=== PATIENT | male | born 1965 | race Hispanic/Latino ===

== ENCOUNTER 2017-02-09 17:13 | Emergency (ER) | payer MEDICAID ==
[2017-02-09 17:26] VITALS: RESP 20; TEMP 97.7
[2017-02-09] MEDS ORDERED: Naloxone 0.4 mg/ml Inj (Adult) ONE (17:36)
[2017-02-09] MEDS ORDERED: Naloxone 0.4 mg/ml Inj (Adult) IVP ONE (17:38)
[2017-02-09 18:11] LABS: BASO # 0.1 K/uL (0.0-0.2); BASO % 1.1 % (0.0-2.0); EOS # 0.1 K/uL (0.0-0.7); EOS % 1.7 % (0.0-4.0); LYMPH # 2.1 K/uL (1.0-4.3); LYMPH % 29.8 % (20.0-40.0); MEAN CELL VOLUME 86.7 fL (80.0-94.0); MEAN CORPUSCULAR HGB CONC 33.5 g/dL (33.0-37.0); MONO # 0.5 K/uL (0.0-0.8); MONO % 7.4 % (0.0-10.0); RED CELL DISTRIBUTION WIDTH 13.3 % (11.5-14.5)
[2017-02-09 18:15] LABS: CHLORIDE 105 mmol/L (98-107); SODIUM 143 mmol/L (132-148)
[2017-02-09 18:16] LABS: POTASSIUM 3.6 mmol/L (3.6-5.2)
[2017-02-09 18:18] LABS: ALB/GLOB RATIO 1.5 (1.0-2.1); ALKALINE PHOSPHATASE 54 U/L (38-126); ALT/SGPT 54 U/L (21-72); AST/SGOT 51 U/L (17-59); BILIRUBIN,TOTAL 0.6 mg/dL (0.2-1.3); BLOOD UREA NITROGEN 15 mg/dL (9-20); CALCIUM 8.5 mg/dl (8.6-10.4); CARBON DIOXIDE 22 mmol/L (22-30); GFR AFRICAN-AMERICAN > 60; GLUCOSE,RANDOM 105 mg/dL (75-110); TOTAL PROTEIN 7.1 g/dL (6.3-8.3)
[2017-02-09 18:19] LABS: ALCOHOL SERUM 159 mg/dl (0-10)
--- NOTE | 2017-02-09 18:23 | RAD ---
PROCEDURE: CHEST RADIOGRAPH, 1 VIEW. Portable study 18:00. HISTORY: Detox/Psy COMPARISON: 05/29/2016. FINDINGS: LUNGS: Clear. PLEURA: No pneumothorax or pleural fluid seen. CARDIOVASCULAR: No radiographic findings to suggest acute or significant cardiovascular disease. OSSEOUS STRUCTURES: No significant abnormalities. VISUALIZED UPPER ABDOMEN: Normal. OTHER FINDINGS: None. IMPRESSION: No active disease. No acute/significant interval changes.
[2017-02-09 18:25] VITALS: BP 128/78; PULSE 58; O2SAT 98
--- NOTE | 2017-02-09 18:55 | C.PDOC ---
History Of Present Illness 51 y/o male presents to ED via EMS for public intoxication and heroin abuse. Patient states he meant to buy cocaine from his drug dealer today but received heroin instead. Reports becoming sleepy after snorting it. Denies any other physical complaints at this time. Patient with many past presentations for alcohol abuse. Time Seen by Provider: 02/09/17 17:31 Chief Complaint (Nursing): Substance Abuse History Per: Patient History/Exam Limitations: no limitations Onset/Duration Of Symptoms: Hrs Current Symptoms Are (Timing): Still Present Modifying Factor(s): Alcohol, Narcotics Recent travel outside of the [place]: No Past Medical History Reviewed: Historical Data, Nursing Documentation, Vital Signs Vital Signs: Last Vital Signs Temp 97.7 F 02/09/17 17:25 Pulse 58 L 02/09/17 18:24 Resp 20 02/09/17 18:24 BP 128/78 02/09/17 18:24 Pulse Ox 98 02/09/17 19:06 - Medical History PMH: Anxiety, Bronchitis, COPD (Chronic bronchitis), Hepatitis, Pneumonia - [facility] Procedures DETOXIFICATION SERVICES FOR SUBSTANCE ABUSE TREATMENT (05/26/16) GROUP PSYCHOTHERAPY (05/26/16) LINEAR REP LID LACER (07/03/15) SUTURE OF LIP LACERATION (07/03/15) Family History: States: Unknown Family Hx - Social History Hx Tobacco Use: Yes Hx Alcohol Use: Yes Hx Substance Use: Yes (30 yrs ago) - Immunization History Hx Tetanus Toxoid Vaccination: No Hx Influenza Vaccination: No Hx Pneumococcal Vaccination: Yes Review Of Systems Except As Marked, All Systems Reviewed And Found Negative. Constitutional: Negative for: Fever, Chills Cardiovascular: Negative for: Chest Pain, Palpitations Respiratory: Negative for: Cough, Shortness of Breath, Wheezing Gastrointestinal: Negative for: Nausea, Vomiting Skin: Negative for: Rash Neurological: Negative for: Headache, Dizziness Physical Exam - Physical Exam Appears: Non-toxic, No Acute Distress, Other (somnolent, etoh on breath) Skin: Warm, Dry Head: Atraumatic, Normacephalic Eye(s): bilateral: Normal Inspection, Other (pinpoint) Oral Mucosa: Moist Chest: Symmetrical Cardiovascular: Rhythm Regular Respiratory: Normal Breath Sounds, No Rales, No Rhonchi, No Wheezing Gastrointestinal/Abdominal: Soft, No Tenderness, No Guarding, No Rebound Extremity: Normal ROM, Capillary Refill (< 2 sec. ) Neurological/Psych: Oriented x3, Normal Speech, Normal Cognition ED Course And Treatment - Laboratory Results Result Diagrams: 02/09/17 18:03 02/09/17 18:03 Lab Interpretation: Abnormal (etoh 159H, tox + opiates, cocaine, thc) O2 Sat by Pulse Oximetry: 98 (RA) Pulse Ox Interpretation: Normal Progress Note: Treated with Narcan. EKG, UDS, UA ordered. O2 via nasal cannula applied. Reevaluation Time: 19:36 Reassessment Condition: Improved (clinically sober, texting and speaking on phone) Medical Decision Making Medical Decision Making: polysubstance abuse Disposition Doctor Will See Patient In The: Office Counseled Patient/Family Regarding: Studies Performed, Diagnosis - Disposition Disposition: HOME/ ROUTINE Disposition Time: 19:37 Condition: GOOD - Clinical Impression Clinical Impression: Alcohol dependence, Polysubstance (including opioids) dependence w/o physiol dependence - Scribe Statement The provider has reviewed the documentation as recorded by the Lul Tellez Provider Scribe Attestation: All medical record entries made by the Lul were at my direction and personally dictated by me. I have reviewed the chart and agree that the record accurately reflects my personal performance of the history, physical exam, medical decision making, and the department course for this patient. I have also personally directed, reviewed, and agree with the discharge instructions and disposition.
[2017-02-09 19:18] LABS: RBC URINE 31 /hpf (0-3); URINE BACTERIA RARE (<OCC); URINE BILIRUBIN NEGATIVE (NEGATIVE); URINE BLOOD 2+ (NEGATIVE); URINE COLOR Yellow (YELLOW); URINE GLUCOSE (UA) NORMAL (Normal); URINE KETONE NEGATIVE (NEGATIVE); URINE LEUKOCYTE ESTERASE NEG Leu/uL (Negative); URINE PROTEIN NEGATIVE (NEGATIVE); URINE UROBILINOGEN NORMAL mg/dL (0.2-1.0); WBC URINE 1 /hpf (0-5)
--- NOTE | 2017-02-14 09:00 | CARD ---
APPROVED REPORT EKG Measurement Heart [id number] <Conclusion> Normal sinus rhythm LEFT AXIS DEVIATION ABNormal ECG
== END 2017-02-09 19:40 | disposition home or self-care (01) ==
LOC: C.ER 17:13
DX: F10.20 Alcohol dependence, uncomplicated (principal); F11.20 Opioid dependence, uncomplicated; Y90.6 Blood alcohol level of 120-199 mg/100 ml
CPT/HCPCS: 71010; 80053; 80320; 80324; 80345; 80346; 80349; 80353; 80358; 80361; 81001; 83992; 84484; 85025; 96374; 99285; J2310

== ENCOUNTER 2017-03-22 14:03 | Emergency (ER) | payer MEDICAID ==
[2017-03-22 15:19] VITALS: PULSE 74; RESP 20; TEMP 98.2; O2SAT 95
--- NOTE | 2017-03-22 16:04 | C.PDOC ---
History Of Present Illness 52 y/o male presents to ED requesting detox. Patient states he "wanted to self detox from ETOH so he started using heroin". Patient is currently at ED asking for detox of both heroin and ETOH. No other complaints at this time. Time Seen by Provider: 03/22/17 16:01 Chief Complaint (Nursing): Substance Abuse History Per: Patient History/Exam Limitations: no limitations Onset/Duration Of Symptoms: Days Current Symptoms Are (Timing): Still Present Modifying Factor(s): Alcohol Past Medical History Reviewed: Historical Data, Nursing Documentation, Vital Signs Vital Signs: Last Vital Signs Temp 98.2 F 03/22/17 15:17 Pulse 74 03/22/17 15:17 Resp 20 03/22/17 15:17 BP 133/68 03/22/17 15:17 Pulse Ox 95 03/22/17 16:04 - Medical History PMH: Anxiety, Bronchitis, COPD (Chronic bronchitis), Hepatitis, Pneumonia - [facility] Procedures DETOXIFICATION SERVICES FOR SUBSTANCE ABUSE TREATMENT (05/26/16) GROUP PSYCHOTHERAPY (05/26/16) LINEAR REP LID LACER (07/03/15) SUTURE OF LIP LACERATION (07/03/15) Family History: States: Unknown Family Hx - Social History Hx Tobacco Use: Yes Hx Alcohol Use: Yes Hx Substance Use: Yes (30 yrs ago) - Immunization History Hx Tetanus Toxoid Vaccination: No Hx Influenza Vaccination: No Hx Pneumococcal Vaccination: Yes Review Of Systems Except As Marked, All Systems Reviewed And Found Negative. Constitutional: Negative for: Fever, Chills Cardiovascular: Negative for: Chest Pain Respiratory: Negative for: Shortness of Breath Gastrointestinal: Negative for: Nausea, Vomiting, Diarrhea Neurological: Negative for: Weakness, Headache Psych: Negative for: Anxiety, Depression Physical Exam - Physical Exam Appears: No Acute Distress Skin: Normal Color, Warm Head: Atraumatic, Normacephalic Oral Mucosa: Moist Neck: Normal ROM Respiratory: No Rales, No Rhonchi, No Wheezing Gastrointestinal/Abdominal: Soft, No Tenderness, No Guarding, No Rebound Extremity: Normal ROM, Capillary Refill (<2 seconds) Neurological/Psych: Oriented x3, Normal Speech ED Course And Treatment O2 Sat by Pulse Oximetry: 95 (RA) Pulse Ox Interpretation: Normal - Physician Consult Information Time Consulting Physician Contacted: 16:02 Outcome Of Conversation: D/W CRISIS MARIE, NO DETOX BEDS Medical Decision Making Medical Decision Making: Plan: Detox medications are currently unavailable, Patient will be D/C with a list of detox centers Disposition Counseled Patient/Family Regarding: Diagnosis, Need For Followup - Disposition Referrals: [facility] [Other] Disposition: HOME/ ROUTINE Disposition Time: 16:03 Condition: GOOD Instructions: Polysubstance Abuse (ED) - Clinical Impression Clinical Impression: Polysubstance abuse - PA / UNINDENTURED APPRENTICE / Resident Statement MD/DO has reviewed & agrees with the documentation as recorded. MD/DO has examined the patient and agrees with the treatment plan. - Scribe Statement The provider has reviewed the documentation as recorded by the Gilmeribsunshine Robles All medical record entries made by the Lul were at my direction and personally dictated by me. I have reviewed the chart and agree that the record accurately reflects my personal performance of the history, physical exam, medical decision making, and the department course for this patient. I have also personally directed, reviewed, and agree with the discharge instructions and disposition.
[2017-03-22 16:35] VITALS: BP 112/68
== END 2017-03-22 16:34 | disposition home or self-care (01) ==
LOC: C.ER 14:03
DX: F11.10 Opioid abuse, uncomplicated (principal); F10.10 Alcohol abuse, uncomplicated; Y90.9 Presence of alcohol in blood, level not specified

== ENCOUNTER 2017-04-19 16:04 | Emergency (ER) | payer MEDICAID ==
[2017-04-19 16:08] VITALS: BP 134/83; PULSE 68; RESP 20; TEMP 98.3; O2SAT 98
--- NOTE | 2017-04-19 17:37 | C.PDOC ---
History Of Present Illness Patient is a 52 y/o male that presents to the ED requesting alcohol detox. Patient notes that last drink was vodka at 2:30 this morning. Pt admits to being homeless, and living in a senior care. Otherwise, denies any suicidal ideation , or any other physical complaints at this time. Time Seen by Provider: 04/19/17 17:04 Chief Complaint (Nursing): Substance Abuse History Per: Patient History/Exam Limitations: no limitations Onset/Duration Of Symptoms: Gradual Current Symptoms Are (Timing): Still Present Suicide/Self Injury Attempted (Context): None Modifying Factor(s): Alcohol Severity: None Pain Scale Rating Of: 0 Associated Symptoms: denies: Suicidal Thoughts, Suicidal Plan Involuntary Hold By: None Recent travel outside of the [place]: No Additional History Per: Patient Past Medical History Reviewed: Historical Data, Nursing Documentation, Vital Signs Vital Signs: Last Vital Signs Temp 98.3 F 04/19/17 16:07 Pulse 68 04/19/17 16:07 Resp 20 04/19/17 16:07 BP 134/83 04/19/17 16:07 Pulse Ox 98 04/19/17 18:06 - Medical History PMH: Anxiety, Bronchitis, COPD (Chronic bronchitis), Hepatitis, Pneumonia Denies: Diabetes, HIV, HTN, Chronic Kidney Disease, Seizures, Sexually Transmitted Disease - [facility] Procedures DETOXIFICATION SERVICES FOR SUBSTANCE ABUSE TREATMENT (05/26/16) GROUP PSYCHOTHERAPY (05/26/16) LINEAR REP LID LACER (07/03/15) SUTURE OF LIP LACERATION (07/03/15) Family History: States: Unknown Family Hx - Social History Hx Tobacco Use: Yes Hx Alcohol Use: Yes Hx Substance Use: Yes (30 yrs ago) - Immunization History Hx Tetanus Toxoid Vaccination: No Hx Influenza Vaccination: No Hx Pneumococcal Vaccination: Yes Review Of Systems Except As Marked, All Systems Reviewed And Found Negative. Constitutional: Negative for: Fever, Chills Cardiovascular: Negative for: Chest Pain, Palpitations Respiratory: Negative for: Shortness of Breath Gastrointestinal: Negative for: Nausea, Vomiting, Abdominal Pain Neurological: Negative for: Headache, Dizziness Psych: Negative for: Suicidal ideation Physical Exam - Physical Exam Appears: Non-toxic, No Acute Distress Skin: Normal Color, Warm, Dry Head: Atraumatic, Normacephalic Eye(s): bilateral: Normal Inspection, EOMI Neck: Normal ROM, Supple Chest: Symmetrical, No Tenderness Cardiovascular: Rhythm Regular, No Murmur Respiratory: Normal Breath Sounds, No Rales, No Rhonchi, No Wheezing Gastrointestinal/Abdominal: Soft, No Tenderness Extremity: Normal ROM, No Deformity Neurological/Psych: Oriented x3, Normal Speech, Normal Cognition ED Course And Treatment O2 Sat by Pulse Oximetry: 98 (on RA) Pulse Ox Interpretation: Normal Progress Note: Patient was evaluated by iron worker foreman, and was informed that there are no detox beds available at this time. Patient was notified that he is pre-screened, and was instructed to return tomorrow morning at 9:00 for detox admission. Disposition - Disposition Disposition: HOME/ ROUTINE Disposition Time: 17:36 Condition: STABLE Additional Instructions: Please return tomorrow at 9 am. You are pre-screened for detox and will have a bed waiting for you. Instructions: Alcohol Dependence (ED) - Clinical Impression Clinical Impression: Alcohol dependence - PA / FIELD COUNSEL / Resident Statement MD/DO has reviewed & agrees with the documentation as recorded. - Scribe Statement The provider has reviewed the documentation as recorded by the Scribsunshine Lerner All medical record entries made by the Gilmeribsunshine were at my direction and personally dictated by me. I have reviewed the chart and agree that the record accurately reflects my personal performance of the history, physical exam, medical decision making, and the department course for this patient. I have also personally directed, reviewed, and agree with the discharge instructions and disposition.
== END 2017-04-19 17:40 | disposition home or self-care (01) ==
LOC: C.ER 16:04
DX: F10.20 Alcohol dependence, uncomplicated (principal); Y90.9 Presence of alcohol in blood, level not specified; Z59.0 Homelessness

== ENCOUNTER 2017-04-20 07:20 | Inpatient (IN) | payer MEDICAID ==
--- NOTE | 2017-04-20 07:41 | C.PDOC ---
History Of Present Illness 52 y/o male presents to ED for alcohol detox. Notes last drink was last night and states that when he attempts to cut back on etoh intake, he begins to get shaky. Denies suicidal or homicidal ideation. Patient also reports he stepped on glass 2 days ago and cut his left toe. Denies any other complaints. Time Seen by Provider: 04/20/17 07:40 Chief Complaint (Nursing): Substance Abuse History Per: Patient History/Exam Limitations: no limitations Onset/Duration Of Symptoms: Persistent Current Symptoms Are (Timing): Still Present Modifying Factor(s): Alcohol Associated Symptoms: denies: Suicidal Thoughts, Suicidal Plan Recent travel outside of the [place]: No Past Medical History Reviewed: Historical Data, Nursing Documentation, Vital Signs Vital Signs: Last Vital Signs Temp 97.9 F 04/20/17 13:41 Pulse 65 04/20/17 13:41 Resp 18 04/20/17 13:41 BP 143/89 04/20/17 13:41 Pulse Ox 97 04/20/17 13:41 - Medical History PMH: Anxiety, Bronchitis, COPD (Chronic bronchitis), Hepatitis, Pneumonia - [facility] Procedures DETOXIFICATION SERVICES FOR SUBSTANCE ABUSE TREATMENT (05/26/16) GROUP PSYCHOTHERAPY (05/26/16) LINEAR REP LID LACER (07/03/15) SUTURE OF LIP LACERATION (07/03/15) Family History: States: Other Other Family History: n[place] - Social History Hx Tobacco Use: Yes Hx Alcohol Use: Yes Hx Substance Use: Yes (casually) - Immunization History Hx Tetanus Toxoid Vaccination: No Hx Influenza Vaccination: No Hx Pneumococcal Vaccination: Yes Review Of Systems Except As Marked, All Systems Reviewed And Found Negative. Constitutional: Negative for: Fever Cardiovascular: Negative for: Chest Pain Respiratory: Negative for: Cough, Shortness of Breath, Wheezing Gastrointestinal: Negative for: Nausea, Vomiting, Abdominal Pain Skin: Negative for: Rash Neurological: Negative for: Headache, Dizziness Psych: Negative for: Withdrawal Physical Exam - Physical Exam Appears: Non-toxic, No Acute Distress Skin: Warm, Dry Head: Atraumatic, Normacephalic Chest: Symmetrical Cardiovascular: Rhythm Regular Respiratory: Normal Breath Sounds, No Rales, No Rhonchi, No Wheezing Gastrointestinal/Abdominal: Soft, No Tenderness, No Guarding, No Rebound Back: Normal Inspection Extremity: Normal ROM, Capillary Refill (< 2 sec.), Other (left foot: no visible laceration, bleeding, erythema, or swelling) Neurological/Psych: Oriented x3, Normal Speech, Normal Cognition ED Course And Treatment - Laboratory Results Result Diagrams: 04/20/17 07:55 04/20/17 07:55 O2 Sat by Pulse Oximetry: 100 (RA) Pulse Ox Interpretation: Normal Progress Note: EKG, labs, left foot x-ray ordered and reviewed. Medical Decision Making Medical Decision Making: EKG interpretation: Sinus bradycardia 62 with left axis deviation. I explored the pts left great toe and there is no evidence of tiny superifical fb seen on xr Disposition - Disposition Disposition: HOSPITALIZED Disposition Time: 07:56 Condition: GOOD - Clinical Impression Clinical Impression: Alcohol dependence - Scribe Statement The provider has reviewed the documentation as recorded by the Lul Cheyenne Provider Attestation: All medical record entries made by the Gilmeribsunshine were at my direction and personally dictated by me. I have reviewed the chart and agree that the record accurately reflects my personal performance of the history, physical exam, medical decision making, and the department course for this patient. I have also personally directed, reviewed, and agree with the discharge instructions and disposition.
[2017-04-20 07:59] LABS: BASO # 0.1 K/uL (0.0-0.2); BASO % 0.9 % (0.0-2.0); EOS # 0.3 K/uL (0.0-0.7); HEMOGLOBIN 14.4 g/dL (12.0-18.0); LYMPH # 2.5 K/uL (1.0-4.3); LYMPH % 25.2 % (20.0-40.0); MEAN CELL VOLUME 86.4 fL (80.0-94.0); MEAN CORPUSCULAR HEMOGLOBIN 29.5 pg (27.0-31.0); MEAN CORPUSCULAR HGB CONC 34.1 g/dL (33.0-37.0); MEAN PLATELET VOLUME 8.7 fL (7.2-11.7); NEUT # 5.9 K/uL (1.8-7.0); NEUT % 60.9 % (50.0-75.0); RBC 4.87 Mil/uL (4.40-5.90); RED CELL DISTRIBUTION WIDTH 12.8 % (11.5-14.5); WHITE BLOOD COUNT 9.8 K/uL (4.8-10.8)
[2017-04-20 08:12] LABS: ALBUMIN 3.6 g/dL (3.5-5.0)
[2017-04-20 08:15] LABS: ALB/GLOB RATIO 1.1 (1.0-2.1); AST/SGOT 56 U/L (17-59); BLOOD UREA NITROGEN 14 mg/dL (9-20); GFR AFRICAN-AMERICAN > 60; GFR NON-AFRICAN AMERICAN > 60
[2017-04-20 08:16] LABS: ALT/SGPT 63 U/L (21-72); CALCIUM 8.7 mg/dl (8.6-10.4)
[2017-04-20 08:38] LABS: URINE BILIRUBIN NEGATIVE (NEGATIVE); URINE BLOOD NEGATIVE (NEGATIVE); URINE CLARITY Clear (Clear); URINE COLOR Yellow (YELLOW); URINE GLUCOSE (UA) NORMAL (Normal); URINE LEUKOCYTE ESTERASE NEG Leu/uL (Negative); URINE NITRATE NEGATIVE (NEGATIVE); URINE PROTEIN NEGATIVE (NEGATIVE); URINE UROBILINOGEN NORMAL mg/dL (0.2-1.0)
[2017-04-20 08:47] LABS: BARBITURATES, UR NEGATIVE (NEGATIVE)
[2017-04-20 08:50] LABS: PHENCYCLIDINE, UR NEGATIVE (NEGATIVE)
[2017-04-20 08:51] LABS: OPIATES, UR NEGATIVE (NEGATIVE)
[2017-04-20 09:09] LABS: BENZODIAZEPINES, UR POSITIVE (NEGATIVE)
--- NOTE | 2017-04-20 09:27 | RAD ---
PROCEDURE: Radiographs of the left great toe. TECHNIQUE:: AP radiograph of the left foot, with oblique and lateral view of the left great toe. COMPARISON: No prior study available for comparison FINDINGS: BONES: No evidence of acute displaced fracture nor dislocation. Osseous structures appear intact. No cortical destructive changes. There is a very tiny radiopaque foreign body density JOINTS: Minor hallux valgus deformity with minor DJD 1st MTP joint. SOFT TISSUES: There is a tiny radiopaque density possibly within the plantar subcutaneous tissues just beneath the skin surface or on the skin surface at the level of DIP joint great toe OTHER FINDINGS: None. IMPRESSION: Questionable foreign body within the plantar soft tissues great toe as above. No acute fractures
--- NOTE | 2017-04-20 11:18 | PCM.PSYCH ---
Initial Psychiatric Evaluation - Initial Psychiatric Evaluation Type of Admission: Voluntary Legal Status: Capacity Chief Complaint (in patient's own words): "I relapsed" History of Present Illness and Precipitating Events: The patient is seen, chart reviewed and case discussed. This is a 52-year-old male, with one child who is an adult, lives with his sister or brother, unemployed. He is known to the tag writer from a 2016 admission detox. The patient drinks 6-10 of the 24 ounce cans of beer. He says he relapsed 2 months ago but he has a history of 40 years. This is his fourth detox and he was in rehabilitation 3 times and he goes to AA sometimes. He uses drugs on and off especially marijuana. Denies cigarette use. His urine is positive for benzos but he denies using the pills He had DTs in the past He has mild depressive and anxious symptoms but no disorder. Past psych history: Anxiety mostly. No admissions Family psych history: On his mother side many people drink. 2 siblings had psychiatric issues. Medical history: Hepatitis C Past Psychiatric History - Past Psychiatric History Previous Treatment History: None Pertinent Medical Hx (Current Medical&Sleep Prob, Allergies): Allergies Allergy/AdvReac Type Severity Reaction Status Date / Time morphine Allergy Intermediate RASH Verified 04/19/17 16:11 No Known Home Med 03/22/17 Review of Systems - Psychiatric Psychiatric: Abnormal Sleep Pattern, Anxiety, Irritability. absent: Hallucinations, Homicidal Ideation, Suicidal Ideation Mental Status Examination - Personal Presentation Personal Presentation: Looks stated age - Affect Affect: Constricted - Motor Activity Motor Activity: Calm - Reliability in Providing Information Reliability in Providing Information: Good - Speech Speech: Organized - Mood Mood: Anxious - Formal Thought Process Formal Thought Process: No Impairment - Cognitive Functions Orientation: Person, Place, Situation, Time Sensorium: Alert Attention/Concentration: Attentive Estimate of Intelligence: Average Judgement: Intact, as evidence by: Insight regarding need for hospitalization Memory: Recent intact, as evidence by: Ability to recall events of the day, Remote intact, as evidenced by: Abilit to recall sig. life events - Risk Risk: Withdrawal, Diminished functioning - Strength & Assets Inventory Strength & Assets Inventory: Family support, Cooperative - Limitations Limitations: Living alone DSM 5 DX - DSM 5 DSM 5 Diagnosis: Alcohol withdrawal Alcohol use d/o - severe Tobacco use d/o - mild - Recommended/Plan of Treatment Treatment Recommendations and Plan of Treatment: Librium detox Gabapentin for augmentation As needed meds and vitamins Attend groups and activities CT for abstinence and CBT for relapse prevention Support and psychoeducation Consider and encourage MAT Refer to after care 33 min Projected ELOS: 5 days Prognosis: good with treatment Discharge Plan and Discharge Criteria: refer to rehab - Smoking Cessation Smoking Cessation Initiated: No Reason for not providing: no cig.
[2017-04-20] MEDS: Multiple Vitamins Tab PO SCH (13:57)
[2017-04-21] MEDS: Multiple Vitamins Tab PO SCH (10:47)
[2017-04-21] MEDS: Pantoprazole 20 mg EC Tab PO SCH (16:26)
--- NOTE | 2017-04-21 17:29 | PCM.PYCHPN ---
Psychiatric Progress Note - Psychiatric Progress Note Patient seen today, length of contact: 16 min Patient Chief Complaint: "My stomach hurts" Problems Identified/Issues Discussed: The pt is seen, chart reviewed, case discussed with staff. Support given, CBT and NE used briefly No new symptoms reported, improving slowly and needs some more time No SEs from medications, risks discussed. After care discussed Medication Change: Yes (detox changes daily) Medical Record Reviewed: Yes Mental Status Examination - Cognitive Function Orientation: Person, Place, Situation, Time Memory: Intact Attention: WNL Concentration: Poor Association: WNL Fund of Knowledge: WNL - Mood Mood: Anxious - Affect Affect: Constricted - Speech Speech: Appropriate - Formal Thought Process Formal Thought Process: No Impairment - Suicidal Ideation Suicidal Ideation: No - Homicidal Ideation Homicidal Ideation: No Goal/Treatment Plan - Goal/Treatment Plan Need for Continued Stay: Discharge may exacerbated symptoms, Severe functional impairment Progress Toward Problem(s) and Goals/Treatment Plan: Librium detox Gabapentin for augmentation As needed meds and vitamins Attend groups and activities NE for abstinence and CBT for relapse prevention Support and psychoeducation Consider and encourage MAT Refer to after care IRMA/LIP ordered due to GI pain Estimated Date of D/C: 04/24/17
[2017-04-22] MEDS: Multiple Vitamins Tab PO SCH (09:11)
[2017-04-22] MEDS: Pantoprazole 20 mg EC Tab PO SCH (09:11)
--- NOTE | 2017-04-22 11:48 | CP.PCM.PCO ---
Physician Communication Note - Physician Communication Note Physician Communication Note: Amylase and Lipase came slightly elevated. To be repated today.
--- NOTE | 2017-04-22 13:41 | PCM.PYCHPN ---
Psychiatric Progress Note - Psychiatric Progress Note Patient seen today, length of contact: 15 minutes Patient Chief Complaint: I'm feeling better but I have pain in my lower abdomen. Also I'm feeling nauseous. Problems Identified/Issues Discussed: Patient seen. Chart reviewed. Case discussed with the staff. Issues related to illness and treatment were discussed with the patient. Reported feeling better with some pain in his lower abdomen. Also reported nausea at times. Patient's Amylase and lipase were high, will repeat and also will call medicine to rule out pancreatitis. Reported compliant with treatment with no adverse affects. Except abdominal pain denied any withdrawal symptoms. At the time of evaluation , patient was awake alert oriented 3, had no delusions, no auditory or visual hallucinations, no suicidal ideations or homicidal ideations. Medical Problems: Hepatitis C Diagnostic Results: Reviewed DSM 5 Symptoms Update: Some improvement with treatment Medication Change: No Medical Record Reviewed: Yes Consults ordered or reviewed: Internal medicine consult ordered Mental Status Examination - Cognitive Function Orientation: Person, Place, Situation, Time Memory: Intact Attention: WNL Concentration: WNL Association: [facility] Fund of Knowledge: [facility] Decription of patient's judgement and insights: Fair - Mood Mood: Neutral - Affect Affect: Other (Appropriate) - Speech Speech: Appropriate - Formal Thought Process Formal Thought Process: No Impairment Psychotic Thoughts and Behaviors: None - Suicidal Ideation Suicidal Ideation: No - Homicidal Ideation Homicidal Ideation: No Goal/Treatment Plan - Goal/Treatment Plan Need for Continued Stay: Remain at risks for inpatient hospitalization, Discharge may exacerbated symptoms, Severe functional impairment Progress Toward Problem(s) and Goals/Treatment Plan: Some improvement with treatment Patient education Supportive therapy Tenisha for nausea Internal medicine consult Continue rest of the treatment as before Estimated Date of D/C: 04/24/17 - Smoking Cessation Smoking Cessation Initiated: No
[2017-04-22 14:31] LABS: AMYLASE 139 U/L (30-110); LIPASE 222 U/L (23-300)
--- NOTE | 2017-04-22 15:24 | CP.PCM.CON ---
<Pavan Phan - Last Filed: 04/22/17 15:39> History of Present Illness - History of Present Illness History of Present Illness: Consult Note- Hospitalist Service Patient was seen and examined at bedside. Medicine was consulted for management of abdominal pain, nausea, vomiting, possibly pancreatitis. Patient reports he has had abdominal pain for several days. He said he vomited once per day for the past 2 days, and vomited twice today, after meals. He says he is unsure if he's had abdominal pain like this before, as he suspects he might have while he was drinking but does not remember. He denies any fevers or chills. He states he is here for alcohol detox, but states he may have used other drugs like cocaine or heroin recently, but while he was drinking, so he doesnt remember. He says he has been drinking about ten 24-oz beers everyday for the past 3 months. PMHx: Alcoholism, hepatitis C PSHx: left shoulder surgery Allergies: Morphine Fam hx: noncontributory Social hx: Smokes occasionally, drinking as stated above. Occasional heroin, cocaine use. Hx of IV drug abuse Review of Systems - Constitutional Constitutional: absent: Chills - EENT Eyes: absent: Blurred Vision Nose/Mouth/Throat: absent: Nasal Congestion, Nasal Discharge - Respiratory Respiratory: absent: Cough, Dyspnea, Hemoptysis, Wheezing - Gastrointestinal Gastrointestinal: Abdominal Pain, Nausea, Vomiting. absent: Constipation, Diarrhea - Genitourinary Genitourinary: absent: Difficulty Urinating, Dysuria - Integumentary Integumentary: absent: Skin Ulcer, Sores, Striae, Wounds - Neurological Neurological: absent: Abnormal Movements, Tingling, Weakness - Psychiatric Psychiatric: absent: Panic Attacks, Suicidal Ideation - Endocrine Endocrine: absent: Fatigue, Palpitations Past Patient History - Infectious Disease Hx of Infectious Diseases: None - Past Medical History & Family History Past Medical History?: Yes - Past Social History Smoking Status: Current Some Days Smoker Chewing Tobacco Use: No Cigar Use: No Alcohol: > 2 Drinks/Day Drugs: Cannabis, Cocaine - CARDIAC Hx Cardiac Disorders: No Hx Hypertension: No - PULMONARY Hx Bronchitis: Yes Hx Chronic Obstructive Pulmonary Disease (COPD): Yes (Chronic bronchitis) Hx Pneumonia: Yes - NEUROLOGICAL Hx Neurological Disorder: No HX Cerebrovascular Accident: No Hx Seizures: No - HEENT Hx HEENT Problems: Yes Other/Comment: " defect on L eye,Blurry Vision " - RENAL Hx Chronic Kidney Disease: No - ENDOCRINE/METABOLIC Hx Endocrine Disorders: No - HEMATOLOGICAL/ONCOLOGICAL Hx Blood Disorders: No Hx Cancer: No Hx Human Immunodeficiency Virus (HIV): No - INTEGUMENTARY Hx Dermatological Problems: No - MUSCULOSKELETAL/RHEUMATOLOGICAL Hx Falls: No - GASTROINTESTINAL Hx Gastrointestinal Disorders: No - GENITOURINARY/GYNECOLOGICAL Hx Genitourinary Disorders: No Hx Sexually Transmitted Disorders: No - PSYCHIATRIC Hx Anxiety: Yes Hx Substance Use: Yes (casually) - SURGICAL HISTORY Hx Surgeries: Yes Hx Orthopedic Surgery: Yes Other/Comment: Surgery on L shoulder 2 years ago from injury", a big TV fell on my Shoulder" - ANESTHESIA Hx Anesthesia: Yes Hx Anesthesia Reactions: No Hx Malignant Hyperthermia: No Has any member of the family had a problem w/ anesthesia?: No Meds Allergies/Adverse Reactions: Allergies Allergy/AdvReac Type Severity Reaction Status Date / Time morphine Allergy Intermediate RASH Verified 04/19/17 16:11 - Medications Medications: Current Medications Chlordiazepoxide (Librium) 25 mg PO BID [facility] PRN Reason: Taper Stop: 04/24/17 11:59 Last Admin: 04/22/17 09:11 Dose: 25 mg Chlordiazepoxide (Librium) 25 mg PO Q4H PRN PRN Reason: Alcohol Withdrawal Clonidine HCl (Catapres) 0.1 mg PO Q4H PRN PRN Reason: Symptoms of alcohol withdrawl Folic Acid (Folic Acid) 1 mg PO DAILY [facility] Last Admin: 04/22/17 09:11 Dose: 1 mg Gabapentin (Neurontin) 300 mg PO BID [facility] Last Admin: 04/22/17 09:11 Dose: 300 mg Hydroxyzine HCl (Atarax) 50 mg PO Q6H PRN PRN Reason: Anxiety Last Admin: 04/20/17 22:02 Dose: 50 mg Ibuprofen (Motrin Tab) 600 mg PO Q6H PRN PRN Reason: Pain, moderate (4-7) Multivitamins (Hexavitamin) 1 tab PO DAILY [facility] Last Admin: 04/22/17 09:11 Dose: 1 tab Naltrexone HCl (Revia) 50 mg PO QPM [facility] Last Admin: 04/21/17 17:30 Dose: 50 mg Pantoprazole Sodium (Protonix Ec Tab) 20 mg PO DAILY [facility] Last Admin: 04/22/17 09:11 Dose: 20 mg Thiamine HCl (Vitamin B1 Tab) 100 mg PO DAILY [facility] Last Admin: 04/22/17 09:11 Dose: 100 mg Trazodone HCl (Desyrel) 50 mg PO HS PRN PRN Reason: Insomnia Last Admin: 04/21/17 22:14 Dose: 50 mg Physical Exam - Constitutional Appears: Non-toxic, No Acute Distress - Head Exam Head Exam: ATRAUMATIC, NORMAL INSPECTION, NORMOCEPHALIC - Eye Exam Pupil Exam: NORMAL ACCOMODATION, PERRL - ENT Exam ENT Exam: Mucous Membranes Moist - Respiratory Exam Respiratory Exam: Clear to Auscultation Bilateral, NORMAL BREATHING PATTERN. absent: Prolonged Expiratory Phase, Rales, Rhonchi, Wheezes - Cardiovascular Exam Cardiovascular Exam: REGULAR RHYTHM, +S1, +S2 - GI/Abdominal Exam GI & Abdominal Exam: Normal Bowel Sounds, Soft, Tenderness (diffusely tender). absent: Distended, Firm - Extremities Exam Extremities exam: Positive for: normal capillary refill, pedal pulses present - Neurological Exam Neurological exam: Alert, CN II-XII Intact, Oriented x3 - Psychiatric Exam Psychiatric exam: Normal Affect, Normal Mood - Skin Skin Exam: Dry, Intact, Normal Color, Warm Results - Vital Signs Recent Vital Signs: Last Vital Signs Temp 97.5 F L 04/22/17 13:00 Pulse 84 04/22/17 13:00 Resp 16 04/22/17 13:00 BP 118/77 04/22/17 13:00 Pulse Ox 96 04/22/17 13:00 - Labs Result Diagrams: 04/20/17 07:55 04/20/17 07:55 Labs: Laboratory Results - last 24 hr 04/21/17 04/22/17 19:35 14:06 Magnesium 2.0 Amylase 133 H 139 H Lipase 313 H 222 Assessment & Plan (1) Pancreatitis Status: Acute Comment: Likely from alcohol abuse. Lipase elevated - 322- on 04/21/17. Lipase normalized - 222- on 04/22/17. Patient started on clear liquid diet. Counselled on alcohol cessation. Started on Pepcid 20mg PO Daily (2) Alcohol abuse Status: Acute Comment: Management as per psych team <Jewel Prado - Last Filed: 04/22/17 16:48> Meds - Medications Medications: Current Medications Chlordiazepoxide (Librium) 25 mg PO BID [facility] PRN Reason: Taper Stop: 04/24/17 11:59 Last Admin: 04/22/17 09:11 Dose: 25 mg Chlordiazepoxide (Librium) 25 mg PO Q4H PRN PRN Reason: Alcohol Withdrawal Clonidine HCl (Catapres) 0.1 mg PO Q4H PRN PRN Reason: Symptoms of alcohol withdrawl Famotidine (Pepcid) 20 mg PO BID [facility] Folic Acid (Folic Acid) 1 mg PO DAILY [facility] Last Admin: 04/22/17 09:11 Dose: 1 mg Gabapentin (Neurontin) 300 mg PO BID [facility] Last Admin: 04/22/17 09:11 Dose: 300 mg Hydroxyzine HCl (Atarax) 50 mg PO Q6H PRN PRN Reason: Anxiety Last Admin: 04/20/17 22:02 Dose: 50 mg Ibuprofen (Motrin Tab) 600 mg PO Q6H PRN PRN Reason: Pain, moderate (4-7) Multivitamins (Hexavitamin) 1 tab PO DAILY [facility] Last Admin: 04/22/17 09:11 Dose: 1 tab Naltrexone HCl (Revia) 50 mg PO QPM [facility] Last Admin: 04/21/17 17:30 Dose: 50 mg Pantoprazole Sodium (Protonix Ec Tab) 20 mg PO DAILY [facility] Last Admin: 04/22/17 09:11 Dose: 20 mg Thiamine HCl (Vitamin B1 Tab) 100 mg PO DAILY [facility] Last Admin: 04/22/17 09:11 Dose: 100 mg Trazodone HCl (Desyrel) 50 mg PO HS PRN PRN Reason: Insomnia Last Admin: 04/21/17 22:14 Dose: 50 mg Results - Vital Signs Recent Vital Signs: Last Vital Signs Temp 98 F 04/22/17 15:51 Pulse 70 04/22/17 15:51 Resp 18 04/22/17 15:51 BP 108/72 04/22/17 15:51 Pulse Ox 98 04/22/17 15:51 - Labs Result Diagrams: 04/20/17 07:55 04/20/17 07:55 Labs: Laboratory Results - last 24 hr 04/21/17 04/22/17 19:35 14:06 Magnesium 2.0 Amylase 133 H 139 H Lipase 313 H 222 Attending/Attestation - Attestation I have personally seen and examined this patient.: Yes I have fully participated in the care of the patient.: Yes I have reviewed all pertinent clinical information: Yes Notes (Text): 04/22/17 16:47 Patient was seen and examined at bedside and I discussed the plan of care with the resident in detail next and we'll start the patient on clear liquid diet and monitor for any abdominal pain. We will advance the diet as tolerated. I agree with the history and physical and assessment/plan by the resident.
[2017-04-23 08:50] LABS: BASO # 0.1 K/uL (0.0-0.2); BASO % 0.7 % (0.0-2.0); EOS # 0.2 K/uL (0.0-0.7); EOS % 1.6 % (0.0-4.0); HEMOGLOBIN 14.4 g/dL (12.0-18.0); LYMPH # 2.4 K/uL (1.0-4.3); LYMPH % 17.4 % (20.0-40.0); MEAN CELL VOLUME 87.3 fL (80.0-94.0); MEAN CORPUSCULAR HEMOGLOBIN 29.1 pg (27.0-31.0); MEAN CORPUSCULAR HGB CONC 33.3 g/dL (33.0-37.0); MEAN PLATELET VOLUME 9.2 fL (7.2-11.7); MONO % 7.2 % (0.0-10.0); NEUT # 9.9 K/uL (1.8-7.0); NEUT % 73.1 % (50.0-75.0); RBC 4.95 Mil/uL (4.40-5.90); RED CELL DISTRIBUTION WIDTH 12.6 % (11.5-14.5); WHITE BLOOD COUNT 13.6 K/uL (4.8-10.8)
[2017-04-23 09:01] LABS: ALBUMIN 3.5 g/dL (3.5-5.0)
[2017-04-23 09:03] LABS: GFR AFRICAN-AMERICAN > 60; GFR NON-AFRICAN AMERICAN > 60
[2017-04-23 09:04] LABS: ALB/GLOB RATIO 1.1 (1.0-2.1); ALT/SGPT 43 U/L (21-72); AST/SGOT 33 U/L (17-59); BLOOD UREA NITROGEN 17 mg/dL (9-20)
[2017-04-23 09:05] LABS: CALCIUM 9.1 mg/dl (8.6-10.4)
[2017-04-23] MEDS: Pantoprazole 20 mg EC Tab PO SCH (09:39)
[2017-04-23] MEDS: Lactated Ringer's 1,000 ML IV SCH ×3 (10:24→21:43)
[2017-04-23] MEDS: Multiple Vitamins Tab PO SCH (10:25)
--- NOTE | 2017-04-23 10:56 | CARD ---
APPROVED REPORT EKG Measurement Heart [id number] SD [id number] <Conclusion> * Pediatric ECG analysis * Sinus bradycardia Left axis deviation
--- NOTE | 2017-04-23 13:35 | PCM.PYCHPN ---
Psychiatric Progress Note - Psychiatric Progress Note Patient seen today, length of contact: 15 minutes Patient Chief Complaint: "I've been throwing up" Problems Identified/Issues Discussed: The pt is seen, chart reviewed, case discussed with staff. The pt is compliant with medications and reports no side-effects. Symptoms are improving but needs more time to stabilize. After care discussed, support and psychoeducation given. He is to be transferred to medicine of likely mild to moderate pancreatitis ( or some infection as his wbc also elevated) Vacuum Drier Tender will follow there. Medicine is on board and help appreciated Medication Change: No Medical Record Reviewed: Yes Mental Status Examination - Cognitive Function Orientation: Person, Place, Situation, Time Memory: Intact Attention: WNL Concentration: WNL Association: WNL Fund of Knowledge: WNL - Mood Mood: Neutral - Affect Affect: Other (Appropriate) - Speech Speech: Appropriate - Formal Thought Process Formal Thought Process: No Impairment - Suicidal Ideation Suicidal Ideation: No - Homicidal Ideation Homicidal Ideation: No Goal/Treatment Plan - Goal/Treatment Plan Need for Continued Stay: Remain at risks for inpatient hospitalization, Discharge may exacerbated symptoms, Severe functional impairment Progress Toward Problem(s) and Goals/Treatment Plan: Librium detox Gabapentin for augmentation As needed meds and vitamins Attend groups and activities [place] for abstinence and CBT for relapse prevention Support and psychoeducation Consider and encourage MAT Refer to after care Estimated Date of D/C: 04/24/17
[2017-04-23] MEDS: HYDROmorphone 0.5 mg/0.5 ml ISec IVP PRN ×2 (14:08→18:24)
--- NOTE | 2017-04-23 20:11 | CP.PCM.PN ---
<Sharon Harris - Last Filed: 04/23/17 20:08> Subjective - Date & Time of Evaluation Date of Evaluation: 04/23/17 Time of Evaluation: 20:08 - Subjective Subjective: Medicine Progress Note- Dr. Solano Service Patient was seen and examined at bedside in no acute distress. Patient states he has epigastric pain that radiates to the back. He also reports having a headache. Patient reports vomiting with every meal. Patient denies having a bowel movement yesterday, denies having chest pain, palpitations, diarrhea, tremors, and hallucinations. Objective - Vital Signs/Intake and Output Vital Signs (last 24 hours): Temp Pulse Resp BP Pulse Ox 97.8 F 60 20 121/74 96 04/23/17 16:30 04/23/17 16:30 04/23/17 16:30 04/23/17 16:30 04/23/17 16:30 - Medications Medications: Current Medications Chlordiazepoxide (Librium) 25 mg PO DAILY [facility] PRN Reason: Taper Stop: 04/24/17 11:59 Last Admin: 04/23/17 09:39 Dose: 25 mg Chlordiazepoxide (Librium) 25 mg PO Q4H PRN PRN Reason: Alcohol Withdrawal Clonidine HCl (Catapres) 0.1 mg PO Q4H PRN PRN Reason: Symptoms of alcohol withdrawl Famotidine (Pepcid) 20 mg PO BID [facility] Last Admin: 04/23/17 18:24 Dose: 20 mg Folic Acid (Folic Acid) 1 mg PO DAILY [facility] Last Admin: 04/23/17 10:25 Dose: Not Given Gabapentin (Neurontin) 300 mg PO BID [facility] Last Admin: 04/23/17 18:24 Dose: 300 mg Hydromorphone HCl (Dilaudid) 0.5 mg IVP Q4H PRN PRN Reason: Pain, moderate (4-7) Last Admin: 04/23/17 18:24 Dose: 0.5 mg Hydroxyzine HCl (Atarax) 50 mg PO Q6H PRN PRN Reason: Anxiety Last Admin: 04/20/17 22:02 Dose: 50 mg Lactated Ringer's (Lactated Ringer's) 1,000 mls @ 150 mls/hr IV .Q6H40M [facility] Last Admin: 04/23/17 17:58 Dose: 150 mls/hr Ibuprofen (Motrin Tab) 600 mg PO Q6H PRN PRN Reason: Pain, moderate (4-7) Ketorolac Tromethamine (Toradol) 30 mg IVP Q6 PRN PRN Reason: pain, mod Last Admin: 04/23/17 11:44 Dose: 30 mg Multivitamins (Hexavitamin) 1 tab PO DAILY [facility] Last Admin: 04/23/17 10:25 Dose: Not Given Ondansetron HCl (Zofran Odt) 8 mg PO Q8H PRN PRN Reason: Nausea/Vomiting Last Admin: 04/22/17 19:31 Dose: 8 mg Pantoprazole Sodium (Protonix Ec Tab) 20 mg PO DAILY [facility] Last Admin: 04/23/17 09:39 Dose: 20 mg Thiamine HCl (Vitamin B1 Tab) 100 mg PO DAILY [facility] Last Admin: 04/23/17 10:26 Dose: Not Given Trazodone HCl (Desyrel) 50 mg PO HS PRN PRN Reason: Insomnia Last Admin: 04/22/17 22:29 Dose: 50 mg - Labs Labs: 04/23/17 08:36 04/23/17 08:36 - Constitutional Appears: No Acute Distress - Head Exam Head Exam: NORMAL INSPECTION, NORMOCEPHALIC - Eye Exam Eye Exam: EOMI, Normal appearance - ENT Exam ENT Exam: Mucous Membranes Moist - Respiratory Exam Respiratory Exam: Clear to Ausculation Bilateral, NORMAL BREATHING PATTERN. absent: Rhonchi, Wheezes - Cardiovascular Exam Cardiovascular Exam: REGULAR RHYTHM, +S1, +S2. absent: Rubs, Murmur - GI/Abdominal Exam GI & Abdominal Exam: Soft, Tenderness (epigastric), Normal Bowel Sounds - Extremities Exam Extremities Exam: absent: Calf Tenderness, Pedal Edema, Tenderness - Neurological Exam Neurological Exam: Alert, Awake, Oriented x3 - Psychiatric Exam Psychiatric exam: Normal Affect, Normal Mood - Skin Skin Exam: Dry, Intact, Normal Color, Warm Assessment and Plan (1) Pancreatitis Assessment & Plan: Likely from alcohol abuse. Lipase elevated - 322- on 04/21/17. Lipase normalized - 222- on 04/22/17. Amylase 133 on 04/21/17 Amylase 139 on 04/22/17 NPO diet Counselled on alcohol cessation. Started on Pepcid 20mg PO Daily Abdomen/Pelvis CT without contrast: F/U Toradol 30mg IV Q6 PRN for pain Status: Acute (2) Alcohol abuse Assessment & Plan: Management as per psych team Status: Acute <Vicente oSlano H - Last Filed: 04/24/17 09:27> Objective - Vital Signs/Intake and Output Vital Signs (last 24 hours): Temp Pulse Resp BP Pulse Ox 98 F 79 20 129/75 95 04/24/17 08:08 04/24/17 08:08 04/24/17 08:08 04/24/17 08:08 04/24/17 08:08 Intake and Output: 04/24/17 04/24/17 06:59 18:59 Intake Total 1200 Balance 1200 - Medications Medications: Current Medications Chlordiazepoxide (Librium) 25 mg PO DAILY [facility] PRN Reason: Taper Stop: 04/24/17 11:59 Last Admin: 04/23/17 09:39 Dose: 25 mg Chlordiazepoxide (Librium) 25 mg PO Q4H PRN PRN Reason: Alcohol Withdrawal Clonidine HCl (Catapres) 0.1 mg PO Q4H PRN PRN Reason: Symptoms of alcohol withdrawl Famotidine (Pepcid) 20 mg PO BID [facility] Last Admin: 04/23/17 18:24 Dose: 20 mg Folic Acid (Folic Acid) 1 mg PO DAILY [facility] Last Admin: 04/23/17 10:25 Dose: Not Given Gabapentin (Neurontin) 300 mg PO BID [facility] Last Admin: 04/23/17 18:24 Dose: 300 mg Hydroxyzine HCl (Atarax) 50 mg PO Q6H PRN PRN Reason: Anxiety Last Admin: 04/20/17 22:02 Dose: 50 mg Lactated Ringer's (Lactated Ringer's) 1,000 mls @ 150 mls/hr IV .Q6H40M [facility] Last Admin: 04/24/17 07:31 Dose: 150 mls/hr Ibuprofen (Motrin Tab) 600 mg PO Q6H PRN PRN Reason: Pain, moderate (4-7) Ketorolac Tromethamine (Toradol) 30 mg IVP Q6 PRN PRN Reason: pain, mod Last Admin: 04/24/17 04:54 Dose: 30 mg Multivitamins (Hexavitamin) 1 tab PO DAILY [facility] Last Admin: 04/23/17 10:25 Dose: Not Given Ondansetron HCl (Zofran Odt) 8 mg PO Q8H PRN PRN Reason: Nausea/Vomiting Last Admin: 04/22/17 19:31 Dose: 8 mg Pantoprazole Sodium (Protonix Ec Tab) 20 mg PO DAILY [facility] Last Admin: 04/23/17 09:39 Dose: 20 mg Thiamine HCl (Vitamin B1 Tab) 100 mg PO DAILY [facility] Last Admin: 04/23/17 10:26 Dose: Not Given Trazodone HCl (Desyrel) 50 mg PO HS PRN PRN Reason: Insomnia Last Admin: 04/22/17 22:29 Dose: 50 mg - Labs Labs: 04/24/17 08:08 04/24/17 08:08 Attending/Attestation - Attestation I have personally seen and examined this patient.: Yes I have fully participated in the care of the patient.: Yes I have reviewed all pertinent clinical information, including history, physical exam and plan: Yes Notes (Text): 04/24/17 09:22 Medical attending: Patient was seen and examined by me, agree with the above note by manager of medical. The patient was seen and examined on [facility] [place] detox floor. Orders were previously placed in overnight to move the patient over to the medical floors due to continuous nausea vomiting as well as abdominal pain there was a lipase ordered this was low, we are going to order a CT scan of the abdomen and pelvis to assess for pancreatitis. Because the patient has not able to tolerate any by mouth liquids work and at [place] the patient on intravenous fluids, as well as IV pain medication. He's can continue to be nothing by mouth at this time set meds Thank you very much, were to follow the patient for withdrawals as well from the alcohol Vicente Solano
[2017-04-24] MEDS: Lactated Ringer's 1,000 ML IV SCH ×6 (03:14→22:49)
[2017-04-24 08:09] VITALS: RESP 20
[2017-04-24 08:17] LABS: BASO # 0.1 K/uL (0.0-0.2); BASO % 0.5 % (0.0-2.0); EOS # 0.2 K/uL (0.0-0.7); EOS % 1.6 % (0.0-4.0); HEMOGLOBIN 14.6 g/dL (12.0-18.0); LYMPH % 17.1 % (20.0-40.0); MEAN CELL VOLUME 86.3 fL (80.0-94.0); MEAN CORPUSCULAR HEMOGLOBIN 29.2 pg (27.0-31.0); MEAN CORPUSCULAR HGB CONC 33.8 g/dL (33.0-37.0); MEAN PLATELET VOLUME 8.8 fL (7.2-11.7); MONO # 1.2 K/uL (0.0-0.8); MONO % 10.5 % (0.0-10.0); NEUT % 70.3 % (50.0-75.0); RBC 5.01 Mil/uL (4.40-5.90); RED CELL DISTRIBUTION WIDTH 12.7 % (11.5-14.5); WHITE BLOOD COUNT 11.4 K/uL (4.8-10.8)
[2017-04-24 08:42] LABS: ALBUMIN 3.4 g/dL (3.5-5.0)
[2017-04-24 08:44] LABS: GFR AFRICAN-AMERICAN > 60; GFR NON-AFRICAN AMERICAN > 60
[2017-04-24 08:45] LABS: ALB/GLOB RATIO 1.1 (1.0-2.1); ALT/SGPT 47 U/L (21-72); AST/SGOT 41 U/L (17-59); BLOOD UREA NITROGEN 13 mg/dL (9-20); CALCIUM 8.9 mg/dl (8.6-10.4)
--- NOTE | 2017-04-24 09:48 | CP.PCM.PN ---
<Sharon Harris - Last Filed: 04/24/17 20:27> Subjective - Date & Time of Evaluation Date of Evaluation: 04/24/17 Time of Evaluation: 09:48 - Subjective Subjective: Medicine Progress Note: Dr. Solnao's Service Patient is seen and examined at bedside in no acute distress. Patient reports still having abdominal pain in the epigastric region that radiates to his back. Patient also reports having a non-productive cough. Patient denies having a bowel movement for 2 days, denies chest pain, shortness of breath, headache, nausea, vomiting, diarrhea, hallucinations and tremors. Objective - Vital Signs/Intake and Output Vital Signs (last 24 hours): Temp Pulse Resp BP Pulse Ox 98 F 79 20 129/75 95 04/24/17 08:08 04/24/17 08:08 04/24/17 08:08 04/24/17 08:08 04/24/17 08:08 Intake and Output: 04/24/17 04/24/17 06:59 18:59 Intake Total 1200 Balance 1200 - Medications Medications: Current Medications Chlordiazepoxide (Librium) 25 mg PO DAILY [facility] PRN Reason: Taper Stop: 04/24/17 11:59 Last Admin: 04/23/17 09:39 Dose: 25 mg Chlordiazepoxide (Librium) 25 mg PO Q4H PRN PRN Reason: Alcohol Withdrawal Clonidine HCl (Catapres) 0.1 mg PO Q4H PRN PRN Reason: Symptoms of alcohol withdrawl Famotidine (Pepcid) 20 mg PO BID [facility] Last Admin: 04/23/17 18:24 Dose: 20 mg Folic Acid (Folic Acid) 1 mg PO DAILY [facility] Last Admin: 04/23/17 10:25 Dose: Not Given Gabapentin (Neurontin) 300 mg PO BID [facility] Last Admin: 04/23/17 18:24 Dose: 300 mg Hydroxyzine HCl (Atarax) 50 mg PO Q6H PRN PRN Reason: Anxiety Last Admin: 04/20/17 22:02 Dose: 50 mg Lactated Ringer's (Lactated Ringer's) 1,000 mls @ 150 mls/hr IV .Q6H40M [facility] Last Admin: 04/24/17 07:31 Dose: 150 mls/hr Ibuprofen (Motrin Tab) 600 mg PO Q6H PRN PRN Reason: Pain, moderate (4-7) Ketorolac Tromethamine (Toradol) 30 mg IVP Q6 PRN PRN Reason: pain, mod Last Admin: 04/24/17 04:54 Dose: 30 mg Multivitamins (Hexavitamin) 1 tab PO DAILY [facility] Last Admin: 04/23/17 10:25 Dose: Not Given Ondansetron HCl (Zofran Odt) 8 mg PO Q8H PRN PRN Reason: Nausea/Vomiting Last Admin: 04/22/17 19:31 Dose: 8 mg Pantoprazole Sodium (Protonix Ec Tab) 20 mg PO DAILY [facility] Last Admin: 04/23/17 09:39 Dose: 20 mg Thiamine HCl (Vitamin B1 Tab) 100 mg PO DAILY [facility] Last Admin: 04/23/17 10:26 Dose: Not Given Trazodone HCl (Desyrel) 50 mg PO HS PRN PRN Reason: Insomnia Last Admin: 04/22/17 22:29 Dose: 50 mg - Labs Labs: 04/24/17 08:08 04/24/17 08:08 - Constitutional Appears: No Acute Distress - Head Exam Head Exam: NORMAL INSPECTION, NORMOCEPHALIC - Eye Exam Eye Exam: EOMI, Normal appearance - ENT Exam ENT Exam: Mucous Membranes Moist - Neck Exam Neck Exam: Full ROM, Normal Inspection - Respiratory Exam Respiratory Exam: Decreased Breath Sounds, Rhonchi, NORMAL BREATHING PATTERN - Cardiovascular Exam Cardiovascular Exam: REGULAR RHYTHM, +S1, +S2. absent: Rubs, Murmur - GI/Abdominal Exam GI & Abdominal Exam: Soft, Tenderness, Normal Bowel Sounds - Extremities Exam Extremities Exam: absent: Calf Tenderness, Pedal Edema, Tenderness - Neurological Exam Neurological Exam: Alert, Awake, Oriented x3 - Psychiatric Exam Psychiatric exam: Normal Affect, Normal Mood - Skin Skin Exam: Dry, Intact, Normal Color, Warm Assessment and Plan (1) Pancreatitis Assessment & Plan: Likely from alcohol abuse. Lipase elevated - 322- on 04/21/17. Lipase normalized - 222- on 04/22/17. Amylase 133 on 04/21/17 Amylase 139 on 04/22/17 NPO diet Counselled on alcohol cessation. Started on Pepcid 20mg PO Daily Toradol 30mg IV Q6 PRN for pain Abdominal/Pelvic CT: no CT pattern that would suggest pancreatitis as this time , although clinical pancreatitis is not excluded. further clinical correlation is advised. signs suspicious for right-sides nephritis of indeterminate etiology. no obstructive uropathy as this time. punctate intrarenal calculi by upper pole right kidney. no hydronephrosis or hydroureter. trace pelvic ascites. Status: Acute (2) Alcohol abuse Assessment & Plan: Management as per psych team. Status: Acute <SolanoVicente rock H - Last Filed: 04/25/17 07:08> Objective - Vital Signs/Intake and Output Vital Signs (last 24 hours): Temp Pulse Resp BP Pulse Ox 97.8 F 65 20 149/86 94 L 04/25/17 00:00 04/25/17 00:00 04/25/17 00:00 04/25/17 00:00 04/25/17 00:00 - Medications Medications: Current Medications Chlordiazepoxide (Librium) 25 mg PO Q4H PRN PRN Reason: Alcohol Withdrawal Clonidine HCl (Catapres) 0.1 mg PO Q4H PRN PRN Reason: Symptoms of alcohol withdrawl Famotidine (Pepcid) 20 mg PO BID [facility] Last Admin: 04/24/17 17:27 Dose: 20 mg Folic Acid (Folic Acid) 1 mg PO DAILY [facility] Last Admin: 04/24/17 10:09 Dose: 1 mg Gabapentin (Neurontin) 300 mg PO BID [facility] Last Admin: 04/24/17 17:27 Dose: 300 mg Hydroxyzine HCl (Atarax) 50 mg PO Q6H PRN PRN Reason: Anxiety Last Admin: 04/20/17 22:02 Dose: 50 mg Lactated Ringer's (Lactated Ringer's) 1,000 mls @ 150 mls/hr IV .Q6H40M [facility] Last Admin: 04/25/17 04:46 Dose: Not Given Ibuprofen (Motrin Tab) 600 mg PO Q6H PRN PRN Reason: Pain, moderate (4-7) Ketorolac Tromethamine (Toradol) 30 mg IVP Q6 PRN PRN Reason: pain, mod Last Admin: 04/25/17 01:15 Dose: 30 mg Multivitamins (Hexavitamin) 1 tab PO DAILY [facility] Last Admin: 04/24/17 10:09 Dose: 1 tab Ondansetron HCl (Zofran Odt) 8 mg PO Q8H PRN PRN Reason: Nausea/Vomiting Last Admin: 04/22/17 19:31 Dose: 8 mg Pantoprazole Sodium (Protonix Ec Tab) 20 mg PO DAILY [facility] Last Admin: 04/24/17 10:09 Dose: 20 mg Thiamine HCl (Vitamin B1 Tab) 100 mg PO DAILY [facility] Last Admin: 04/24/17 10:08 Dose: 100 mg Trazodone HCl (Desyrel) 50 mg PO HS PRN PRN Reason: Insomnia Last Admin: 04/22/17 22:29 Dose: 50 mg - Labs Labs: 04/24/17 08:08 04/24/17 08:08 Attending/Attestation - Attestation I have personally seen and examined this patient.: Yes I have fully participated in the care of the patient.: Yes I have reviewed all pertinent clinical information, including history, physical exam and plan: Yes Notes (Text): Medical attending: Patient was seen and examined by me, agrees the above note by medical device engineer. The patient had not yet had a CAT scan of the abdomen and pelvis after use transfer over from [facility] detox. When we spoke with him he said that the pain was better controlled. Will continue with intravenous fluids as well. Explained to us that he did not feel ready to try any food yet. We'll see how he does the following day In the meantime were still can try to get this CAT scan He's almost completed the alcohol withdrawal protocol with PO Librium. On physical exam he was not having any shakes or tremors. He also denied having any nausea or vomiting. thank you Vicente Solano
[2017-04-24] MEDS: Pantoprazole 20 mg EC Tab PO SCH (10:09)
[2017-04-24] MEDS: Multiple Vitamins Tab PO SCH (10:09)
--- NOTE | 2017-04-24 14:57 | CT ---
PROCEDURE: CT Abdomen and Pelvis without intravenous contrast HISTORY: abdominal pain, r/o pancreatitis COMPARISON: None. TECHNIQUE: Technique. Contrast Dose: 0 cc Radiation dose: Total exam DLP = 852 mGy-cm. This CT exam was performed using one or more of the following dose reduction techniques: Automated exposure control, adjustment of the mA and/or kV according to patient size, and/or use of iterative reconstruction technique. FINDINGS: LOWER THORAX: Linear atelectasis is seen at the right lung base as well as minimally at the left side. LIVER: Unremarkable. No gross lesion or ductal dilatation. GALLBLADDER AND BILE DUCTS: Gallbladder appears distended but without radiodense cholelithiasis. No pericholecystic fluid collection or reaction is appreciated. . PANCREAS: Unremarkable. No gross lesion or ductal dilatation. No peripancreatic reaction fluid collections appreciable this time. This does not exclude the clinical diagnosis of pancreatitis and further clinical correlation is advised. SPLEEN: Unremarkable. ADRENALS: Unremarkable. No mass. KIDNEYS AND URETERS: Limited right perinephric reaction decreased without hydronephrosis. A punctate intrarenal calculus or metacarpal right kidney. No obstructive uropathy identified however consider possible right-sided nephritis. Trace fluid is seen in the pelvis. The left kidney appears unremarkable. VASCULATURE: Unremarkable. No aortic aneurysm. BOWEL: Unremarkable. No obstruction. No gross mural thickening. APPENDIX: Unremarkable. Normal appendix. PERITONEUM: Unremarkable. Trace pelvic ascites is encountered. No free air. LYMPH NODES: Unremarkable. No enlarged lymph nodes. BLADDER: Unremarkable. REPRODUCTIVE: Unremarkable. BONES: Mild multilevel thoracic spondylosis incidentally noted. . OTHER FINDINGS: None. IMPRESSION: No CT pattern that would suggest pancreatitis at this time although clinical pancreatitis is not excluded. Further clinical correlation is advised. The lack of intravenous and oral contrast agents limits the examination. Signs suspicious for right-sided nephritis of indeterminate etiology. No obstructive uropathy at this time. The punctate intrarenal calculi by the upper pole right kidney. No hydronephrosis or hydroureter. Trace pelvic ascites encounter.
--- NOTE | 2017-04-25 00:56 | PCM.PYCHPN ---
Psychiatric Progress Note - Psychiatric Progress Note Patient seen today, length of contact: 15 minutes Patient Chief Complaint: "I'm not well yet" Problems Identified/Issues Discussed: The pt is seen, chart reviewed, case discussed with staff. Consultation was requested for follow up as he is now transferred to medicine with pancreatitis He is improving but is still NPO and has pain Wdw is under control Support given Medication Change: No Medical Record Reviewed: Yes Mental Status Examination - Cognitive Function Orientation: Person, Place, Situation, Time Memory: Intact Attention: WNL Concentration: WNL Association: WNL Fund of Knowledge: WNL - Mood Mood: Neutral - Affect Affect: Other (Appropriate) - Speech Speech: Appropriate - Formal Thought Process Formal Thought Process: No Impairment - Suicidal Ideation Suicidal Ideation: No - Homicidal Ideation Homicidal Ideation: No Goal/Treatment Plan - Goal/Treatment Plan Need for Continued Stay: Discharge may exacerbated symptoms Progress Toward Problem(s) and Goals/Treatment Plan: Librium detox Gabapentin for augmentation As needed meds and vitamins Attend groups and activities [place] for abstinence and CBT for relapse prevention Support and psychoeducation Consider and encourage MAT Refer to after care
[2017-04-25] MEDS: Lactated Ringer's 1,000 ML IV SCH ×4 (03:51→18:34)
--- NOTE | 2017-04-25 07:30 | CP.PCM.PN ---
<Sharon Harris - Last Filed: 04/25/17 18:43> Subjective - Date & Time of Evaluation Date of Evaluation: 04/25/17 Time of Evaluation: 07:26 - Subjective Subjective: Medicine Progress Note- Dr. Solano's Service Patient was seen and examined at bedside in no acute distress. Patient was resting comfortably in bed. He reports feeling better today but still has abdominal pain that radiates to his back. The abdominal pain has improved mildly. He states he has developed a cough since being admitted and has had occasional sweats. Patient reports he has not had a bowel movement in 5 days. Patient is able to walk without difficulty, however, he reports he sometimes feels dizzy, so he "sits and takes his time". Patient reports hes sleeping well. Patient denies chest pain, palpitations, nausea, vomiting, diarrhea, hallucinations, and tremors. Objective - Vital Signs/Intake and Output Vital Signs (last 24 hours): Temp Pulse Resp BP Pulse Ox 97.8 F 65 20 149/86 94 L 04/25/17 00:00 04/25/17 00:00 04/25/17 00:00 04/25/17 00:00 04/25/17 00:00 - Medications Medications: Current Medications Chlordiazepoxide (Librium) 25 mg PO Q4H PRN PRN Reason: Alcohol Withdrawal Clonidine HCl (Catapres) 0.1 mg PO Q4H PRN PRN Reason: Symptoms of alcohol withdrawl Famotidine (Pepcid) 20 mg PO BID [facility] Last Admin: 04/24/17 17:27 Dose: 20 mg Folic Acid (Folic Acid) 1 mg PO DAILY [facility] Last Admin: 04/24/17 10:09 Dose: 1 mg Gabapentin (Neurontin) 300 mg PO BID [facility] Last Admin: 04/24/17 17:27 Dose: 300 mg Hydroxyzine HCl (Atarax) 50 mg PO Q6H PRN PRN Reason: Anxiety Last Admin: 04/20/17 22:02 Dose: 50 mg Lactated Ringer's (Lactated Ringer's) 1,000 mls @ 150 mls/hr IV .Q6H40M [facility] Last Admin: 04/25/17 04:46 Dose: Not Given Ibuprofen (Motrin Tab) 600 mg PO Q6H PRN PRN Reason: Pain, moderate (4-7) Ketorolac Tromethamine (Toradol) 30 mg IVP Q6 PRN PRN Reason: pain, mod Last Admin: 04/25/17 07:17 Dose: 30 mg Multivitamins (Hexavitamin) 1 tab PO DAILY [facility] Last Admin: 04/24/17 10:09 Dose: 1 tab Ondansetron HCl (Zofran Odt) 8 mg PO Q8H PRN PRN Reason: Nausea/Vomiting Last Admin: 04/22/17 19:31 Dose: 8 mg Pantoprazole Sodium (Protonix Ec Tab) 20 mg PO DAILY [facility] Last Admin: 04/24/17 10:09 Dose: 20 mg Thiamine HCl (Vitamin B1 Tab) 100 mg PO DAILY [facility] Last Admin: 04/24/17 10:08 Dose: 100 mg Trazodone HCl (Desyrel) 50 mg PO HS PRN PRN Reason: Insomnia Last Admin: 04/22/17 22:29 Dose: 50 mg - Labs Labs: 04/24/17 08:08 04/24/17 08:08 - Constitutional Appears: No Acute Distress - Head Exam Head Exam: NORMAL INSPECTION, NORMOCEPHALIC - Eye Exam Eye Exam: EOMI, Normal appearance - ENT Exam ENT Exam: Mucous Membranes Moist - Neck Exam Neck Exam: Normal Inspection - Respiratory Exam Respiratory Exam: Rhonchi, NORMAL BREATHING PATTERN. absent: Clear to Ausculation Bilateral - Cardiovascular Exam Cardiovascular Exam: REGULAR RHYTHM, +S1, +S2. absent: Rubs, Murmur - GI/Abdominal Exam GI & Abdominal Exam: Soft, Tenderness, Normal Bowel Sounds - Extremities Exam Extremities Exam: Normal Inspection. absent: Calf Tenderness, Pedal Edema, Tenderness - Neurological Exam Neurological Exam: Alert, Awake, Oriented x3 - Psychiatric Exam Psychiatric exam: Normal Affect, Normal Mood - Skin Skin Exam: Dry, Intact, Normal Color, Warm Assessment and Plan (1) Pancreatitis Assessment & Plan: Lipase elevated - 322- on 04/21/17. Lipase normalized - 222- on 04/22/17. Amylase 133 on 04/21/17 Amylase 139 on 04/22/17 NPO diet--> discontinued on 04/25/17 advancing to clear liquid diet on 04/25/17; monitor if patient can tolerate Counselled on alcohol cessation. Started on Pepcid 20mg PO Daily Toradol 30mg IV Q6 PRN for pain Abdominal/Pelvic CT (04/23/17): no CT pattern that would suggest pancreatitis as this time, although clinical pancreatitis is not excluded. further clinical correlation is advised. signs suspicious for right-sides nephritis of indeterminate etiology. no obstructive uropathy as this time. punctate intrarenal calculi by upper pole right kidney. no hydronephrosis or hydroureter. trace pelvic ascites. Status: Acute (2) Alcohol abuse Assessment & Plan: Management as per psych team. Status: Acute (3) Cough Assessment & Plan: Chest xray on 04/25/17: no acute cardiopulmonary disease Status: Acute <Vicente Solano H - Last Filed: 04/25/17 18:51> Objective - Vital Signs/Intake and Output Vital Signs (last 24 hours): Temp Pulse Resp BP Pulse Ox 97.9 F 64 20 114/73 95 04/25/17 15:00 04/25/17 15:00 04/25/17 15:00 04/25/17 15:00 04/25/17 15:00 Intake and Output: 04/25/17 04/25/17 06:59 18:59 Intake Total 750 Balance 750 - Medications Medications: Current Medications Chlordiazepoxide (Librium) 25 mg PO Q4H PRN PRN Reason: Alcohol Withdrawal Clonidine HCl (Catapres) 0.1 mg PO Q4H PRN PRN Reason: Symptoms of alcohol withdrawl Famotidine (Pepcid) 20 mg PO BID [facility] Last Admin: 04/25/17 18:34 Dose: 20 mg Folic Acid (Folic Acid) 1 mg PO DAILY [facility] Last Admin: 04/25/17 10:01 Dose: 1 mg Gabapentin (Neurontin) 300 mg PO BID [facility] Last Admin: 04/25/17 18:33 Dose: 300 mg Hydroxyzine HCl (Atarax) 50 mg PO Q6H PRN PRN Reason: Anxiety Last Admin: 04/20/17 22:02 Dose: 50 mg Lactated Ringer's (Lactated Ringer's) 1,000 mls @ 150 mls/hr IV .Q6H40M [facility] Last Admin: 04/25/17 18:34 Dose: 150 mls/hr Ibuprofen (Motrin Tab) 600 mg PO Q6H PRN PRN Reason: Pain, moderate (4-7) Ketorolac Tromethamine (Toradol) 30 mg IVP Q6 PRN PRN Reason: pain, mod Last Admin: 04/25/17 13:58 Dose: 30 mg Multivitamins (Hexavitamin) 1 tab PO DAILY [facility] Last Admin: 04/25/17 10:01 Dose: 1 tab Ondansetron HCl (Zofran Odt) 8 mg PO Q8H PRN PRN Reason: Nausea/Vomiting Last Admin: 04/22/17 19:31 Dose: 8 mg Pantoprazole Sodium (Protonix Ec Tab) 20 mg PO DAILY [facility] Last Admin: 04/25/17 10:01 Dose: 20 mg Thiamine HCl (Vitamin B1 Tab) 100 mg PO DAILY [facility] Last Admin: 04/25/17 10:01 Dose: 100 mg Trazodone HCl (Desyrel) 50 mg PO HS PRN PRN Reason: Insomnia Last Admin: 04/22/17 22:29 Dose: 50 mg - Labs Labs: 04/25/17 07:14 04/25/17 07:14 Attending/Attestation - Attestation I have personally seen and examined this patient.: Yes I have fully participated in the care of the patient.: Yes I have reviewed all pertinent clinical information, including history, physical exam and plan: Yes Notes (Text): 04/25/17 18:49 Medical Attending: Patient was seen and examined by me. Agree with the above note by the resident. The patient reported less pain today, also will try a liquid diet as well. We explained to him to try the diet slowy. In the mean time he is off of alcohol withdrawl protocol medication now. Still has PRN On exam he was not in any acute distress, no shaking or tremors thank you Vicente Solano
[2017-04-25 07:47] LABS: BASO # 0.1 K/uL (0.0-0.2); BASO % 0.7 % (0.0-2.0); EOS # 0.2 K/uL (0.0-0.7); EOS % 1.7 % (0.0-4.0); HEMOGLOBIN 14.7 g/dL (12.0-18.0); LYMPH # 2.1 K/uL (1.0-4.3); LYMPH % 20.2 % (20.0-40.0); MEAN CELL VOLUME 85.2 fL (80.0-94.0); MEAN CORPUSCULAR HEMOGLOBIN 29.3 pg (27.0-31.0); MEAN CORPUSCULAR HGB CONC 34.4 g/dL (33.0-37.0); MEAN PLATELET VOLUME 8.9 fL (7.2-11.7); MONO # 1.2 K/uL (0.0-0.8); MONO % 11.1 % (0.0-10.0); NEUT # 6.9 K/uL (1.8-7.0); NEUT % 66.3 % (50.0-75.0); NRBC % 0.1 % (0.0-2.0); RBC 5.01 Mil/uL (4.40-5.90); RED CELL DISTRIBUTION WIDTH 12.5 % (11.5-14.5); WHITE BLOOD COUNT 10.4 K/uL (4.8-10.8)
[2017-04-25 07:50] LABS: ALBUMIN 3.2 g/dL (3.5-5.0)
[2017-04-25 07:53] LABS: AST/SGOT 52 U/L (17-59); GFR AFRICAN-AMERICAN > 60; GFR NON-AFRICAN AMERICAN > 60
[2017-04-25 07:54] LABS: ALB/GLOB RATIO 1.1 (1.0-2.1); ALT/SGPT 53 U/L (21-72); BLOOD UREA NITROGEN 11 mg/dL (9-20); CALCIUM 8.8 mg/dl (8.6-10.4)
[2017-04-25] MEDS: Multiple Vitamins Tab PO SCH (10:01)
[2017-04-25] MEDS: Pantoprazole 20 mg EC Tab PO SCH (10:01)
[2017-04-25 13:18] LABS: URINE BILIRUBIN NEGATIVE (NEGATIVE); URINE BLOOD NEGATIVE (NEGATIVE); URINE CLARITY Clear (Clear); URINE COLOR Straw (YELLOW); URINE GLUCOSE (UA) NORMAL (Normal); URINE LEUKOCYTE ESTERASE NEG Leu/uL (Negative); URINE NITRATE NEGATIVE (NEGATIVE); URINE PROTEIN NEGATIVE (NEGATIVE); URINE UROBILINOGEN NORMAL mg/dL (0.2-1.0)
--- NOTE | 2017-04-25 13:51 | PCM.PYCHPN ---
Psychiatric Progress Note - Psychiatric Progress Note Patient seen today, length of contact: 15 minutes Patient Chief Complaint: "I am feeling okay but I am very hungry." Problems Identified/Issues Discussed: The pt is seen, chart reviewed, case discussed with staff. He is improving and can now consume liquids only. Patient still has pain. Wdw is under control After care discussed, support and psychoeducation given. Our counselor will still try to refer him to [facility] but he needs to be able to walk, eat and function wel first, as it is a work rehab. He knows. Medication Change: No Medical Record Reviewed: Yes Mental Status Examination - Cognitive Function Orientation: Person, Place, Situation, Time Memory: Intact Attention: WNL Concentration: WNL Association: [facility] Fund of Knowledge: WN - Mood Mood: Neutral - Affect Affect: Other (Appropriate) - Speech Speech: Appropriate - Formal Thought Process Formal Thought Process: No Impairment - Suicidal Ideation Suicidal Ideation: No - Homicidal Ideation Homicidal Ideation: No Goal/Treatment Plan - Goal/Treatment Plan Need for Continued Stay: Other (pancreatitis) Progress Toward Problem(s) and Goals/Treatment Plan: Librium detox Gabapentin for augmentation As needed meds and vitamins [place] for abstinence and CBT for relapse prevention Support and psychoeducation Consider and encourage MAT Refer to after care [facility]
--- NOTE | 2017-04-25 14:04 | RAD ---
HISTORY: new onset cough COMPARISON: Comparison chest dated 02/01/2017. Comparison also made with CT scan of the abdomen and pelvis 04/24/2017 which partially imaged both lung bases. TECHNIQUE: Chest PA and lateral FINDINGS: LUNGS: No active pulmonary disease. PLEURA: No significant pleural effusion identified. No pneumothorax apparent. CARDIOVASCULAR: Normal. OSSEOUS STRUCTURES: Minimal degenerative spondylosis of the thoracic spine VISUALIZED UPPER ABDOMEN: Normal. OTHER FINDINGS: None. IMPRESSION: No acute cardiopulmonary disease.
[2017-04-26] MEDS: Lactated Ringer's 1,000 ML IV SCH ×5 (02:59→22:18)
[2017-04-26 08:24] LABS: BASO # 0.1 K/uL (0.0-0.2); BASO % 0.8 % (0.0-2.0); EOS # 0.2 K/uL (0.0-0.7); HEMOGLOBIN 14.5 g/dL (12.0-18.0); LYMPH % 25.4 % (20.0-40.0); MEAN CELL VOLUME 86.6 fL (80.0-94.0); MEAN CORPUSCULAR HEMOGLOBIN 28.8 pg (27.0-31.0); MEAN CORPUSCULAR HGB CONC 33.2 g/dL (33.0-37.0); MONO # 0.9 K/uL (0.0-0.8); MONO % 11.3 % (0.0-10.0); NEUT # 4.7 K/uL (1.8-7.0); NEUT % 59.5 % (50.0-75.0); NRBC % 0.3 % (0.0-2.0); RBC 5.04 Mil/uL (4.40-5.90); RED CELL DISTRIBUTION WIDTH 12.8 % (11.5-14.5); WHITE BLOOD COUNT 7.9 K/uL (4.8-10.8)
[2017-04-26 08:31] LABS: ALBUMIN 3.3 g/dL (3.5-5.0)
[2017-04-26 08:34] LABS: ALT/SGPT 56 U/L (21-72); AST/SGOT 53 U/L (17-59); BLOOD UREA NITROGEN 6 mg/dL (9-20); GFR AFRICAN-AMERICAN > 60; GFR NON-AFRICAN AMERICAN > 60
[2017-04-26 08:35] LABS: CALCIUM 8.9 mg/dl (8.6-10.4)
[2017-04-26] MEDS: Pantoprazole 20 mg EC Tab PO SCH (09:02)
[2017-04-26] MEDS: Multiple Vitamins Tab PO SCH (09:02)
--- NOTE | 2017-04-26 17:05 | CP.PCM.PN ---
<Sharon Harris - Last Filed: 04/26/17 16:59> Subjective - Date & Time of Evaluation Date of Evaluation: 04/26/17 Time of Evaluation: 16:59 - Subjective Subjective: Medicine Progress Note- Dr. Solano's Service Patient was seen and examined at bedside. Patient was resting comfortably in bed and in no acute distress. Patient reports he is tolerating his liquid diet, but had two episodes of regurgitation. Patient reports still having abdominal/ epigastric pain but has improved. He states he sometimes have a headache and nonproductive cough. Patient denies chest pain, palpitations, leg pain and swelling, dizziness, nausea, and vomiting. Objective - Vital Signs/Intake and Output Vital Signs (last 24 hours): Temp Pulse Resp BP Pulse Ox 97.1 F L 45 L 20 117/67 98 04/26/17 08:00 04/26/17 08:00 04/26/17 08:00 04/26/17 08:00 04/26/17 08:00 Intake and Output: 04/26/17 04/26/17 06:59 18:59 Intake Total 300 1560 Output Total 600 Balance -300 1560 - Medications Medications: Current Medications Chlordiazepoxide (Librium) 25 mg PO Q4H PRN PRN Reason: Alcohol Withdrawal Clonidine HCl (Catapres) 0.1 mg PO Q4H PRN PRN Reason: Symptoms of alcohol withdrawl Famotidine (Pepcid) 20 mg PO BID [facility] Last Admin: 04/26/17 09:02 Dose: 20 mg Folic Acid (Folic Acid) 1 mg PO DAILY [facility] Last Admin: 04/26/17 09:02 Dose: 1 mg Gabapentin (Neurontin) 300 mg PO BID [facility] Last Admin: 04/26/17 09:02 Dose: 300 mg Hydroxyzine HCl (Atarax) 50 mg PO Q6H PRN PRN Reason: Anxiety Last Admin: 04/20/17 22:02 Dose: 50 mg Lactated Ringer's (Lactated Ringer's) 1,000 mls @ 150 mls/hr IV .Q6H40M [facility] Last Admin: 04/26/17 14:56 Dose: 150 mls/hr Ibuprofen (Motrin Tab) 600 mg PO Q6H PRN PRN Reason: Pain, moderate (4-7) Ketorolac Tromethamine (Toradol) 30 mg IVP Q6 PRN PRN Reason: pain, mod Last Admin: 04/26/17 14:58 Dose: 30 mg Multivitamins (Hexavitamin) 1 tab PO DAILY [facility] Last Admin: 04/26/17 09:02 Dose: 1 tab Ondansetron HCl (Zofran Odt) 8 mg PO Q8H PRN PRN Reason: Nausea/Vomiting Last Admin: 04/26/17 09:03 Dose: 8 mg Pantoprazole Sodium (Protonix Ec Tab) 20 mg PO DAILY [facility] Last Admin: 04/26/17 09:02 Dose: 20 mg Thiamine HCl (Vitamin B1 Tab) 100 mg PO DAILY [facility] Last Admin: 04/26/17 09:03 Dose: 100 mg Trazodone HCl (Desyrel) 50 mg PO HS PRN PRN Reason: Insomnia Last Admin: 04/22/17 22:29 Dose: 50 mg - Labs Labs: 04/26/17 08:16 04/26/17 08:16 - Constitutional Appears: No Acute Distress - Head Exam Head Exam: NORMAL INSPECTION, NORMOCEPHALIC - Eye Exam Eye Exam: EOMI, Normal appearance - ENT Exam ENT Exam: Mucous Membranes Moist - Neck Exam Neck Exam: Full ROM, Normal Inspection - Respiratory Exam Respiratory Exam: Clear to Ausculation Bilateral, NORMAL BREATHING PATTERN. absent: Rhonchi, Wheezes - Cardiovascular Exam Cardiovascular Exam: REGULAR RHYTHM, +S1, +S2 - GI/Abdominal Exam GI & Abdominal Exam: Soft, Tenderness (epigastric), Normal Bowel Sounds - Extremities Exam Extremities Exam: Normal Inspection. absent: Calf Tenderness, Pedal Edema, Tenderness - Neurological Exam Neurological Exam: Alert, Awake, Oriented x3 - Psychiatric Exam Psychiatric exam: Normal Affect, Normal Mood - Skin Skin Exam: Dry, Intact, Normal Color, Warm Assessment and Plan (1) Pancreatitis Assessment & Plan: Lipase elevated - 322- on 04/21/17. Lipase normalized - 222- on 04/22/17. Amylase 133 on 04/21/17 Amylase 139 on 04/22/17 NPO diet--> discontinued on 04/25/17 advancing to clear liquid diet on 04/25/17; monitor if patient can tolerate Advanced to puree diet on 04/26/17--> monitor if patient can tolerate Counselled on alcohol cessation. Started on Pepcid 20mg PO Daily Toradol 30mg IV Q6 PRN for pain Abdominal/Pelvic CT (04/23/17): no CT pattern that would suggest pancreatitis as this time, although clinical pancreatitis is not excluded. further clinical correlation is advised. signs suspicious for right-sides nephritis of indeterminate etiology. no obstructive uropathy as this time. punctate intrarenal calculi by upper pole right kidney. no hydronephrosis or hydroureter. trace pelvic ascites. Status: Acute (2) Alcohol abuse Assessment & Plan: Management as per psych team. Status: Acute (3) Cough Assessment & Plan: Chest xray on 04/25/17: no acute cardiopulmonary disease Status: Acute <Vicente Solano H - Last Filed: 04/26/17 18:08> Objective - Vital Signs/Intake and Output Vital Signs (last 24 hours): Temp Pulse Resp BP Pulse Ox 98.0 F 52 L 20 121/77 96 04/26/17 15:00 04/26/17 15:00 04/26/17 15:00 04/26/17 15:00 04/26/17 15:00 Intake and Output: 04/26/17 04/26/17 06:59 18:59 Intake Total 300 1560 Output Total 600 Balance -300 1560 - Medications Medications: Current Medications Chlordiazepoxide (Librium) 25 mg PO Q4H PRN PRN Reason: Alcohol Withdrawal Clonidine HCl (Catapres) 0.1 mg PO Q4H PRN PRN Reason: Symptoms of alcohol withdrawl Famotidine (Pepcid) 20 mg PO BID [facility] Last Admin: 04/26/17 17:50 Dose: 20 mg Folic Acid (Folic Acid) 1 mg PO DAILY [facility] Last Admin: 04/26/17 09:02 Dose: 1 mg Gabapentin (Neurontin) 300 mg PO BID [facility] Last Admin: 04/26/17 17:50 Dose: 300 mg Hydroxyzine HCl (Atarax) 50 mg PO Q6H PRN PRN Reason: Anxiety Last Admin: 04/20/17 22:02 Dose: 50 mg Lactated Ringer's (Lactated Ringer's) 1,000 mls @ 150 mls/hr IV .Q6H40M [facility] Last Admin: 04/26/17 14:56 Dose: 150 mls/hr Ibuprofen (Motrin Tab) 600 mg PO Q6H PRN PRN Reason: Pain, moderate (4-7) Ketorolac Tromethamine (Toradol) 30 mg IVP Q6 PRN PRN Reason: pain, mod Last Admin: 04/26/17 14:58 Dose: 30 mg Multivitamins (Hexavitamin) 1 tab PO DAILY [facility] Last Admin: 04/26/17 09:02 Dose: 1 tab Ondansetron HCl (Zofran Odt) 8 mg PO Q8H PRN PRN Reason: Nausea/Vomiting Last Admin: 04/26/17 09:03 Dose: 8 mg Pantoprazole Sodium (Protonix Ec Tab) 20 mg PO DAILY [facility] Last Admin: 04/26/17 09:02 Dose: 20 mg Thiamine HCl (Vitamin B1 Tab) 100 mg PO DAILY [facility] Last Admin: 04/26/17 09:03 Dose: 100 mg Trazodone HCl (Desyrel) 50 mg PO HS PRN PRN Reason: Insomnia Last Admin: 04/22/17 22:29 Dose: 50 mg - Labs Labs: 04/26/17 08:16 04/26/17 08:16 Attending/Attestation - Attestation I have personally seen and examined this patient.: Yes I have fully participated in the care of the patient.: Yes I have reviewed all pertinent clinical information, including history, physical exam and plan: Yes Notes (Text): 04/26/17 17:59 Medical Attending: Patient was seen and examined by me. Agree with the above note by the resident. The patient was reporting tolerated the liquid diet. He did not seem to have any alcohol withdrawl symptoms when we saw him and discussed with him Continue with the IVF, the patient will probably be DC tommorow. thank you Vicente Solano
[2017-04-27 06:45] LABS: BASO # 0.1 K/uL (0.0-0.2); BASO % 0.8 % (0.0-2.0); EOS # 0.2 K/uL (0.0-0.7); EOS % 2.7 % (0.0-4.0); HEMOGLOBIN 13.5 g/dL (12.0-18.0); LYMPH # 2.5 K/uL (1.0-4.3); LYMPH % 28.1 % (20.0-40.0); MEAN CELL VOLUME 85.9 fL (80.0-94.0); MEAN CORPUSCULAR HEMOGLOBIN 28.9 pg (27.0-31.0); MEAN CORPUSCULAR HGB CONC 33.7 g/dL (33.0-37.0); MEAN PLATELET VOLUME 9.2 fL (7.2-11.7); MONO # 0.9 K/uL (0.0-0.8); MONO % 10.6 % (0.0-10.0); NEUT # 5.1 K/uL (1.8-7.0); NEUT % 57.8 % (50.0-75.0); NRBC % 0.1 % (0.0-2.0); RBC 4.68 Mil/uL (4.40-5.90); RED CELL DISTRIBUTION WIDTH 12.8 % (11.5-14.5); WHITE BLOOD COUNT 8.9 K/uL (4.8-10.8)
[2017-04-27 06:53] LABS: ALT/SGPT 51 U/L (21-72); AST/SGOT 40 U/L (17-59); BLOOD UREA NITROGEN 7 mg/dL (9-20); GFR AFRICAN-AMERICAN > 60; GFR NON-AFRICAN AMERICAN > 60; MAGNESIUM 1.8 mg/dL (1.6-2.3)
[2017-04-27] MEDS: Multiple Vitamins Tab PO SCH (09:49)
[2017-04-27] MEDS: Pantoprazole 20 mg EC Tab PO SCH (10:16)
--- NOTE | 2017-04-27 15:18 | PCM.PYCHPN ---
Psychiatric Progress Note - Psychiatric Progress Note Patient seen today, length of contact: 16 minutes Patient Chief Complaint: "I am feeling much better but the solid food I ate came up yesterday." Problems Identified/Issues Discussed: The pt is seen, chart reviewed, case discussed with staff. He improved and is leaving Patient reports that he is being discharged today. Wdw is finished After care discussed, support and psychoeducation given. He will try [employer] Medication Change: No Medical Record Reviewed: Yes Mental Status Examination - Cognitive Function Orientation: Person, Place, Situation, Time Memory: Intact Attention: WNL Concentration: WNL Association: WNL Fund of Knowledge: WN - Mood Mood: Neutral - Affect Affect: Other (Appropriate) - Speech Speech: Appropriate - Formal Thought Process Formal Thought Process: No Impairment - Suicidal Ideation Suicidal Ideation: No - Homicidal Ideation Homicidal Ideation: No Goal/Treatment Plan - Goal/Treatment Plan Progress Toward Problem(s) and Goals/Treatment Plan: Librium detox ended Gabapentin for augmentation Cleared for d/c
--- NOTE | 2017-04-27 16:03 | CP.PCM.DIS ---
<Sharon Harris - Last Filed: 04/27/17 16:28> Provider - Provider Date of Admission: 04/20/17 09:40 Attending physician: Jewel Prado MD Primary care physician: Dr. Mendoza Time Spent in preparation of Discharge (in minutes): 45 Diagnosis - Discharge Diagnosis (1) Pancreatitis Status: Resolved Comment: See hospital summary for more details. (2) Alcohol abuse Status: Chronic Comment: See hospital summary for more details. (3) Cough Status: Acute Hospital Course - Lab Results Lab Results: Most Recent Lab Values WBC 8.9 K/uL (4.8-10.8) 04/27/17 06:27 RBC 4.68 Mil/uL (4.40-5.90) 04/27/17 06:27 Hgb 13.5 g/dL (12.0-18.0) 04/27/17 06:27 Hct 40.2 % (35.0-51.0) 04/27/17 06:27 MCV 85.9 fL (80.0-94.0) 04/27/17 06:27 MCH 28.9 pg (27.0-31.0) 04/27/17 06:27 MCHC 33.7 g/dL (33.0-37.0) 04/27/17 06:27 RDW 12.8 % (11.5-14.5) 04/27/17 06:27 Plt Count 157 K/uL (130-400) 04/27/17 06:27 MPV 9.2 fL (7.2-11.7) 04/27/17 06:27 Neut % (Auto) 57.8 % (50.0-75.0) 04/27/17 06:27 Lymph % (Auto) 28.1 % (20.0-40.0) 04/27/17 06:27 [place] % (Auto) 10.6 % (0.0-10.0) H 04/27/17 06:27 Eos % (Auto) 2.7 % (0.0-4.0) 04/27/17 06:27 Baso % (Auto) 0.8 % (0.0-2.0) 04/27/17 06:27 Neut # 5.1 K/uL (1.8-7.0) 04/27/17 06:27 Lymph # 2.5 K/uL (1.0-4.3) 04/27/17 06:27 [place] # 0.9 K/uL (0.0-0.8) H 04/27/17 06:27 Eos # 0.2 K/uL (0.0-0.7) 04/27/17 06:27 Baso # 0.1 K/uL (0.0-0.2) 04/27/17 06:27 Sodium 136 mmol/L (132-148) 04/27/17 06:27 Potassium 3.8 mmol/L (3.6-5.2) 04/27/17 06:27 Chloride 100 mmol/L (98-107) 04/27/17 06:27 Carbon Dioxide 27 mmol/L (22-30) 04/27/17 06:27 Anion Gap 13 (10-20) 04/27/17 06:27 BUN 7 mg/dL (9-20) L 04/27/17 06:27 Creatinine 0.7 MG/DL (0.8-1.5) L 04/27/17 06:27 Est GFR ( Amer) > 60 04/27/17 06:27 Est GFR (Non-Af Amer) > 60 04/27/17 06:27 Random Glucose 77 mg/dL (75-110) 04/27/17 06:27 Calcium 8.0 mg/dl (8.6-10.4) L 04/27/17 06:27 Phosphorus 4.2 mg/dL (2.5-4.5) 04/27/17 06:27 Magnesium 1.8 mg/dL (1.6-2.3) 04/27/17 06:27 Total Bilirubin 0.6 mg/dL (0.2-1.3) 04/27/17 06:27 AST 40 U/L (17-59) 04/27/17 06:27 ALT 51 U/L (21-72) 04/27/17 06:27 Alkaline Phosphatase 54 U/L (38-126) 04/27/17 06:27 Total Protein 5.9 g/dL (6.3-8.3) L 04/27/17 06:27 Albumin 3.0 g/dL (3.5-5.0) L 04/27/17 06:27 Globulin 2.9 gm/dL (2.2-3.9) 04/27/17 06:27 Albumin/Globulin Ratio 1.0 (1.0-2.1) 04/27/17 06:27 Amylase 139 U/L (30-110) H 04/22/17 14:06 Lipase 222 U/L (23-300) 04/22/17 14:06 Urine Color Straw (YELLOW) 04/25/17 13:03 Urine Clarity Clear (Clear) 04/25/17 13:03 Urine pH 7.0 (5.0-8.0) 04/25/17 13:03 Ur Specific [place] 1.001 (1.003-1.030) L 04/25/17 13:03 Urine Protein Negative mg/dL (NEGATIVE) 04/25/17 13:03 Urine Glucose (UA) Normal mg/dL (Normal) 04/25/17 13:03 Urine Ketones Negative mg/dL (NEGATIVE) 04/25/17 13:03 Urine Blood Negative (NEGATIVE) 04/25/17 13:03 Urine Nitrate Negative (NEGATIVE) 04/25/17 13:03 Urine Bilirubin Negative (NEGATIVE) 04/25/17 13:03 Urine Urobilinogen Normal mg/dL (0.2-1.0) 04/25/17 13:03 Ur Leukocyte Esterase Neg Elida/uL (Negative) 04/25/17 13:03 Urine WBC (Auto) < 1 /hpf (0-5) 04/20/17 08:24 Urine RBC (Auto) < 1 /hpf (0-3) 04/20/17 08:24 Urine Opiates Screen Negative (NEGATIVE) 04/20/17 08:24 Urine Methadone Screen Negative (NEGATIVE) 04/20/17 08:24 Ur Barbiturates Screen Negative (NEGATIVE) 04/20/17 08:24 Ur Phencyclidine Scrn Negative (NEGATIVE) 04/20/17 08:24 Ur Amphetamines Screen Negative (NEGATIVE) 04/20/17 08:24 U Benzodiazepines Scrn Positive (NEGATIVE) 04/20/17 08:24 U Oth Cocaine Metabols Negative (NEGATIVE) 04/20/17 08:24 U Cannabinoids Screen Negative (NEGATIVE) 04/20/17 08:24 Alcohol, Quantitative < 10 mg/dl (0-10) 04/20/17 07:55 - Hospital Course Hospital Course: CC: Consult Abdominal pain Patient was seen and examined at bedside. Medicine was consulted for management of abdominal pain, nausea, vomiting, possibly pancreatitis. Patient reports he has had abdominal pain for several days. He said he vomited once per day for the past 2 days, and vomited twice today, after meals. He says he is unsure if he's had abdominal pain like this before, as he suspects he might have while he was drinking but does not remember. He denies any fevers or chills. He states he is here for alcohol detox, but states he may have used other drugs like cocaine or heroin recently, but while he was drinking, so he doesn't remember. He says he has been drinking about ten 24-oz beers everyday for the past 3 months. Hospital course: Patient initially presented to the ED for alcohol detox and complaint of cut on left toe. Patient was admitted to Psychiatry for alcohol detoxification. While there, the Hospitalist team was consulted due to a suspicion of pancreatitis secondary to alcohol abuse and elevated lipase. Patient was started on a clear liquid diet, counselled on alcohol cessation and started on Pepcid. Repeat lipase was normalized. Patient was then put on NPO diet due to pain. Patient received a CT scan on abdomen and pelvis without P/O or IV contrast that showed no suggestion of pancreatitis as this time, although clinical pancreatitis is not excluded; further clinical correlation was advised ; signs suspicious for right-sided nephritis of indeterminate etiology; no obstructive uropathy shown; punctuate intrarenal calculi by the upper pole right kidney; no hydronephrosis or hydroureter seen; trace pelvic ascites encountered. Patient's NPO diet was discontinued and advanced to clear liquid diet. The patient reported developing a cough, for which a chest x-ray was ordered and showed no acute cardiopulmonary disease. Patient was advanced to a puree diet and monitored for toleration of diet change. Patient was able to tolerate the diet advancement. Patient's abdominal pain has improved. Patient is stable for discharge as per Dr. Solano. This is a summary of the hospital course, please see chart for more details. Patient is stable for discharge to home as per Dr. Solano. Patient should continue medications listed below: Protonix 20mg, take 1 tablet by mouth daily. Percocet, take 1 tablet every 6 hours if needed for pain. Patient is to follow up with primary care doctor, Dr. Mendoza, or with [facility] within one week of discharge. These instructions have been discussed with and understood by the patient. If symptoms reoccur, patient should return to the ED. Discharge Exam - Head Exam Head Exam: NORMAL INSPECTION, NORMOCEPHALIC - Eye Exam Eye Exam: EOMI, Normal appearance - ENT Exam ENT Exam: Mucous Membranes Moist - Neck Exam Neck exam: Normal Inspection - Respiratory Exam Respiratory Exam: Clear to PA & Lateral, NORMAL BREATHING PATTERN, UNREMARKABLE. absent: Rales, Rhonchi, Wheezes - Cardiovascular Exam Cardiovascular Exam: REGULAR RHYTHM, +S1, +S2. absent: Gallop, Rubs - GI/Abdominal Exam GI & Abdominal Exam: Normal Bowel Sounds, Tenderness (improving- epigastric region), Unremarkable - Extremities Exam Extremities exam: normal inspection - Neurological Exam Neurological exam: Alert, Oriented x3 - Psychiatric Exam Psychiatric exam: Normal Affect, Normal Mood - Skin Skin Exam: Dry, Intact, Normal Color, Warm Discharge Plan - Discharge Medications Prescriptions: oxyCODONE/Acetaminophen [Percocet 5/325 mg Tab] 1 ea PO Q6H PRN #8 tab PRN Reason: Pain, Moderate (4-7) Pantoprazole [Protonix EC Tab] 20 mg PO DAILY #30 ect - Follow Up Plan Condition: GOOD Disposition: HOME/ ROUTINE Instructions: Pancreatitis (DC), Alcohol Use Disorder (DC) Additional Instructions: Patient is stable for discharge to home as per Dr. Solano. Patient should continue medications listed below: Protonix 20mg, take 1 tablet by mouth daily. Percocet, take 1 tablet every 6 hours if needed for pain. Patient is to follow up with primary care doctor, Dr. Mendoza, or with [facility] within one week of discharge. These instructions have been discussed with and understood by the patient. If symptoms reoccur, patient should return to the ED. Referrals: Vicente Solano DO [Staff Provider] - David Mendoza MD [Medical Doctor] - 7 Days <Vicente Solano - Last Filed: 04/27/17 17:09> Provider - Provider Date of Admission: 04/20/17 09:40 Attending physician: Jewel Prado MD Hospital Course - Lab Results Lab Results: Most Recent Lab Values WBC 8.9 K/uL (4.8-10.8) 04/27/17 06:27 RBC 4.68 Mil/uL (4.40-5.90) 04/27/17 06:27 Hgb 13.5 g/dL (12.0-18.0) 04/27/17 06:27 Hct 40.2 % (35.0-51.0) 04/27/17 06:27 MCV 85.9 fL (80.0-94.0) 04/27/17 06:27 MCH 28.9 pg (27.0-31.0) 04/27/17 06:27 MCHC 33.7 g/dL (33.0-37.0) 04/27/17 06:27 RDW 12.8 % (11.5-14.5) 04/27/17 06:27 Plt Count 157 K/uL (130-400) 04/27/17 06:27 MPV 9.2 fL (7.2-11.7) 04/27/17 06:27 Neut % (Auto) 57.8 % (50.0-75.0) 04/27/17 06:27 Lymph % (Auto) 28.1 % (20.0-40.0) 04/27/17 06:27 [place] % (Auto) 10.6 % (0.0-10.0) H 04/27/17 06:27 Eos % (Auto) 2.7 % (0.0-4.0) 04/27/17 06:27 Baso % (Auto) 0.8 % (0.0-2.0) 04/27/17 06:27 Neut # 5.1 K/uL (1.8-7.0) 04/27/17 06:27 Lymph # 2.5 K/uL (1.0-4.3) 04/27/17 06:27 [place] # 0.9 K/uL (0.0-0.8) H 04/27/17 06:27 Eos # 0.2 K/uL (0.0-0.7) 04/27/17 06:27 Baso # 0.1 K/uL (0.0-0.2) 04/27/17 06:27 Sodium 136 mmol/L (132-148) 04/27/17 06:27 Potassium 3.8 mmol/L (3.6-5.2) 04/27/17 06:27 Chloride 100 mmol/L (98-107) 04/27/17 06:27 Carbon Dioxide 27 mmol/L (22-30) 04/27/17 06:27 Anion Gap 13 (10-20) 04/27/17 06:27 BUN 7 mg/dL (9-20) L 04/27/17 06:27 Creatinine 0.7 MG/DL (0.8-1.5) L 04/27/17 06:27 Est GFR ( Amer) > 60 04/27/17 06:27 Est GFR (Non-Af Amer) > 60 04/27/17 06:27 Random Glucose 77 mg/dL (75-110) 04/27/17 06:27 Calcium 8.0 mg/dl (8.6-10.4) L 04/27/17 06:27 Phosphorus 4.2 mg/dL (2.5-4.5) 04/27/17 06:27 Magnesium 1.8 mg/dL (1.6-2.3) 04/27/17 06:27 Total Bilirubin 0.6 mg/dL (0.2-1.3) 04/27/17 06:27 AST 40 U/L (17-59) 04/27/17 06:27 ALT 51 U/L (21-72) 04/27/17 06:27 Alkaline Phosphatase 54 U/L (38-126) 04/27/17 06:27 Total Protein 5.9 g/dL (6.3-8.3) L 04/27/17 06:27 Albumin 3.0 g/dL (3.5-5.0) L 04/27/17 06:27 Globulin 2.9 gm/dL (2.2-3.9) 04/27/17 06:27 Albumin/Globulin Ratio 1.0 (1.0-2.1) 04/27/17 06:27 Amylase 139 U/L (30-110) H 04/22/17 14:06 Lipase 222 U/L (23-300) 04/22/17 14:06 Urine Color Straw (YELLOW) 04/25/17 13:03 Urine Clarity Clear (Clear) 04/25/17 13:03 Urine pH 7.0 (5.0-8.0) 04/25/17 13:03 Ur Specific [place] 1.001 (1.003-1.030) L 04/25/17 13:03 Urine Protein Negative mg/dL (NEGATIVE) 04/25/17 13:03 Urine Glucose (UA) Normal mg/dL (Normal) 04/25/17 13:03 Urine Ketones Negative mg/dL (NEGATIVE) 04/25/17 13:03 Urine Blood Negative (NEGATIVE) 04/25/17 13:03 Urine Nitrate Negative (NEGATIVE) 04/25/17 13:03 Urine Bilirubin Negative (NEGATIVE) 04/25/17 13:03 Urine Urobilinogen Normal mg/dL (0.2-1.0) 04/25/17 13:03 Ur Leukocyte Esterase Neg Elida/uL (Negative) 04/25/17 13:03 Urine WBC (Auto) < 1 /hpf (0-5) 04/20/17 08:24 Urine RBC (Auto) < 1 /hpf (0-3) 04/20/17 08:24 Urine Opiates Screen Negative (NEGATIVE) 04/20/17 08:24 Urine Methadone Screen Negative (NEGATIVE) 04/20/17 08:24 Ur Barbiturates Screen Negative (NEGATIVE) 04/20/17 08:24 Ur Phencyclidine Scrn Negative (NEGATIVE) 04/20/17 08:24 Ur Amphetamines Screen Negative (NEGATIVE) 04/20/17 08:24 U Benzodiazepines Scrn Positive (NEGATIVE) 04/20/17 08:24 U Oth Cocaine Metabols Negative (NEGATIVE) 04/20/17 08:24 U Cannabinoids Screen Negative (NEGATIVE) 04/20/17 08:24 Alcohol, Quantitative < 10 mg/dl (0-10) 04/20/17 07:55 Attending/Attestation - Attestation I have personally seen and examined this patient.: Yes I have fully participated in the care of the patient.: Yes I have reviewed all pertinent clinical information, including history, physical exam and plan: Yes Notes (Text): 04/27/17 17:07 Medical attending: Patient was seen and examined by me, agree with the above note by medical technologist prn. The patient is having to have to eat very slowly as well as extremely soft foods. We advised him that when he goes that he needs eats very soft things such as applesauce, Jell-O, bananas, putting we gave him specific warnings that if he tries to eat something very solid such as a hamburger or chicken for example that he would very likely immediately throws up. He does have a history of very heavy drinking suspect there may be an element of gastritis or is been drinking so heavily that since he takes food he's having difficulty. As mentioned before had a CAT scan was negative for any inflammation around the pancreas he also had a low lipase level to nevertheless while here he's been on intravenous fluids as well as morphine for pain We did give him a short prescription for a few days duration of pain medication. Again I specifically encouraged the patient to avoid alcohol. Fourtunately for him his LFTs and bilirubin levels are stable at this time however I warned him that in the future this might not be the case. Thank you very much, Vicente Solano
[2017-04-28 11:49] VITALS: BP 125/79; PULSE 60; TEMP 98.1; O2SAT 95
== END 2017-04-27 17:10 | disposition home or self-care (01) | DRG 204 ==
LOC: C.ER 07:20 → C.9E 09:40 → C.7D 11:59 → C.5T 04-23 08:53 → C.3T 04-25 10:47
PROVIDERS: ADMIT Internal Medicine; ATTEND Internal Medicine
DX: K85.90 Acute pancreatitis without necrosis or infection, unspecified (principal); F10.239 Alcohol dependence with withdrawal, unspecified; J44.9 Chronic obstructive pulmonary disease, unspecified; B19.20 Unspecified viral hepatitis C without hepatic coma; F17.200 Nicotine dependence, unspecified, uncomplicated; Z87.01 Personal history of pneumonia (recurrent); F19.10 Other psychoactive substance abuse, uncomplicated

== ENCOUNTER 2017-06-23 16:22 | Observation (INO) | payer MEDICAID ==
[2017-06-23 16:40] VITALS: RESP 18
--- NOTE | 2017-06-23 17:09 | C.PDOC ---
History Of Present Illness 52 y/o male hx of substance abuse arrives to the ED reporting of an overdose. The patient did use heroin earlier today.The patient was brought by EMS and was administered Narcan .The patient denies any further symptoms. Time Seen by Provider: 06/23/17 16:30 Chief Complaint (Nursing): Substance Abuse History Per: Patient History/Exam Limitations: no limitations Onset/Duration Of Symptoms: Hrs Current Symptoms Are (Timing): Still Present Past Medical History Reviewed: Historical Data, Nursing Documentation, Vital Signs Vital Signs: Last Vital Signs Temp 97.6 F 06/23/17 20:15 Pulse 59 L 06/23/17 20:15 Resp 18 06/23/17 20:15 BP 112/70 06/23/17 20:15 Pulse Ox 95 06/23/17 20:15 - Medical History PMH: Anxiety, Bronchitis, COPD (Chronic bronchitis), Hepatitis, Pneumonia Denies: Diabetes, HIV, HTN, Chronic Kidney Disease, Seizures, Sexually Transmitted Disease Surgical History: No Surg Hx - [facility] DETOXIFICATION SERVICES FOR SUBSTANCE ABUSE TREATMENT (05/26/16) GROUP PSYCHOTHERAPY (05/26/16) LINEAR REP LID LACER (07/03/15) SUTURE OF LIP LACERATION (07/03/15) Family History: States: Unknown Family Hx - Social History Hx Tobacco Use: Yes Hx Alcohol Use: Yes Hx Substance Use: Yes (casually) - Immunization History Hx Tetanus Toxoid Vaccination: No Hx Influenza Vaccination: No Hx Pneumococcal Vaccination: Yes Review Of Systems Except As Marked, All Systems Reviewed And Found Negative. Constitutional: Negative for: Fever, Chills Cardiovascular: Negative for: Chest Pain Respiratory: Positive for: Cough. Negative for: Shortness of Breath Gastrointestinal: Negative for: Vomiting Physical Exam - Physical Exam Appears: Non-toxic, No Acute Distress Skin: Warm, Dry Head: Atraumatic, Normacephalic Eye(s): bilateral: Normal Inspection Oral Mucosa: Moist Neck: Supple Chest: Symmetrical Cardiovascular: Rhythm Regular Respiratory: Normal Breath Sounds Gastrointestinal/Abdominal: Soft, No Tenderness, No Guarding, No Rebound Extremity: Normal ROM, Capillary Refill (<2sec.) Neurological/Psych: Oriented x3, Normal Speech, Normal Cognition Gait: Steady ED Course And Treatment - Laboratory Results Result Diagrams: 06/23/17 17:22 06/23/17 17:22 Progress Note: The patient received bloodwork, IV fluids, and UA. Medical Decision Making Medical Decision Makin: pt reasseseD: states feeling better. awake alert, innad. no repeat narcan needed. pt askign for d/c ED OBSERVATION Date of observation admission: 06/23/17 - Observation admission statement Patient is being placed in observation because:: The patient is pending in sobriety. Disposition - Disposition Disposition: HOME/ ROUTINE Disposition Time: 20:26 Condition: STABLE - Clinical Impression Clinical Impression: Overdose - Scribe Statement The provider has reviewed the documentation as recorded by the Gilmeribsunshine Erickson All medical record entries made by the Lul were at my direction and personally dictated by me. I have reviewed the chart and agree that the record accurately reflects my personal performance of the history, physical exam, medical decision making, and the department course for this patient. I have also personally directed, reviewed, and agree with the discharge instructions and disposition.
[2017-06-23 17:33] LABS: BASO # 0.1 K/uL (0.0-0.2); BASO % 0.7 % (0.0-2.0); EOS # 0.1 K/uL (0.0-0.7); EOS % 1.4 % (0.0-4.0); HEMATOCRIT 43.5 % (35.0-51.0); LYMPH # 1.5 K/uL (1.0-4.3); LYMPH % 19.7 % (20.0-40.0); MEAN CELL VOLUME 87.5 fL (80.0-94.0); MEAN CORPUSCULAR HEMOGLOBIN 29.4 pg (27.0-31.0); MEAN CORPUSCULAR HGB CONC 33.6 g/dL (33.0-37.0); MEAN PLATELET VOLUME 9.5 fL (7.2-11.7); MONO # 0.5 K/uL (0.0-0.8); MONO % 6.8 % (0.0-10.0); NRBC % 0.1 % (0.0-2.0); RED CELL DISTRIBUTION WIDTH 13.5 % (11.5-14.5); WHITE BLOOD COUNT 7.6 K/uL (4.8-10.8)
[2017-06-23 17:48] LABS: ALB/GLOB RATIO 1.3 (1.0-2.1); ALCOHOL SERUM 156 mg/dl (0-10); ALKALINE PHOSPHATASE 69 U/L (38-126); ALT/SGPT 86 U/L (21-72); AST/SGOT 57 U/L (17-59); BILIRUBIN,TOTAL 0.4 mg/dL (0.2-1.3); BLOOD UREA NITROGEN 13 mg/dL (9-20); CALCIUM 8.5 mg/dl (8.6-10.4); CARBON DIOXIDE 20 mmol/L (22-30); CHLORIDE 101 mmol/L (98-107); GFR AFRICAN-AMERICAN > 60; GLUCOSE,RANDOM 103 mg/dL (75-110); POTASSIUM 3.7 mmol/L (3.6-5.2); SODIUM 139 mmol/L (132-148); TOTAL PROTEIN 7.2 g/dL (6.3-8.3)
[2017-06-23 17:50] LABS: RBC URINE 1 /hpf (0-3); TRANSITIONAL EPITHIAL < 1 /hpf (0-3); URINE BACTERIA RARE (<OCC); URINE BILIRUBIN NEGATIVE (NEGATIVE); URINE BLOOD NEGATIVE (NEGATIVE); URINE COLOR Yellow (YELLOW); URINE GLUCOSE (UA) NORMAL (Normal); URINE KETONE NEGATIVE (NEGATIVE); URINE LEUKOCYTE ESTERASE NEG Leu/uL (Negative); URINE PROTEIN 1+ mg/dL (NEGATIVE); URINE UROBILINOGEN NORMAL mg/dL (0.2-1.0); WBC URINE 3 /hpf (0-5)
[2017-06-23 20:17] VITALS: BP 112/70; PULSE 59; TEMP 97.6; O2SAT 95
== END 2017-06-23 20:25 | disposition home or self-care (01) ==
LOC: C.ER 16:22 → C.9OBSV 17:50
PROVIDERS: ADMIT Student in an Organized Health Care Education/Training Program; ATTEND Student in an Organized Health Care Education/Training Program
DX: T40.1X1A Poisoning by heroin, accidental (unintentional), initial encounter (principal); J44.9 Chronic obstructive pulmonary disease, unspecified
CPT/HCPCS: 80053; 80320; 80324; 80345; 80346; 80349; 80353; 80358; 80361; 81001; 83992; 85025; 99285; G0378

== ENCOUNTER 2017-10-09 13:44 | Emergency (ER) | payer MEDICAID ==
[2017-10-09 13:53] VITALS: BMI 25.8
[2017-10-09 13:55] VITALS: RESP 18
--- NOTE | 2017-10-09 14:27 | C.PDOC ---
History Of Present Illness 52 yr old male presents to the ER for evaluation of left thumb pain and deformity developed 3 days after sustained mechanical fall , " trying to break fall with hand". Now c/o mild discomfort on left thumb movement. Denies skin changes, weakness, sensory or vascular deficits to injured hand, denies hx of previous injury to left hand. Ambulate to Ed for evaluation, not in any apparent distress. Time Seen by Provider: 10/09/17 13:58 Chief Complaint (Nursing): Finger,Hand,&Wrist History Per: Patient History/Exam Limitations: no limitations Onset/Duration Of Symptoms: Days (3) Past Medical History Reviewed: Historical Data, Nursing Documentation, Vital Signs Vital Signs: Last Vital Signs Temp 97.7 F 10/09/17 15:00 Pulse 70 10/09/17 15:00 Resp 18 10/09/17 15:00 BP 134/79 10/09/17 15:00 Pulse Ox 98 10/09/17 15:00 - Medical History PMH: Anxiety, Bronchitis, COPD (Chronic bronchitis), Hepatitis, Pneumonia - [facility] Procedures DETOXIFICATION SERVICES FOR SUBSTANCE ABUSE TREATMENT (05/26/16) GROUP PSYCHOTHERAPY (05/26/16) LINEAR REP LID LACER (07/03/15) SUTURE OF LIP LACERATION (07/03/15) Family History: States: No Known Family Hx - Social History Hx Tobacco Use: Yes Hx Alcohol Use: Yes Hx Substance Use: Yes (casually) - Immunization History Hx Tetanus Toxoid Vaccination: No Hx Influenza Vaccination: No Hx Pneumococcal Vaccination: Yes Review Of Systems Except As Marked, All Systems Reviewed And Found Negative. Musculoskeletal: Positive for: Hand Pain ( Left hand, thumb pain). Negative for : Arm Pain Neurological: Negative for: Weakness, Numbness Physical Exam - Physical Exam Appears: Non-toxic, No Acute Distress Skin: Warm, Dry, No Rash, No Ecchymosis Head: Atraumatic, Normacephalic Oral Mucosa: Moist Extremity: Capillary Refill (<2 secs), Other (Left Hand, Thumb - Tenderness over the left 1st MCJ with some deformity) Neurological/Psych: Oriented x3, Normal Speech, Normal Motor, Normal Sensation ED Course And Treatment O2 Sat by Pulse Oximetry: 100 (RA) Pulse Ox Interpretation: Normal - Other Rad X-Ray - Left Hand, Thumb X-Ray: Viewed By Me, Read By Radiologist Interpretation: PROCEDURE: Left Thumb radiographs. HISTORY: INJURY. COMPARISON: None. TECHNIQUE: AP radiograph of the left hand, as well as spot oblique and lateral images of thumb were obtained. FINDINGS: LEFT THUMB: A radial sided 1st metacarpal head bordering 4 mm ossification- compatible with an acute or subacute os osseous avulsion injury from the same . First metacarpal head osseous hypertrophy. Ulnar-sided and volar 2 sesamoid bones a well corticated suggested. Tinier sesamoid bone volar aspect 1st interphalangeal joint also noted. JOINTS: First metacarpal phalangeal joint space mild narrowing. SOFT TISSUES: Soft tissue swelling over 1st metacarpal head. OTHER FINDINGS: None. IMPRESSION: 4 mm osseous avulsion radial side 1st metacarpal head -acute subacute basis suggested. Progress Note: On re-eavluation, pt is afebrile, hemodynamicaly stable. NOn- toxic. Left hand: exam c/w deformity over Left 1st MCPJ with mild discomfort to Left thumb movement. No skin changes, no neurovascular deficits. xray review (+) fx 1st MCB. SPlint applied. Pt advised and ref. to F/U with Hand or Ortho in 1-2 days for re-eavl. return to ED if any worsening or new changes. Orthopedic Time Performed: 14:24 Time Out: Side verified, Site verified, Patient ID confirmed Procedure: Splint Type: Thumb spica Location: Left, Hand Consent obtained: Verbal Performed by: Mid-level Provider Diagnosis: Fracture Type: Closed Location: Left Bone: Metacarpal, 1st Medical Decision Making Medical Decision Making: PLAN: * X-Ray - Left Hand, Thumb Disposition Counseled Patient/Family Regarding: Studies Performed, Diagnosis, Need For Followup, Rx Given - Disposition Referrals: Juan Lock MD [Staff Provider] - [facility] [Outside] [facility] [Outside] Disposition: HOME/ ROUTINE Disposition Time: 14:24 Condition: STABLE Additional Instructions: SPLINT UNTIL SEEN AND CLEARED BY HAND SPECIALISTS/ORTHOPEDIST FOLLOW UP WITH ORTHOPEDIST PRIVATE OR AT ORTHO CLINIC LOCATED AT [facility] IN 2-3 DAYS FOR RE-EVALUATION AND FURTHER TREATMENT. RETURN TO ED IF ANY WORSENING OR NEW CHANGES. Prescriptions: traMADol [Ultram] 50 mg PO TID #10 tab Instructions: Finger Fracture (ED) Forms: [facility] (Indonesian), Work Excuse - Clinical Impression Clinical Impression: Finger fracture - PA / QUAL RESEARCH MANAGER / Resident Statement MD/DO has reviewed & agrees with the documentation as recorded. - Scribe Statement The provider has reviewed the documentation as recorded by the Scribe Ro Whittington All medical record entries made by the Scribe were at my direction and personally dictated by me. I have reviewed the chart and agree that the record accurately reflects my personal performance of the history, physical exam, medical decision making, and the department course for this patient. I have also personally directed, reviewed, and agree with the discharge instructions and disposition.
--- NOTE | 2017-10-09 14:45 | RAD ---
PROCEDURE: Left Thumb radiographs. HISTORY: INJURY COMPARISON: None. TECHNIQUE: AP radiograph of the left hand, as well as spot oblique and lateral images of thumb were obtained. FINDINGS: LEFT THUMB: A radial sided 1st metacarpal head bordering 4 mm ossification- compatible with an acute or subacute os osseous avulsion injury from the same . First metacarpal head osseous hypertrophy Ulnar-sided and volar 2 sesamoid bones a well corticated suggested. Tinier sesamoid bone volar aspect 1st interphalangeal joint also noted JOINTS: First metacarpal phalangeal joint space mild narrowing SOFT TISSUES: Soft tissue swelling over 1st metacarpal head OTHER FINDINGS: None. IMPRESSION: 4 mm osseous avulsion radial side 1st metacarpal head -acute subacute basis suggested.
[2017-10-09] MEDS ORDERED: Oxycodone/Acetaminophen 5/325 mg Tab PO STA (14:47)
[2017-10-09] MEDS ORDERED: Oxycodone/Acetaminophen 5/325 mg Tab ONE (14:55)
[2017-10-09 15:03] VITALS: BP 134/79; PULSE 70; TEMP 97.7
[2017-10-09 17:23] VITALS: O2SAT 100
== END 2017-10-09 15:05 | disposition home or self-care (01) ==
LOC: C.ER 13:44
DX: S62.502A Fracture of unspecified phalanx of left thumb, initial encounter for closed fracture (principal); W19.XXXA Unspecified fall, initial encounter; J44.9 Chronic obstructive pulmonary disease, unspecified; Z87.891 Personal history of nicotine dependence

== ENCOUNTER 2017-12-22 01:38 | Emergency (ER) | payer MEDICAID ==
[2017-12-22 01:39] VITALS: BMI 25.8
[2017-12-22] MEDS ORDERED: Oxycodone/Acetaminophen 5/325 mg Tab PO STA (02:33)
[2017-12-22] MEDS ORDERED: Oxycodone/Acetaminophen 5/325 mg Tab ONE (02:43)
--- NOTE | 2017-12-22 03:14 | C.PDOC ---
History Of Present Illness 52 y/o male presents to ED stating he had recent surgery on the and was admitted in subacute rehab and discharged today. Patient states "insurance stopped paying." Patient complains of pain to right leg. He also states he was unable to get a wheelchair. Denies fever, drainage, numbness, weakness, trauma, or any other physical complaints. Time Seen by Provider: 12/22/17 01:54 Chief Complaint (Nursing): Lower Extremity Problem/Injury History Per: Patient History/Exam Limitations: no limitations Onset/Duration Of Symptoms: Hrs Current Symptoms Are (Timing): Still Present Recent travel outside of the [place] States: No - Hip Description Of Injury: denies: Fell - Knee Description Of Injury: denies: Fell - Ankle/Foot Description Of Injury: denies: Fell Past Medical History Reviewed: Historical Data, Nursing Documentation, Vital Signs Vital Signs: Last Vital Signs Temp 97.8 F 12/22/17 04:26 Pulse 88 12/22/17 04:26 Resp 22 12/22/17 04:26 BP 133/70 12/22/17 04:26 Pulse Ox 96 12/22/17 04:26 - Medical History PMH: Anxiety, Bronchitis, COPD (Chronic bronchitis), Hepatitis, Pneumonia - [facility] Procedures DETOXIFICATION SERVICES FOR SUBSTANCE ABUSE TREATMENT (05/26/16) GROUP PSYCHOTHERAPY (05/26/16) LINEAR REP LID LACER (07/03/15) SUTURE OF LIP LACERATION (07/03/15) Family History: States: Unknown Family Hx - Social History Hx Tobacco Use: Yes Hx Alcohol Use: Yes Hx Substance Use: Yes (casually) - Immunization History Hx Tetanus Toxoid Vaccination: No Hx Influenza Vaccination: No Hx Pneumococcal Vaccination: Yes Review Of Systems Except As Marked, All Systems Reviewed And Found Negative. Constitutional: Negative for: Fever, Chills Gastrointestinal: Negative for: Nausea, Vomiting, Diarrhea Musculoskeletal: Positive for: Leg Pain (right) Neurological: Negative for: Weakness, Numbness Physical Exam - Physical Exam Appears: Non-toxic, No Acute Distress Skin: Normal Color, Warm, Dry, No Rash Head: Atraumatic, Normacephalic Eye(s): bilateral: Normal Inspection Oral Mucosa: Moist Neck: Normal ROM, Supple Chest: Symmetrical, No Tenderness Cardiovascular: Rhythm Regular, No Friction Rub, No Murmur Respiratory: No Decreased Breath Sounds, No Rales, No Rhonchi, No Wheezing Gastrointestinal/Abdominal: Soft, No Tenderness Back: Normal Inspection, No CVA Tenderness Extremity: Swelling (right leg ), Other (Minimal redness around incision area) Neurological/Psych: Oriented x3, Normal Speech, Normal Cognition, Normal Motor, Normal Sensation Gait: Steady ED Course And Treatment O2 Sat by Pulse Oximetry: 98 (RA) Pulse Ox Interpretation: Normal Medical Decision Making Medical Decision Making: Patient is requesting pain medications as he states he wasnt given any upon discharge from subacute. Administered Percocet On re-exam, the patient is walking in the Ed without difficulty. Patient does not require a wheelchair at this time. Patient reports improvement of symptoms. Lungs are CTA, heart is RRR, abdomen is soft, non-tender and tolerating PO well. Follow up with the medical doctor/clinic within 1-2 days. Return if worsened. Disposition - Disposition Referrals: Checo Goodrich MD [Staff Provider] - Disposition: HOME/ ROUTINE Disposition Time: 03:42 Condition: GOOD Additional Instructions: Follow up with the medical doctor within 1-2 days. Return if worsened. Prescriptions: Doxycycline Hyclate 100 mg PO BID #20 cap traMADol [Ultram] 50 mg PO Q6 PRN #20 tab PRN Reason: Pain Instructions: Dependent Edema (DC) Forms: [facility] (Sinhala) - POA Present On Arrival: None - Clinical Impression Clinical Impression: Post-op pain, Leg pain - PA / UTILITY WORKER DRIVER / Resident Statement MD/DO has reviewed & agrees with the documentation as recorded. - Scribe Statement The provider has reviewed the documentation as recorded by the Gilmeribsunshine Alegria All medical record entries made by the Gilmeribsunshine were at my direction and personally dictated by me. I have reviewed the chart and agree that the record accurately reflects my personal performance of the history, physical exam, medical decision making, and the department course for this patient. I have also personally directed, reviewed, and agree with the discharge instructions and disposition.
[2017-12-22 04:26] VITALS: BP 133/70; PULSE 88; RESP 22; TEMP 97.8
[2017-12-23 22:49] VITALS: O2SAT 98
== END 2017-12-22 04:45 | disposition home or self-care (01) ==
LOC: C.ER 01:38
DX: G89.18 Other acute postprocedural pain (principal); M79.604 Pain in right leg; Z72.0 Tobacco use

== ENCOUNTER 2017-12-29 16:54 | Inpatient (IN) | payer MEDICAID ==
[2017-12-29 16:55] VITALS: BMI 25.8
[2017-12-29] MEDS ORDERED: Cefepime 1 GM in Sodium Chloride 0.9% 50 ML IVPB STA (17:11)
[2017-12-29] MEDS ORDERED: Cefepime IV 1 gm in Dextrose 1 GM/50 ML BAG IVPB SCH (17:30)
--- NOTE | 2017-12-29 17:44 | RAD ---
PROCEDURE: Right Ankle Radiographs. HISTORY: right ankle pain, swelling COMPARISON: None FINDINGS: BONES: Status post ORIF comminuted distal tibial diaphyseal fracture. There is a comminuted spiral fracture of the distal fibular diaphysis as well. Orthopedic hardware appears intact. JOINTS: Normal. No osteoarthritis. Ankle mortise maintained. Talar dome intact SOFT TISSUES: Normal. OTHER FINDINGS: None. IMPRESSION: ORIF comminuted tibial fracture. Comminuted fibular fracture. No callus.
--- NOTE | 2017-12-29 17:45 | RAD ---
PROCEDURE: Radiographs of the right tibia and fibula. HISTORY: pain, swelling COMPARISON: None available. TECHNIQUE: Frontal and lateral views obtained. FINDINGS: BONES: Status post ORIF comminuted distal tibial diaphyseal fracture. Mild displacement of fracture fragments. There is a comminuted helical fracture of the distal fibula. There is no callus. There is no other fracture. JOINT SPACES: Unremarkable. OTHER FINDINGS: None. IMPRESSION: Comminuted distal tibial and fibular fractures with fixation of tibial fracture.
--- NOTE | 2017-12-29 17:54 | C.PDOC ---
History Of Present Illness Patient BIBA for pain, swelling and redness of right lower leg. Patient is s/p ORIF for tib/fib fracture Nov 28 at [facility]. He does not know name of orthopedic surgeon, and has not followed up as outpatient with orthopedics. He states the area has been swollen and red for several weeks, however pain/symptoms are worsening. Patient denies SOB, chest pain, palpitations. Patient is s/p PO antibiotics, states he was compliant with doxycycline given to him on 12/22/17 at [facility]. Patient is also c/o feeling increasingly depressed and has been having suicidal ideations, without specific plan. PMHx of COPD, bronchitis, pneumonia, anxiety/depression. Time Seen by Provider: 12/29/17 16:59 Chief Complaint (Nursing): Abnormal Skin Integrity History Per: Patient, EMS History/Exam Limitations: no limitations Onset/Duration Of Symptoms: Persistent (weeks) Current Symptoms Are (Timing): Worse Severity: Moderate Past Medical History Reviewed: Historical Data, Nursing Documentation, Vital Signs Vital Signs: Last Vital Signs Temp 98.4 F 01/04/18 15:11 Pulse 60 01/04/18 15:11 Resp 20 01/04/18 15:11 BP 104/63 01/04/18 15:11 Pulse Ox 94 L 01/04/18 15:11 - Medical History PMH: Anxiety, Bronchitis, COPD (Chronic bronchitis), Hepatitis, Pneumonia Other Surgeries: ORIF right tib/fib 11/28/17 - [facility] Procedures DETOXIFICATION SERVICES FOR SUBSTANCE ABUSE TREATMENT (05/26/16) GROUP PSYCHOTHERAPY (05/26/16) LINEAR REP LID LACER (07/03/15) SUTURE OF LIP LACERATION (07/03/15) Family History: States: No Known Family Hx - Social History Hx Tobacco Use: Yes Hx Alcohol Use: Yes Hx Substance Use: Yes (casually) - Immunization History Hx Tetanus Toxoid Vaccination: No Hx Influenza Vaccination: No Hx Pneumococcal Vaccination: Yes Review Of Systems Except As Marked, All Systems Reviewed And Found Negative. Cardiovascular: Negative for: Chest Pain, Palpitations Respiratory: Negative for: Shortness of Breath Musculoskeletal: Positive for: Leg Pain (right lower leg pain, swelling, redness ) Physical Exam - Physical Exam Appears: Well, Non-toxic, In Acute Distress (in mild to moderate pain ) Skin: Other (see extremity exam) Oral Mucosa: Moist Cardiovascular: Rhythm Regular (bradycardic ) Respiratory: Normal Breath Sounds, No Rales, No Rhonchi, No Wheezing Extremity: Tenderness (right lower leg diffusely tender, moderately swollen and erythematous - greatest at distral tib/fib, medial aspect of mid lower lef approx 3cm ulceration with granulation tissie, no discharge), Capillary Refill ( < 2 sec all digits), No Deformity, Swelling Pulses: Left Dorsalis Pedis: Normal, Right Dorsalis Pedis: Normal Neurological/Psych: Oriented x3, Normal Sensation ED Course And Treatment - Laboratory Results Result Diagrams: 01/04/18 06:59 01/04/18 06:59 O2 Sat by Pulse Oximetry: 100 (RA) Pulse Ox Interpretation: Normal - Other Rad right tib fib Xray X-Ray: Viewed By Me, Read By Radiologist Interpretation: Accession No. : [id number]. Patient Name / ID : ALIREZA VERGARA / [id number]. Exam Date : 12/29/2017 17:13:30 ( Approved ). Study Comment : Sex / Age : M / 52Y. Creator : Vicente Kent MD. Dictator : Vicente Kent MD. Acoustic Engineer : Wireless Sales Expert : Vicente Kent MD. Approver2 : Report Date : 12/29/2017 17:42:54. My Comment : . PROCEDURE: Right Ankle Radiographs. HISTORY: right ankle pain, swelling. COMPARISON: None. FINDINGS: BONES: Status post ORIF comminuted distal tibial diaphyseal fracture. There is a comminuted spiral fracture of the distal fibular diaphysis as well. Orthopedic hardware appears intact. JOINTS: Normal. No osteoarthritis. Ankle mortise maintained. Talar dome intact. SOFT TISSUES: Normal. OTHER FINDINGS: None. IMPRESSION: ORIF comminuted tibial fracture. Comminuted fibular fracture. No callus. right ankle Xray X-Ray: Viewed By Me, Read By Radiologist Interpretation: Accession No. : [id number]. Patient Name / ID : ALIREZA VERGARA / [id number]. Exam Date : 12/29/2017 17:13:09 ( Approved ). Study Comment : Sex / Age : M / 52Y. Creator : Vicente Kent MD. Dictator : Vicente Kent MD. Acoustic Engineer : Wireless Sales Expert : Vicente Kent MD. Approver2 : Report Date : 12/29/2017 17:43:47. My Comment : . PROCEDURE: Radiographs of the right tibia and fibula. HISTORY: pain, swelling. COMPARISON: None available. TECHNIQUE: Frontal and lateral views obtained. FINDINGS: BONES: Status post ORIF comminuted distal tibial diaphyseal fracture. Mild displacement of fracture fragments. There is a comminuted helical fracture of the distal fibula. There is no callus. There is no other fracture. JOINT SPACES: Unremarkable. OTHER FINDINGS: None. IMPRESSION: Comminuted distal tibial and fibular fractures with fixation of tibial fracture. Progress Note: Blood work, Xrays of right tib/fib and ankle ordered and reviewed. Patient given IV NS bolus, IV Vancomycin, IV Cefepime. Patient placed on 1:1 observation for SI/depression. - Physician Consult Information Physician Contacted: Andrew Shah Outcome Of Conversation: Discussed patient with medicine sales professional, he agrees with admission for right lower extremity cellulitis/wound s/p ORIF. He is aware doppler tech not currently in house, doppler is ordered for tomorrow AM. He would like ortho sales professional consulted - routine consult for Dr. Tijerina entered. Consult for psychiatry sales professional also entered. Disposition - Disposition Disposition: HOSPITALIZED Disposition Time: 18:50 Condition: STABLE - Clinical Impression Clinical Impression: Cellulitis of right lower leg, Failure of outpatient treatment, Depression Decision To Admit - Pt Status Changed To: Hospital Disposition Of: Inpatient - Admit Certification Admit to Inpatient:: After my assessment, the patient will require hospitalization for at least two midnights. This is because of the severity of symptoms shown, intensity of services needed, and/or the medical risk in this patient being treated as an outpatient. - InPatient: Physician Admission Certification: I certify that this patient requires 2 or more midnights of care for the following reason:: see notes - . Bed Request Type: Regular Admitting Physician: Andrew Shah Patient Diagnosis: Cellulitis of right lower leg, Depression, Failure of outpatient treatment
[2017-12-29 17:57] LABS: BASO # 0.1 K/uL (0.0-0.2); EOS # 0.3 K/uL (0.0-0.7); EOS % 2.4 % (0.0-4.0); HEMOGLOBIN 13.8 g/dL (12.0-18.0); LYMPH # 3.1 K/uL (1.0-4.3); LYMPH % 29.6 % (20.0-40.0); MEAN CELL VOLUME 84.7 fL (80.0-94.0); MEAN CORPUSCULAR HEMOGLOBIN 27.7 pg (27.0-31.0); MEAN CORPUSCULAR HGB CONC 32.8 g/dL (33.0-37.0); MEAN PLATELET VOLUME 9.9 fL (7.2-11.7); MONO # 0.6 K/uL (0.0-0.8); NEUT # 6.5 K/uL (1.8-7.0); NRBC % 0.1 % (0.0-2.0); RBC 4.97 Mil/uL (4.40-5.90); RED CELL DISTRIBUTION WIDTH 14.3 % (11.5-14.5); WHITE BLOOD COUNT 10.6 K/uL (4.8-10.8)
[2017-12-29] MEDS ORDERED: Vancomycin 1 gm/NS 200 ml 1 GM/200 ML BAG IVPB SCH (18:00)
[2017-12-29 18:07] LABS: ALB/GLOB RATIO 1.1 (1.0-2.1); ALBUMIN 4.5 g/dL (3.5-5.0); ALT/SGPT 60 U/L (21-72); AST/SGOT 62 U/L (17-59); BLOOD UREA NITROGEN 19 mg/dL (9-20); CALCIUM 9.7 mg/dl (8.6-10.4); GFR AFRICAN-AMERICAN > 60; GFR NON-AFRICAN AMERICAN > 60
[2017-12-29 18:16] LABS: VENOUS BLOOD GAS BASE EXCESS 4.3 mmol/L (0.0-2.0); VENOUS BLOOD GAS PCO2 47 mmHg (40-60); VENOUS BLOOD GAS PO2 36 mm/Hg (30-55); VENOUS BLOOD PH 7.41 (7.32-7.43)
[2017-12-29 19:40] LABS: SQUAMOUS EPITHIAL < 1 /hpf (0-5); URINE BILIRUBIN NEGATIVE (NEGATIVE); URINE BLOOD NEGATIVE (NEGATIVE); URINE CLARITY Hazy (Clear); URINE COLOR Amber (YELLOW); URINE GLUCOSE (UA) NORMAL (Normal); URINE LEUKOCYTE ESTERASE NEG Leu/uL (Negative); URINE PROTEIN NEGATIVE (NEGATIVE)
[2017-12-29 19:59] LABS: BARBITURATES, UR NEGATIVE (NEGATIVE); OPIATES, UR NEGATIVE (NEGATIVE); PHENCYCLIDINE, UR NEGATIVE (NEGATIVE)
[2017-12-29 20:02] LABS: BENZODIAZEPINES, UR POSITIVE (NEGATIVE)
[2017-12-30] MEDS ORDERED: Oxycodone/Acetaminophen 5/325 mg Tab PO ONE (06:52)
[2017-12-30] MEDS: Piperacill/Tazo 3.375gm in Dex 3.375 GM/50 ML BAG IVPB SCH ×3 (08:51→20:17)
[2017-12-30] MEDS: Enoxaparin 40 mg Syringe SC SCH (09:44)
[2017-12-30] MEDS: Vancomycin 1 gm/NS 200 ml 1 GM/200 ML BAG IVPB SCH ×2 (09:44→22:02)
[2017-12-30] MEDS: Oxycodone/Acetaminophen 5/325 mg Tab PO PRN ×3 (09:44→19:22)
--- NOTE | 2017-12-30 10:54 | PCM.PSYCH ---
Initial Psychiatric Evaluation - Initial Psychiatric Evaluation Type of Admission: Voluntary Legal Status: Capacity Chief Complaint (in patient's own words): "I am very depressed History of Present Illness and Precipitating Events: The patient is seen, chart reviewed and case discussed. Neck psych consultation is requested for his suicidal thoughts and depression. This is a 52-year-old white male, single with no child, homeless, unemployed. He says he lost his room last week because of not paying rent. He cries and states that "I can't work with my leg." The patient reports depressive symptoms but denies manic symptoms, however he hears voices telling him "nothing is going to gets better" He thought about suicide by jumping off a building and "everything," but currently contracts for safety and agrees to follow safety plan. He denies drugs and alcohol but he used to use cocaine and alcohol in the past. Past psych history: He was hospitalized twice in [facility] but last one was in . He is not on any medications. He attempted suicide 4 times he claims and last one was 2 months ago by trying to hang himself. Medical history: He has MRSA and cellulitis now. Family psych history: Mother's side had depression Current Medications: Active Medications Generic Name Dose Route Start Last Admin Trade Name Dylonq PRN Reason Stop Dose Admin Enoxaparin Sodium 40 mg 12/30/17 10:00 12/30/17 09:44 Lovenox SC 40 mg DAILY ELLIOTT Administration Cefepime HCl 1 gm in 50 mls @ 100 mls/hr 12/29/17 17:30 Maxipime Iv 1 Gm Premix IVPB ONCE ELLIOTT Protocol Piperacillin Sod/Tazobactam Sod 3.375 gm in 50 mls @ 100 mls/hr 12/30/17 09: 00 12/30/17 08:51 Zosyn 3.375 Gm Iv Premix IVPB 100 mls/hr Q6H ELLIOTT Administration Protocol Vancomycin/Sodium Chloride 1 gm in 200 mls @ 133.333 mls/hr 12/30/17 10:00 09:44 Vancomycin 1 Gm/Ns 200 Ml IVPB 133.333 mls/hr Q12H ELLIOTT Administration Protocol Oxycodone/Acetaminophen 2 tab 12/30/17 07:57 12/30/17 09:44 Percocet 5/325 Mg Tab PO 01/02/18 07:58 2 tab Q4H PRN Administration Pain, moderate (4-7) Past Psychiatric History - Past Psychiatric History Previous Treatment History: Inpatient Pertinent Medical Hx (Current Medical&Sleep Prob, Allergies): Allergies Allergy/AdvReac Type Severity Reaction Status Date / Time No Known Allergies Allergy Verified 12/22/17 18:40 traMADol [Ultram] 50 mg PO Q6 PRN #20 tab 12/22/17 Review of Systems - Neurological Neurological: UNREMARKABLE - Psychiatric Psychiatric: Anhedonia, Anxiety, Behavioral Changes, Change in Appetite, Depression, Difficulty Concentrating, Hallucinations, Irritability, Suicidal Ideation (vague, no plans/intention). absent: Homicidal Ideation Mental Status Examination - Personal Presentation Personal Presentation: Looks older than stated age (unkempt) - Affect Affect: Constricted - Motor Activity Motor Activity: Calm - Reliability in Providing Information Reliability in Providing Information: Good - Speech Speech: Organized - Mood Mood: Depressed, Anxious - Formal Thought Process Formal Thought Process: Hallucinations - Cognitive Functions Orientation: Person, Place, Situation, Time Sensorium: Alert Attention/Concentration: Easily distracted Abstract Thinking: [place] Estimate of Intelligence: Average Judgement: Intact, as evidence by: Insight regarding need for hospitalization Memory: Recent intact, as evidence by: Ability to recall events of the day, Remote impaired as evidenced by: Inability to recall sig life events - Risk Risk: Diminished functioning - Strength & Assets Inventory Strength & Assets Inventory: Cooperative - Limitations Limitations: Living alone, Other DSM 5 DX - DSM 5 DSM 5 Diagnosis: Major depressive disorder, recurrent, severe with psychotic features Anxiety disorder unspecified Cocaine use disorder in remission Alcohol use disorder in remission - Recommended/Plan of Treatment Treatment Recommendations and Plan of Treatment: Start Lexapro for depression Gabapentin for anxiety All risks, benefits and alternatives of the meds discussed, and the pt agreed and understood. CBT for depression Psychoeducation and support daily Encourage compliance with meds and after care Refer to outpatient program Teach healthy lifestyle methods, i.e. diet, exercise, meditation Smoking cessation and patch if needed Patient can be transferred to psychiatry when medically cleared. 32 min - Smoking Cessation Smoking Cessation Initiated: Yes
--- NOTE | 2017-12-30 11:43 | CP.PCM.CON ---
History of Present Illness - History of Present Illness History of Present Illness: ID: 52 yo male CC: s/p Interlocking /intramedulallry nail L femur-pt presents with discomfort anderythema at distal 1/3 tibia HPI- 52 yo male sustained a fall down stairs on in November;pt transported by ambulance to [facility]. PT undrwent ORIF displced distal 1/3 tibia fx. Pt now present weith pain, ertyhema and rstricted ROM R ankle.. Xrays reveal adequate fixation of the tibia, but deformity and incomplete fixation of the fibula fx. Pt presetns with mild clinical cellulitis. past med/surg hx contrib Past Patient History - Infectious Disease Hx of Infectious Diseases: None - Past Medical History & Family History Past Medical History?: Yes - Past Social History Smoking Status: Light Smoker < 10 Cigarettes Daily - CARDIAC Hx Cardiac Disorders: (Patient denied) Hx Hypertension: (Patient denied) - PULMONARY Hx Bronchitis: Yes Hx Chronic Obstructive Pulmonary Disease (COPD): Yes (Chronic bronchitis) Hx Pneumonia: Yes - NEUROLOGICAL HX Cerebrovascular Accident: (Patient denied) Hx Seizures: (Patient denied) - HEENT Hx HEENT Problems: Yes Other/Comment: " defect on L eye,Blurry Vision " - RENAL Hx Chronic Kidney Disease: No - ENDOCRINE/METABOLIC Hx Endocrine Disorders: No - HEMATOLOGICAL/ONCOLOGICAL Hx Cancer: (Patient denied) Hx Human Immunodeficiency Virus (HIV): (Patient denied) - INTEGUMENTARY Hx Dermatological Problems: No - MUSCULOSKELETAL/RHEUMATOLOGICAL Hx Falls: Yes - GASTROINTESTINAL Hx Gastrointestinal Disorders: No - GENITOURINARY/GYNECOLOGICAL Hx Sexually Transmitted Disorders: (Patient denied) - PSYCHIATRIC Hx Substance Use: No - SURGICAL HISTORY Hx Surgeries: Yes Hx Orthopedic Surgery: Yes (R leg 11/28/17) Other/Comment: Surgery on L shoulder 15. years ago from injury", a big TV fell on my Shoulder" - ANESTHESIA Hx Anesthesia: Yes Hx Anesthesia Reactions: No Hx Malignant Hyperthermia: No Meds Allergies/Adverse Reactions: Allergies Allergy/AdvReac Type Severity Reaction Status Date / Time No Known Allergies Allergy Verified 12/22/17 18:40 - Medications Medications: Current Medications Enoxaparin Sodium (Lovenox) 40 mg SC DAILY [facility] Last Admin: 12/30/17 09:44 Dose: 40 mg Escitalopram Oxalate (Lexapro) 5 mg PO DAILY ELLIOTT Gabapentin (Neurontin) 300 mg PO BID ELLIOTT Cefepime HCl (Maxipime Iv 1 Gm Premix) 1 gm in 50 mls @ 100 mls/hr IVPB ONCE ELLIOTT PRN Reason: Protocol Piperacillin Sod/Tazobactam Sod (Zosyn 3.375 Gm Iv Premix) 3.375 gm in 50 mls @ 100 mls/hr IVPB Q6H ELLIOTT PRN Reason: Protocol Last Admin: 12/30/17 08:51 Dose: 100 mls/hr Vancomycin/Sodium Chloride (Vancomycin 1 Gm/Ns 200 Ml) 1 gm in 200 mls @ 133.333 mls/hr IVPB Q12H ELLIOTT PRN Reason: Protocol Last Admin: 12/30/17 09:44 Dose: 133.333 mls/hr Oxycodone/Acetaminophen (Percocet 5/325 Mg Tab) 2 tab PO Q4H PRN PRN Reason: Pain, moderate (4-7) Stop: 01/02/18 07:58 Last Admin: 12/30/17 09:44 Dose: 2 tab Trazodone HCl (Desyrel) 100 mg PO [facility] Results - Vital Signs Recent Vital Signs: Last Vital Signs Temp 97.9 F 12/30/17 08:00 Pulse 80 12/30/17 08:00 Resp 20 12/30/17 08:00 BP 126/79 12/30/17 08:00 Pulse Ox 98 12/30/17 08:00 - Labs Result Diagrams: 12/29/17 17:51 12/29/17 17:51 Labs: Laboratory Results - last 24 hr 12/29/17 12/29/17 12/29/17 17:51 17:51 18:12 WBC 10.6 RBC 4.97 Hgb 13.8 Hct 42.1 MCV 84.7 D MCH 27.7 MCHC 32.8 L RDW 14.3 Plt Count 238 D MPV 9.9 Neut % (Auto) 61.0 Lymph % (Auto) 29.6 [place] % (Auto) 6.0 Eos % (Auto) 2.4 Baso % (Auto) 1.0 Neut # (Auto) 6.5 Lymph # (Auto) 3.1 [place] # (Auto) 0.6 Eos # (Auto) 0.3 Baso # (Auto) 0.1 ESR 10 pO2 36 VBG pH 7.41 VBG pCO2 47 VBG HCO3 27.5 VBG Total CO2 31.2 H VBG O2 Sat (Calc) 72.6 H VBG Base Excess 4.3 H VBG Potassium 3.5 L Glucose 97 Lactate 0.8 Sodium 139 137.0 Potassium 3.8 Chloride 98 106.0 Carbon Dioxide 28 Anion Gap 16 BUN 19 Creatinine 0.8 Est GFR ( Amer) > 60 Est GFR (Non-Af Amer) > 60 Random Glucose 88 Calcium 9.7 Total Bilirubin 0.8 AST 62 H D ALT 60 Alkaline Phosphatase 104 Total Protein 8.6 H Albumin 4.5 Globulin 4.1 H Albumin/Globulin Ratio 1.1 Venous Blood Potassium 3.5 L Urine Color Urine Clarity Urine pH Ur Specific [place] Urine Protein Urine Glucose (UA) Urine Ketones Urine Blood Urine Nitrate Urine Bilirubin Urine Urobilinogen Ur Leukocyte Esterase Urine WBC (Auto) Urine RBC (Auto) Ur Squamous Epith Cells Urine Opiates Screen Urine Methadone Screen Ur Barbiturates Screen Ur Phencyclidine Scrn Ur Amphetamines Screen U Benzodiazepines Scrn U Oth Cocaine Metabols U Cannabinoids Screen Alcohol, Quantitative < 10 12/29/17 12/29/17 19:29 19:29 WBC RBC Hgb Hct MCV MCH MCHC RDW Plt Count MPV Neut % (Auto) Lymph % (Auto) [place] % (Auto) Eos % (Auto) Baso % (Auto) Neut # (Auto) Lymph # (Auto) [place] # (Auto) Eos # (Auto) Baso # (Auto) ESR pO2 VBG pH VBG pCO2 VBG HCO3 VBG Total CO2 VBG O2 Sat (Calc) VBG Base Excess VBG Potassium Glucose Lactate Sodium Potassium Chloride Carbon Dioxide Anion Gap BUN Creatinine Est GFR ( Amer) Est GFR (Non-Af Amer) Random Glucose Calcium Total Bilirubin AST ALT Alkaline Phosphatase Total Protein Albumin Globulin Albumin/Globulin Ratio Venous Blood Potassium Urine Color [place] Urine Clarity Hazy Urine pH 5.0 Ur Specific [place] 1.027 Urine Protein Negative Urine Glucose (UA) Normal Urine Ketones Negative Urine Blood Negative Urine Nitrate Negative Urine Bilirubin Negative Urine Urobilinogen 4.0 Ur Leukocyte Esterase Neg Urine WBC (Auto) < 1 Urine RBC (Auto) 2 Ur Squamous Epith Cells < 1 Urine Opiates Screen Negative Urine Methadone Screen Negative Ur Barbiturates Screen Negative Ur Phencyclidine Scrn Negative Ur Amphetamines Screen Negative U Benzodiazepines Scrn Positive U Oth Cocaine Metabols Negative U Cannabinoids Screen Positive H Alcohol, Quantitative - Impressions Impression: Xrays- revealinadequate fixation of distal fibula fx with invasion of the fibula with the distal interlocking screw from tibia displaced distal 1/3 tibial shaft fx fixed with interlocking intramedullary braden/ Assessment & Plan - Assessment and Plan (Free Text) Assessment: A- mild cellulitis, secondary to ORIF displaced distal 1/3 tibia fx/improper fixation of distal fibula fx P- CT scan IV abios per ID consult pt is clinically depressed, spontaneously breaks int tears during course of encounter possibility of surgical fixation of the fibula after cellulitis has resolved
--- NOTE | 2017-12-30 13:24 | CT ---
PROCEDURE: CT right lower extremity HISTORY: malunion fx r/o infection COMPARISON: Not available TECHNIQUE: 2.5 mm contiguous axial sections were acquired through the distal tibia and fibula as well as ankle and mid and hindfoot. Sagittal and coronal images were reformatted from the axial scan. FINDINGS: The patient is status post ORIF of a comminuted distal tibial diaphysis fracture. The hardware appears intact. There is minimal displacement of fracture fragments about this tibial fracture. There is a small amount of callus seen about the fracture. There is a comminuted distal fibular fracture, again involving the diaphysis, exclusively above the level of the plafond. There is a small amount of callus seen about the fibular fracture. There is mild displacement of some small fragments at the fibular fracture. There is no osseous erosion or periosteal reaction to suggest osteomyelitis. However, please note that this is an insensitive examination for detection of osteomyelitis. There is no significant soft tissue swelling. There is no abscess identified. There is no subcutaneous emphysema. IMPRESSION: Status post ORIF distal tibial fracture. Healing distal tibial and distal fibular diaphyseal fractures, with callus seen about both fractures. No evidence of abscess. No gross evidence of osteomyelitis. See above.
--- NOTE | 2017-12-30 16:02 | CP.PCM.CON ---
History of Present Illness - History of Present Illness History of Present Illness: 2 yo male sustained a fall down stairs on ;pt transported by ambulance to [facility]. PT undrwent ORIF displced distal 1/3 tibia fx. Pt now present with pain, ertyhema and rstricted ROM R ankle.. Xrays reveal adequate fixation of the tibia, but deformity and incomplete fixation of the fibula fx. Pt presents with mild clinical cellulitis. - Medical History PMH: Anxiety, Bronchitis, COPD (Chronic bronchitis), Hepatitis, Pneumonia Other Surgeries: ORIF right tib/fib 11/28/17 - [facility] Procedures DETOXIFICATION SERVICES FOR SUBSTANCE ABUSE TREATMENT (05/26/16) GROUP PSYCHOTHERAPY (05/26/16) LINEAR REP LID LACER (07/03/15) SUTURE OF LIP LACERATION (07/03/15) Review of Systems - Review of Systems All systems: reviewed and no additional remarkable complaints except - Constitutional Constitutional: As Per HPI - EENT Eyes: absent: As Per HPI, Blind Spots, Blurred Vision, Change in Vision, Decreased Night Vision, Diplopia, Discharge, Dry Eye, Exophthalmos, Floaters, Irritation, Itchy Eyes, Loss of Peripheral Vision, Pain, Photophobia, Requires Corrective Lenses, Sees Flashes, Spots in Vision, Tunnel Vision, Other Visual Disturbances, Loss of Vision, Other Ears: absent: As Per HPI, Decreased Hearing, Ear Discharge, Ear Pain, Tinnitus, Abnormal Hearing, Disequilibrium, Dizziness, Other Nose/Mouth/Throat: absent: As Per HPI, Epistaxis, Nasal Congestion, Nasal Discharge, Nasal Obstruction, Nasal Trauma, Nose Pain, Post Nasal Drip, Sinus Pain, Sinus Pressure, Bleeding Gums, Change in Voice, Dental Pain, Dry Mouth, Dysphagia, Halitosis, Hoarsness, Lip Swelling, Mouth Lesions, Mouth Pain, Odynophagia, Sore Throat, Throat Swelling, Tongue Swelling, Facial Pain, Neck Pain, Neck Mass, Other - Cardiovascular Cardiovascular: absent: As Per HPI, Acrocyanosis, Chest Pain, Chest Pain at Rest , Chest Pain with Activity, Claudication, Diaphoresis, Dyspnea, Dyspnea on Exertion, Edema, Irregular Heart Rhythm, Pain Radiating to Arm/Neck/Jaw, Leg Edema, Leg Ulcers, Lightheadedness, Orthopnea, Palpitations, Paroxysmal Nocturnal Dyspnea, Pedal Edema, Radiating Pain, Rapid Heart Rate, Slow Heart Rate, Syncope, Other - Respiratory Respiratory: absent: As Per HPI, Cough, Dyspnea, Hemoptysis, Dyspnea on Exertion , Wheezing, Snoring, Stridor, Pain on Inspiration, Chest Congestion, Excessive Mucous Production, Change in Mucous Color, Pain with Coughing, Other - Gastrointestinal Gastrointestinal: absent: As Per HPI, Abdominal Pain, Belching, Bloating, Change in Bowel Habits, Change in Stool Character, Coffee Ground Emesis, Constipation, Cramping, Diarrhea, Dyspepsia, Dysphagia, Early Satiety, Excessive Flatus, Fecal Incontinence, Heartburn, Hematemesis, Hematochezia, Loose Stools, Melena, Nausea, Odynophagia, Temesmus, Vomiting, Other - Genitourinary Genitourinary: absent: As Per HPI, Change in Urinary Stream, Difficulty Urinating, Dysuria, Flank Pain, Hematuria, Pyuria, Nocturia, Urinary Incontinence, Urinary Frequency, Urinary Hesitance, Urinary Urgency, Voiding Freq/Small Amts, Freq UTI, Hx Renal/Bladder Calculi, Hx /Renal Surgery, Bladder Distension, Other - Musculoskeletal Musculoskeletal: As Per HPI - Integumentary Integumentary: As Per HPI - Neurological Neurological: absent: As Per HPI, Abnormal Gait, Abnormal Hearing, Abnormal Movements, Abnormal Speech, Behavioral Changes, Burning Sensations, Confusion, Convulsions, Disequilibrium, Dizziness, Numbness, Focal Weakness, Frequent Falls , Headaches, Lack of Coordination, Loss of Vision, Memory Loss, Paresthesias, Radicular Pain, Restless Legs, Sensory Deficit, Syncope, Tingling, Tremor, Vertigo, Weakness, Other Visual Disturbances, Other - Psychiatric Psychiatric: absent: As Per HPI, Abnormal Sleep Pattern, Anhedonia, Anxiety, Auditory Hallucinations, Behavioral Changes, Change in Appetite, Change in Libido, Confusion, Depression, Difficulty Concentrating, Hallucinations, Homicidal Ideation, Hopelessness, Irritability, Memory Loss, Mood Swings, Panic Attacks, Paranoia, Suicidal Ideation, Visual Hallucinations, Tactile Hallucinations, Other - Endocrine Endocrine: absent: As Per HPI, Change in Body Appearance, Change in Libido, Cold Intolorance, Deepening of Voice, Excessive Sweating, Fatigue, Flushing, Heat Intolorance, Increase in Ring/Shoe/Hat Size, Palpitations, Polydipsia, Polyphagia, Polyuria, Other - Hematologic/Lymphatic Hematologic: absent: As Per HPI, Easy Bleeding, Easy Bruising, Lymphadenopathy, Other Past Patient History - Infectious Disease Hx of Infectious Diseases: None - Past Medical History & Family History Past Medical History?: Yes - Past Social History Smoking Status: Light Smoker < 10 Cigarettes Daily - CARDIAC Hx Cardiac Disorders: (Patient denied) Hx Hypertension: (Patient denied) - PULMONARY Hx Bronchitis: Yes Hx Chronic Obstructive Pulmonary Disease (COPD): Yes (Chronic bronchitis) Hx Pneumonia: Yes - NEUROLOGICAL HX Cerebrovascular Accident: (Patient denied) Hx Seizures: (Patient denied) - HEENT Hx HEENT Problems: Yes Other/Comment: " defect on L eye,Blurry Vision " - RENAL Hx Chronic Kidney Disease: No - ENDOCRINE/METABOLIC Hx Endocrine Disorders: No - HEMATOLOGICAL/ONCOLOGICAL Hx Cancer: (Patient denied) Hx Human Immunodeficiency Virus (HIV): (Patient denied) - INTEGUMENTARY Hx Dermatological Problems: No - MUSCULOSKELETAL/RHEUMATOLOGICAL Hx Falls: Yes - GASTROINTESTINAL Hx Gastrointestinal Disorders: No - GENITOURINARY/GYNECOLOGICAL Hx Sexually Transmitted Disorders: (Patient denied) - PSYCHIATRIC Hx Substance Use: No - SURGICAL HISTORY Hx Surgeries: Yes Hx Orthopedic Surgery: Yes (R leg 11/28/17) Other/Comment: Surgery on L shoulder 15. years ago from injury", a big TV fell on my Shoulder" - ANESTHESIA Hx Anesthesia: Yes Hx Anesthesia Reactions: No Hx Malignant Hyperthermia: No Meds Allergies/Adverse Reactions: Allergies Allergy/AdvReac Type Severity Reaction Status Date / Time No Known Allergies Allergy Verified 12/22/17 18:40 - Medications Medications: Current Medications Enoxaparin Sodium (Lovenox) 40 mg SC DAILY [facility] Last Admin: 12/30/17 09:44 Dose: 40 mg Escitalopram Oxalate (Lexapro) 10 mg PO DAILY [facility] Gabapentin (Neurontin) 300 mg PO BID [facility] Last Admin: 12/30/17 11:42 Dose: 300 mg Cefepime HCl (Maxipime Iv 1 Gm Premix) 1 gm in 50 mls @ 100 mls/hr IVPB ONCE ELLIOTT PRN Reason: Protocol Piperacillin Sod/Tazobactam Sod (Zosyn 3.375 Gm Iv Premix) 3.375 gm in 50 mls @ 100 mls/hr IVPB Q6H ELLIOTT PRN Reason: Protocol Last Admin: 12/30/17 14:16 Dose: 100 mls/hr Vancomycin/Sodium Chloride (Vancomycin 1 Gm/Ns 200 Ml) 1 gm in 200 mls @ 133.333 mls/hr IVPB Q12H ELLIOTT PRN Reason: Protocol Last Admin: 12/30/17 09:44 Dose: 133.333 mls/hr Oxycodone/Acetaminophen (Percocet 5/325 Mg Tab) 2 tab PO Q4H PRN PRN Reason: Pain, moderate (4-7) Stop: 01/02/18 07:58 Last Admin: 12/30/17 14:16 Dose: 2 tab Trazodone HCl (Desyrel) 100 mg PO HS [facility] Physical Exam - Constitutional Appears: Non-toxic, Chronically Ill - Head Exam Head Exam: NORMOCEPHALIC - Eye Exam Eye Exam: PERRL. absent: Scleral icterus - ENT Exam ENT Exam: Mucous Membranes Dry - Neck Exam Neck exam: Negative for: Lymphadenopathy - Respiratory Exam Respiratory Exam: Decreased Breath Sounds, Rhonchi - Cardiovascular Exam Cardiovascular Exam: REGULAR RHYTHM, +S1, +S2 - GI/Abdominal Exam GI & Abdominal Exam: Diminished Bowel Sounds, Soft. absent: Tenderness - Rectal Exam Rectal Exam: Deferred - Exam Exam: NORMAL INSPECTION - Extremities Exam Extremities exam: Positive for: pedal edema, tenderness, pedal pulses present. Negative for: calf tenderness Additional comments: cellulities RLE deformity RLE - Back Exam Back exam: absent: CVA tenderness (L), CVA tenderness (R) - Neurological Exam Neurological exam: Alert, CN II-XII Intact, Oriented x3, Reflexes Normal - Psychiatric Exam Psychiatric exam: Depressed - Skin Skin Exam: Dry Results - Vital Signs Recent Vital Signs: Last Vital Signs Temp 97.9 F 12/30/17 08:00 Pulse 80 12/30/17 08:00 Resp 20 12/30/17 08:00 BP 126/79 12/30/17 08:00 Pulse Ox 98 12/30/17 08:00 - Labs Result Diagrams: 12/29/17 17:51 12/29/17 17:51 Labs: Laboratory Results - last 24 hr 12/29/17 12/29/17 12/29/17 17:51 17:51 18:12 WBC 10.6 RBC 4.97 Hgb 13.8 Hct 42.1 MCV 84.7 D MCH 27.7 MCHC 32.8 L RDW 14.3 Plt Count 238 D MPV 9.9 Neut % (Auto) 61.0 Lymph % (Auto) 29.6 [place] % (Auto) 6.0 Eos % (Auto) 2.4 Baso % (Auto) 1.0 Neut # (Auto) 6.5 Lymph # (Auto) 3.1 [place] # (Auto) 0.6 Eos # (Auto) 0.3 Baso # (Auto) 0.1 ESR 10 pO2 36 VBG pH 7.41 VBG pCO2 47 VBG HCO3 27.5 VBG Total CO2 31.2 H VBG O2 Sat (Calc) 72.6 H VBG Base Excess 4.3 H VBG Potassium 3.5 L Glucose 97 Lactate 0.8 Sodium 139 137.0 Potassium 3.8 Chloride 98 106.0 Carbon Dioxide 28 Anion Gap 16 BUN 19 Creatinine 0.8 Est GFR ( Amer) > 60 Est GFR (Non-Af Amer) > 60 Random Glucose 88 Calcium 9.7 Total Bilirubin 0.8 AST 62 H D ALT 60 Alkaline Phosphatase 104 Total Protein 8.6 H Albumin 4.5 Globulin 4.1 H Albumin/Globulin Ratio 1.1 Venous Blood Potassium 3.5 L Urine Color Urine Clarity Urine pH Ur Specific [place] Urine Protein Urine Glucose (UA) Urine Ketones Urine Blood Urine Nitrate Urine Bilirubin Urine Urobilinogen Ur Leukocyte Esterase Urine WBC (Auto) Urine RBC (Auto) Ur Squamous Epith Cells Urine Opiates Screen Urine Methadone Screen Ur Barbiturates Screen Ur Phencyclidine Scrn Ur Amphetamines Screen U Benzodiazepines Scrn U Oth Cocaine Metabols U Cannabinoids Screen Alcohol, Quantitative < 10 18 12/29/17 19:29 19:29 WBC RBC Hgb Hct MCV MCH MCHC RDW Plt Count MPV Neut % (Auto) Lymph % (Auto) [place] % (Auto) Eos % (Auto) Baso % (Auto) Neut # (Auto) Lymph # (Auto) [place] # (Auto) Eos # (Auto) Baso # (Auto) ESR pO2 VBG pH VBG pCO2 VBG HCO3 VBG Total CO2 VBG O2 Sat (Calc) VBG Base Excess VBG Potassium Glucose Lactate Sodium Potassium Chloride Carbon Dioxide Anion Gap BUN Creatinine Est GFR ( Amer) Est GFR (Non-Af Amer) Random Glucose Calcium Total Bilirubin AST ALT Alkaline Phosphatase Total Protein Albumin Globulin Albumin/Globulin Ratio Venous Blood Potassium Urine Color [place] Urine Clarity Hazy Urine pH 5.0 Ur Specific [place] 1.027 Urine Protein Negative Urine Glucose (UA) Normal Urine Ketones Negative Urine Blood Negative Urine Nitrate Negative Urine Bilirubin Negative Urine Urobilinogen 4.0 Ur Leukocyte Esterase Neg Urine WBC (Auto) < 1 Urine RBC (Auto) 2 Ur Squamous Epith Cells < 1 Urine Opiates Screen Negative Urine Methadone Screen Negative Ur Barbiturates Screen Negative Ur Phencyclidine Scrn Negative Ur Amphetamines Screen Negative U Benzodiazepines Scrn Positive U Oth Cocaine Metabols Negative U Cannabinoids Screen Positive H Alcohol, Quantitative Assessment & Plan (1) Cellulitis Status: Acute (2) Alcohol abuse with intoxication Status: Acute (3) Hepatitis C reactive Status: Acute (4) Polysubstance (including opioids) dependence w/o physiol dependence Status: Acute (5) Tibia/fibula fracture Status: Acute - Assessment and Plan (Free Text) Assessment: cont IV antibiotics may need OR / repair of Fx
[2017-12-31] MEDS: Piperacill/Tazo 3.375gm in Dex 3.375 GM/50 ML BAG IVPB SCH ×4 (02:30→20:32)
[2017-12-31] MEDS: Oxycodone/Acetaminophen 5/325 mg Tab PO PRN ×5 (02:39→21:07)
[2017-12-31] MEDS: Vancomycin 1 gm/NS 200 ml 1 GM/200 ML BAG IVPB SCH ×2 (10:05→21:07)
[2017-12-31] MEDS: Enoxaparin 40 mg Syringe SC SCH (10:06)
--- NOTE | 2017-12-31 11:40 | PCM.PYCHPN ---
Psychiatric Progress Note - Psychiatric Progress Note Patient seen today, length of contact: 16 min Patient Chief Complaint: "I couldn't sleep" Problems Identified/Issues Discussed: The pt is seen, chart reviewed, case discussed with staff. The pt is compliant with medications and reports no side-effects. However, he couldn't sleep well; Ambien added Symptoms are improving but needs more time to stabilize. After care discussed, support and psychoeducation given. He wants to go to a [facility] to "regain" his strength and "work again" He is not suicidal today and contracts for safety - still feels depressed, though. Medication Change: Yes (add amien, increase lexapro) Medical Record Reviewed: Yes Mental Status Examination - Cognitive Function Orientation: Person, Place, Situation, Time Memory: Impaired Attention: Poor Concentration: Poor Association: WNL Fund of Knowledge: Poor - Mood Mood: Depressed (tearful at times), Anxious - Affect Affect: Constricted - Speech Speech: Appropriate - Formal Thought Process Formal Thought Process: No Impairment - Suicidal Ideation Suicidal Ideation: No - Homicidal Ideation Homicidal Ideation: No Goal/Treatment Plan - Goal/Treatment Plan Need for Continued Stay: Discharge may exacerbated symptoms, Severe functional impairment Progress Toward Problem(s) and Goals/Treatment Plan: Lexapro for depression Gabapentin for anxiety All risks, benefits and alternatives of the meds discussed, and the pt agreed and understood. CBT for depression Psychoeducation and support daily Encourage compliance with meds and after care Refer to outpatient program Teach healthy lifestyle methods, i.e. diet, exercise, meditation Smoking cessation and patch if needed Patient can be transferred to psychiatry when medically cleared.
--- NOTE | 2017-12-31 12:16 | CP.PCM.PN ---
Subjective - Date & Time of Evaluation Date of Evaluation: 12/31/17 Time of Evaluation: 08:00 - Subjective Subjective: CT neg IV antibiotics in progress Ortho on board cont rx consider ceretec scan Objective - Vital Signs/Intake and Output Vital Signs (last 24 hours): Temp Pulse Resp BP Pulse Ox 97.6 F 50 L 18 114/67 96 12/31/17 07:05 12/31/17 07:05 12/31/17 07:05 12/31/17 07:05 12/31/17 07:05 Intake and Output: 12/31/17 12/31/17 06:59 18:59 Intake Total 600 Output Total 400 Balance 200 - Medications Medications: Current Medications Enoxaparin Sodium (Lovenox) 40 mg SC DAILY [facility] Last Admin: 12/31/17 10:06 Dose: 40 mg Escitalopram Oxalate (Lexapro) 15 mg PO DAILY [facility] Gabapentin (Neurontin) 300 mg PO BID [facility] Last Admin: 12/31/17 10:06 Dose: 300 mg Cefepime HCl (Maxipime Iv 1 Gm Premix) 1 gm in 50 mls @ 100 mls/hr IVPB ONCE [facility] PRN Reason: Protocol Piperacillin Sod/Tazobactam Sod (Zosyn 3.375 Gm Iv Premix) 3.375 gm in 50 mls @ 100 mls/hr IVPB Q6H [facility] PRN Reason: Protocol Last Admin: 12/31/17 08:11 Dose: 100 mls/hr Vancomycin/Sodium Chloride (Vancomycin 1 Gm/Ns 200 Ml) 1 gm in 200 mls @ 133.333 mls/hr IVPB Q12H [facility] PRN Reason: Protocol Last Admin: 12/31/17 10:05 Dose: 133.333 mls/hr Oxycodone/Acetaminophen (Percocet 5/325 Mg Tab) 2 tab PO Q4H PRN PRN Reason: Pain, moderate (4-7) Stop: 01/02/18 07:58 Last Admin: 12/31/17 08:05 Dose: 2 tab Trazodone HCl (Desyrel) 100 mg PO HS [facility] Last Admin: 12/30/17 21:57 Dose: 100 mg - Labs Labs: 12/29/17 17:51 12/29/17 17:51 - Constitutional Appears: Non-toxic, Chronically Ill - Head Exam Head Exam: NORMOCEPHALIC - Eye Exam Eye Exam: PERRL. absent: Scleral icterus - ENT Exam ENT Exam: Mucous Membranes Dry - Neck Exam Neck Exam: absent: Lymphadenopathy - Respiratory Exam Respiratory Exam: Decreased Breath Sounds, Clear to Ausculation Bilateral - Cardiovascular Exam Cardiovascular Exam: REGULAR RHYTHM, +S1, +S2 - GI/Abdominal Exam GI & Abdominal Exam: Distended, Soft. absent: Tenderness - Rectal Exam Rectal Exam: Deferred - Exam Exam: NORMAL INSPECTION - Extremities Exam Extremities Exam: Calf Tenderness, Pedal Edema, Tenderness - Back Exam Back Exam: absent: CVA tenderness (L) Assessment and Plan (1) Cellulitis Status: Acute (2) Alcohol abuse with intoxication Status: Acute (3) Hepatitis C reactive Status: Acute (4) Polysubstance (including opioids) dependence w/o physiol dependence Status: Acute (5) Tibia/fibula fracture Status: Acute
--- NOTE | 2017-12-31 13:10 | HP ---
HISTORY OF PRESENT ILLNESS: The patient is a 52-year-old male with chief complaint of cellulitis of leg. The patient had a fracture of ankle. The patient had surgery two days ago. PHYSICAL EXAMINATION: GENERAL: The patient is awake, alert, and oriented x3. VITAL SIGNS: Temperature 98, pulse 90. HEENT: Within normal limits. NECK: Supple. HEART: Regular. CHEST: Symmetrical. ABDOMEN: Soft. EXTREMITIES: Cellulitis in the lower extremity. IMPRESSION: The patient in bedrest, intravenous antibiotic. . Andrew Shah MD
--- NOTE | 2017-12-31 13:36 | CP.PCM.PN ---
Subjective - Date & Time of Evaluation Date of Evaluation: 12/31/17 Time of Evaluation: 10:20 - Subjective Subjective: PGY-[address] Shah Patient seen and examined at bedside. No acute events overnight. Patient reports his left leg pain and swelling has been improving but still painful. Patient denies having fever, chills, headache, shortness of breath, chest pain, nausea, or vomiting. Objective - Vital Signs/Intake and Output Vital Signs (last 24 hours): Temp Pulse Resp BP Pulse Ox 97.6 F 50 L 18 114/67 96 12/31/17 07:05 12/31/17 07:05 12/31/17 07:05 12/31/17 07:05 12/31/17 07:05 Intake and Output: 12/31/17 12/31/17 06:59 18:59 Intake Total 600 Output Total 400 Balance 200 - Medications Medications: Current Medications Enoxaparin Sodium (Lovenox) 40 mg SC DAILY [facility] Last Admin: 12/31/17 10:06 Dose: 40 mg Escitalopram Oxalate (Lexapro) 15 mg PO DAILY [facility] Gabapentin (Neurontin) 300 mg PO BID [facility] Last Admin: 12/31/17 10:06 Dose: 300 mg Cefepime HCl (Maxipime Iv 1 Gm Premix) 1 gm in 50 mls @ 100 mls/hr IVPB ONCE [facility] PRN Reason: Protocol Piperacillin Sod/Tazobactam Sod (Zosyn 3.375 Gm Iv Premix) 3.375 gm in 50 mls @ 100 mls/hr IVPB Q6H [facility] PRN Reason: Protocol Last Admin: 12/31/17 08:11 Dose: 100 mls/hr Vancomycin/Sodium Chloride (Vancomycin 1 Gm/Ns 200 Ml) 1 gm in 200 mls @ 133.333 mls/hr IVPB Q12H [facility] PRN Reason: Protocol Last Admin: 12/31/17 10:05 Dose: 133.333 mls/hr Oxycodone/Acetaminophen (Percocet 5/325 Mg Tab) 2 tab PO Q4H [facility] PRN Reason: Pain, moderate (4-7) Stop: 01/02/18 07:58 Last Admin: 12/31/17 12:56 Dose: 2 tab Trazodone HCl (Desyrel) 100 mg PO HS [facility] Last Admin: 12/30/17 21:57 Dose: 100 mg - Labs Labs: 12/29/17 17:51 12/29/17 17:51 - Constitutional Appears: Non-toxic, No Acute Distress - Head Exam Head Exam: ATRAUMATIC, NORMAL INSPECTION - Eye Exam Eye Exam: EOMI - ENT Exam ENT Exam: Mucous Membranes Moist - Neck Exam Neck Exam: Full ROM, Normal Inspection. absent: Lymphadenopathy - Respiratory Exam Respiratory Exam: Clear to Ausculation Bilateral, NORMAL BREATHING PATTERN. absent: Respiratory Distress - Cardiovascular Exam Cardiovascular Exam: REGULAR RHYTHM, +S1, +S2. absent: Murmur - GI/Abdominal Exam GI & Abdominal Exam: Soft, Normal Bowel Sounds. absent: Tenderness - Extremities Exam Extremities Exam: Joint Swelling, Normal Capillary Refill, Tenderness Additional comments: Right lower leg tenderness, mildly erythematous and swelling, multiple uclerations, dry, no discharge - Neurological Exam Neurological Exam: Alert, Awake, Oriented x3 - Psychiatric Exam Psychiatric exam: Normal Affect, Normal Mood - Skin Skin Exam: Dry, Warm Assessment and Plan - Assessment and Plan (Free Text) Assessment: Right lower extremity cellulitis -Swelling improving -Afebrile, no leukocytosis -ID consult, Dr. Galvan help appreciated -Zosyn 3.375mg IV Q6 -Vancomycin 1gm IV Q12h -Follow up doppler for DVT Right Tibia fibula fracture -S/P ORIF on 11/28/17 -CT showed Healing distal tibial and distal fibular diaphyseal fractures, with callus seen about both fractures. No evidence of abscess. No gross evidence of osteomyelitis. See report -Follow orthopedic recommendations -Percocet 2 tab PO Q4h prn Depression -Lexapro 10mg daily -DC 1 on 1 -Inpatient psych once medically cleared -Follow psychiatry recommendations Hx Hepatitis C -Positive for hep C in 2014, unsure if it was treated -Follow up hep C ab Prophylactic measures -Protonix -Lovenox -PT/OT Discussed with attending Dr. Shah
--- NOTE | 2017-12-31 14:39 | VASCLAB ---
PROCEDURE: Right Lower Extremity Venous Duplex Exam. HISTORY: RLE PAIN, SWELLING, R/O DVT PRIORS: None. TECHNIQUE: Right common femoral, femoral, popliteal and posterior tibial, peroneal and great saphenous veins were evaluated. Flow was assessed with color Doppler, compressibility, assessment of phasic flow and augmentation response. Report prepared by KEILA Armstrong FINDINGS: RIGHT: 1. Common Femoral Vein: 1.1. Compressibility - Fully compressible: Thrombus - None: Flow - Phasic: Augmentation -Normal: Reflux - None. 2. Femoral Vein: 2.1. Compressibility - Fully compressible: Thrombus - None: Flow - Phasic: Augmentation -Normal: Reflux - None. 3. Popliteal Vein: 3.1. Compressibility - Fully compressible: Thrombus - None: Flow - Phasic: Augmentation -Normal: Reflux - None. 4. Posterior Tibial Vein: 4.1. Compressibility - Fully compressible: Thrombus - None: Flow - Phasic: Augmentation -Normal: Reflux - None. 5. Peroneal Vein: 5.1. Compressibility - Fully compressible: Thrombus - None: Flow - Phasic: Augmentation -Normal: Reflux - None. 6. Great Saphenous Vein: 6.1. Compressibility - Fully compressible: Thrombus -None: Flow - Phasic: Augmentation - Normal: Reflux - None. OTHER FINDINGS: IMPRESSION: No evidence of deep or superficial vein thrombosis of the right lower extremity with excellent venous flow. Normal valve function noted of the right side. Normal venous flow noted in the left common femoral vein.
[2018-01-01] MEDS: Oxycodone/Acetaminophen 5/325 mg Tab PO PRN ×5 (02:18→21:23)
[2018-01-01] MEDS: Piperacill/Tazo 3.375gm in Dex 3.375 GM/50 ML BAG IVPB SCH ×4 (02:20→21:23)
--- NOTE | 2018-01-01 07:37 | CP.PCM.PN ---
Subjective - Date & Time of Evaluation Date of Evaluation: 12/31/17 Time of Evaluation: 11:00 - Subjective Subjective: Patient states his leg pain is improving. He admits that he didn't have a wheelchair and was walking on his right leg. He says he does not know the name of his surgeon, but says he fell on [employer] [employer]. He says there was a bleeding wound on his leg after the injury. He says the swelling pain and redness is much improved from admission. Denies CP/SOB/dizziness. Patient states he lost his job after this injury. Patient consents to release of medical records from [facility]. Ilya Null [address] [place] [address] [id number] [place] [id number] is surgeon. He states in operative note that it was Grade 1 open tib/fib fx. Date of admission and surgery per record is 11/30/2017. Review of Systems - Review of Systems All systems: reviewed and no additional remarkable complaints except - Constitutional Additional comments: no fever/chills - Cardiovascular Cardiovascular: As Per HPI - Respiratory Respiratory: As Per HPI - Gastrointestinal Gastrointestinal: UNREMARKABLE - Musculoskeletal Musculoskeletal: As Par HPI - Integumentary Integumentary: As Per HPI - Neurological Neurological: UNREMARKABLE - Hematologic/Lymphatic Hematologic: UNREMARKABLE Objective - Vital Signs/Intake and Output Vital Signs (last 24 hours): Temp Pulse Resp BP Pulse Ox 98.3 F 47 L 20 125/74 95 01/01/18 00:16 01/01/18 00:16 01/01/18 00:16 01/01/18 00:16 01/01/18 00:16 Intake and Output: 01/01/18 01/01/18 06:59 18:59 Intake Total 290 Output Total 1100 Balance -810 - Medications Medications: Current Medications Diphenhydramine HCl (Benadryl) 50 mg PO Q8 PRN PRN Reason: Itching / Pruritus Last Admin: 12/31/17 14:30 Dose: 50 mg Enoxaparin Sodium (Lovenox) 40 mg SC DAILY [facility] Last Admin: 12/31/17 10:06 Dose: 40 mg Escitalopram Oxalate (Lexapro) 15 mg PO DAILY [facility] Gabapentin (Neurontin) 300 mg PO BID [facility] Last Admin: 12/31/17 17:32 Dose: 300 mg Cefepime HCl (Maxipime Iv 1 Gm Premix) 1 gm in 50 mls @ 100 mls/hr IVPB ONCE [facility] PRN Reason: Protocol Piperacillin Sod/Tazobactam Sod (Zosyn 3.375 Gm Iv Premix) 3.375 gm in 50 mls @ 100 mls/hr IVPB Q6H [facility] PRN Reason: Protocol Last Admin: 01/01/18 02:20 Dose: 100 mls/hr Vancomycin/Sodium Chloride (Vancomycin 1 Gm/Ns 200 Ml) 1 gm in 200 mls @ 133.333 mls/hr IVPB Q12H [facility] PRN Reason: Protocol Last Admin: 12/31/17 21:07 Dose: 133.333 mls/hr Oxycodone/Acetaminophen (Percocet 5/325 Mg Tab) 2 tab PO Q4H PRN PRN Reason: Pain, moderate (4-7) Stop: 01/02/18 07:58 Last Admin: 01/01/18 06:31 Dose: 2 tab Trazodone HCl (Desyrel) 100 mg PO HS [facility] Last Admin: 12/31/17 21:08 Dose: 100 mg Zolpidem Tartrate (Ambien) 5 mg PO HS PRN PRN Reason: Insomnia Last Admin: 01/01/18 00:17 Dose: 5 mg - Labs Labs: 12/29/17 17:51 12/29/17 17:51 - Constitutional Appears: Well, No Acute Distress - Head Exam Head Exam: ATRAUMATIC - Neck Exam Neck Exam: Full ROM, Normal Inspection - Respiratory Exam Respiratory Exam: NORMAL BREATHING PATTERN - Cardiovascular Exam Additional comments: +DP/PT pulses - Extremities Exam Additional comments: mild erythema around open fracture wound. Noted swellnig to RLE, foot elevated, encouraged ankle pumps. Sensation intact. Incisions dry. - Neurological Exam Neurological Exam: Alert, Awake, Oriented x3 Neuro motor strength exam: Right Lower Extremity: 5 (ankle/toes) - Psychiatric Exam Psychiatric exam: Normal Affect, Normal Mood - Skin Skin Exam: Dry, Intact, Normal Color, Warm Assessment and Plan (1) Cellulitis, wound, post-operative Assessment & Plan: 4 weeks s/p I&D/IM nail right tibia/fibular fx -antibiotics per ID, improving -PT/OT, NWB at this time -imaging reviewed, small amount of callus noted, more to fibula -gait training -d/c planning -patient instructed he must follow up with orthopedic surgeon Dr. Null upon discharge (patient has not followed up since surgery) -d/w Dr. Tijerina, agrees with above Status: Acute
[2018-01-01 08:32] LABS: BASO # 0.1 K/uL (0.0-0.2); BASO % 0.9 % (0.0-2.0); EOS # 0.3 K/uL (0.0-0.7); EOS % 4.5 % (0.0-4.0); HEMOGLOBIN 12.5 g/dL (12.0-18.0); LYMPH # 2.4 K/uL (1.0-4.3); LYMPH % 38.8 % (20.0-40.0); MEAN CELL VOLUME 84.8 fL (80.0-94.0); MEAN CORPUSCULAR HEMOGLOBIN 27.9 pg (27.0-31.0); MEAN CORPUSCULAR HGB CONC 32.9 g/dL (33.0-37.0); MEAN PLATELET VOLUME 9.6 fL (7.2-11.7); MONO # 0.7 K/uL (0.0-0.8); MONO % 11.4 % (0.0-10.0); NEUT # 2.8 K/uL (1.8-7.0); NEUT % 44.4 % (50.0-75.0); NRBC % 0.1 % (0.0-2.0); RBC 4.49 Mil/uL (4.40-5.90); RED CELL DISTRIBUTION WIDTH 14.4 % (11.5-14.5); WHITE BLOOD COUNT 6.3 K/uL (4.8-10.8)
[2018-01-01 08:43] LABS: ALB/GLOB RATIO 1.1 (1.0-2.1); ALBUMIN 3.5 g/dL (3.5-5.0); ALT/SGPT 43 U/L (21-72); AST/SGOT 46 U/L (17-59); BLOOD UREA NITROGEN 14 mg/dL (9-20); GFR AFRICAN-AMERICAN > 60; GFR NON-AFRICAN AMERICAN > 60
[2018-01-01] MEDS ORDERED: Influenza Vaccine 60 mcg/0.5 mL SYR (4YR UP) IM ONE (10:00)
[2018-01-01] MEDS: Enoxaparin 40 mg Syringe SC SCH (10:21)
--- NOTE | 2018-01-01 12:06 | CP.PCM.PN ---
Subjective - Date & Time of Evaluation Date of Evaluation: 01/01/18 Time of Evaluation: 11:00 - Subjective Subjective: Patient states leg is improving. He says PT was difficult, but he was able to get around better with walker. He states he is maintaining NWB. Denies CP/SOB/ dizziness. Review of Systems - Review of Systems All systems: reviewed and no additional remarkable complaints except - Constitutional Additional comments: denies fever/chills - Cardiovascular Cardiovascular: UNREMARKABLE - Respiratory Respiratory: UNREMARKABLE - Gastrointestinal Gastrointestinal: UNREMARKABLE - Musculoskeletal Musculoskeletal: As Par HPI - Neurological Neurological: UNREMARKABLE - Hematologic/Lymphatic Hematologic: UNREMARKABLE Objective - Vital Signs/Intake and Output Vital Signs (last 24 hours): Temp Pulse Resp BP Pulse Ox 98.1 F 50 L 18 132/71 98 01/01/18 07:00 01/01/18 07:00 01/01/18 07:00 01/01/18 07:00 01/01/18 07:00 Intake and Output: 01/01/18 01/01/18 06:59 18:59 Intake Total 290 Output Total 1100 300 Balance -810 -300 - Medications Medications: Current Medications Diphenhydramine HCl (Benadryl) 50 mg PO Q8 PRN PRN Reason: Itching / Pruritus Last Admin: 12/31/17 14:30 Dose: 50 mg Enoxaparin Sodium (Lovenox) 40 mg SC DAILY [facility] Last Admin: 01/01/18 10:21 Dose: 40 mg Escitalopram Oxalate (Lexapro) 15 mg PO DAILY [facility] Last Admin: 01/01/18 10:20 Dose: 15 mg Gabapentin (Neurontin) 300 mg PO BID [facility] Last Admin: 01/01/18 10:21 Dose: 300 mg Cefepime HCl (Maxipime Iv 1 Gm Premix) 1 gm in 50 mls @ 100 mls/hr IVPB ONCE [facility] PRN Reason: Protocol Piperacillin Sod/Tazobactam Sod (Zosyn 3.375 Gm Iv Premix) 3.375 gm in 50 mls @ 100 mls/hr IVPB Q6H [facility] PRN Reason: Protocol Last Admin: 01/01/18 09:00 Dose: 100 mls/hr Vancomycin/Sodium Chloride (Vancomycin 1 Gm/Ns 200 Ml) 1 gm in 200 mls @ 133.333 mls/hr IVPB Q12H [facility] PRN Reason: Protocol Last Admin: 12/31/17 21:07 Dose: 133.333 mls/hr Oxycodone/Acetaminophen (Percocet 5/325 Mg Tab) 2 tab PO Q4H PRN PRN Reason: Pain, moderate (4-7) Stop: 01/02/18 07:58 Last Admin: 01/01/18 11:13 Dose: 2 tab Trazodone HCl (Desyrel) 100 mg PO HS [facility] Last Admin: 12/31/17 21:08 Dose: 100 mg Zolpidem Tartrate (Ambien) 5 mg PO HS PRN PRN Reason: Insomnia Last Admin: 01/01/18 00:17 Dose: 5 mg - Labs Labs: 01/01/18 08:15 01/01/18 08:15 - Constitutional Appears: Well, No Acute Distress - Head Exam Head Exam: ATRAUMATIC - Extremities Exam Additional comments: erythema resolved still noted swelling elevation encouraged foot of bed hitched +ROM ankle/toes calves soft NT neg homans - Neurological Exam Neurological Exam: Alert, Awake, Oriented x3 Neuro motor strength exam: Right Lower Extremity: 5 - Psychiatric Exam Psychiatric exam: Normal Affect, Normal Mood - Skin Skin Exam: Dry, Intact, Normal Color, Warm Assessment and Plan (1) Cellulitis, wound, post-operative Assessment & Plan: PT/OT VTE proph PT recommended rehab placement for ambulation training continue NWB elevation at all times in bed Patient must follow up with surgeon who did tibial nailing Ilya [address] [place] [id number] within 3 days of discharge without fail. Call for appt. Operative note on chart. d/w Dr. Tijerina, agrees with above ortho stable for d/c to rehab Status: Acute
--- NOTE | 2018-01-01 12:09 | CP.PCM.PN ---
Subjective - Date & Time of Evaluation Date of Evaluation: 01/01/18 Time of Evaluation: 10:00 - Subjective Subjective: leg improving iv rx to cont Objective - Vital Signs/Intake and Output Vital Signs (last 24 hours): Temp Pulse Resp BP Pulse Ox 98.1 F 50 L 18 132/71 98 01/01/18 07:00 01/01/18 07:00 01/01/18 07:00 01/01/18 07:00 01/01/18 07:00 Intake and Output: 01/01/18 01/01/18 06:59 18:59 Intake Total 290 Output Total 1100 300 Balance -810 -300 - Medications Medications: Current Medications Diphenhydramine HCl (Benadryl) 50 mg PO Q8 PRN PRN Reason: Itching / Pruritus Last Admin: 12/31/17 14:30 Dose: 50 mg Enoxaparin Sodium (Lovenox) 40 mg SC DAILY [facility] Last Admin: 01/01/18 10:21 Dose: 40 mg Escitalopram Oxalate (Lexapro) 15 mg PO DAILY [facility] Last Admin: 01/01/18 10:20 Dose: 15 mg Gabapentin (Neurontin) 300 mg PO BID [facility] Last Admin: 01/01/18 10:21 Dose: 300 mg Cefepime HCl (Maxipime Iv 1 Gm Premix) 1 gm in 50 mls @ 100 mls/hr IVPB ONCE [facility] PRN Reason: Protocol Piperacillin Sod/Tazobactam Sod (Zosyn 3.375 Gm Iv Premix) 3.375 gm in 50 mls @ 100 mls/hr IVPB Q6H [facility] PRN Reason: Protocol Last Admin: 01/01/18 09:00 Dose: 100 mls/hr Vancomycin/Sodium Chloride (Vancomycin 1 Gm/Ns 200 Ml) 1 gm in 200 mls @ 133.333 mls/hr IVPB Q12H [facility] PRN Reason: Protocol Last Admin: 12/31/17 21:07 Dose: 133.333 mls/hr Oxycodone/Acetaminophen (Percocet 5/325 Mg Tab) 2 tab PO Q4H PRN PRN Reason: Pain, moderate (4-7) Stop: 01/02/18 07:58 Last Admin: 01/01/18 11:13 Dose: 2 tab Trazodone HCl (Desyrel) 100 mg PO HS [facility] Last Admin: 12/31/17 21:08 Dose: 100 mg Zolpidem Tartrate (Ambien) 5 mg PO HS PRN PRN Reason: Insomnia Last Admin: 01/01/18 00:17 Dose: 5 mg - Labs Labs: 01/01/18 08:15 01/01/18 08:15 - Constitutional Appears: Non-toxic, Chronically Ill - Head Exam Head Exam: NORMOCEPHALIC - Eye Exam Eye Exam: PERRL - ENT Exam ENT Exam: Mucous Membranes Dry - Neck Exam Neck Exam: absent: Lymphadenopathy - Respiratory Exam Respiratory Exam: Decreased Breath Sounds - Cardiovascular Exam Cardiovascular Exam: REGULAR RHYTHM - GI/Abdominal Exam GI & Abdominal Exam: Distended, Soft - Rectal Exam Rectal Exam: Deferred Assessment and Plan (1) Cellulitis Status: Acute (2) Alcohol abuse with intoxication Status: Acute (3) Hepatitis C reactive Status: Acute (4) Polysubstance (including opioids) dependence w/o physiol dependence Status: Acute (5) Tibia/fibula fracture Status: Acute
--- NOTE | 2018-01-01 16:55 | CP.PCM.PN ---
Subjective - Date & Time of Evaluation Date of Evaluation: 01/01/18 Time of Evaluation: 09:40 - Subjective Subjective: Medicine progress note for Dr. Shah's service Patient seen and examined. Patient states he is maintaining non-weight bearing status to right leg. Patient states swelling in right leg has improved and pain is tolerable. Objective - Vital Signs/Intake and Output Vital Signs (last 24 hours): Temp Pulse Resp BP Pulse Ox 98.2 F 56 L 18 123/76 95 01/01/18 15:37 01/01/18 15:37 01/01/18 15:37 01/01/18 15:37 01/01/18 15:37 Intake and Output: 01/01/18 01/01/18 06:59 18:59 Intake Total 290 500 Output Total 1100 1500 Balance -810 -1000 - Medications Medications: Current Medications Diphenhydramine HCl (Benadryl) 50 mg PO Q8 PRN PRN Reason: Itching / Pruritus Last Admin: 12/31/17 14:30 Dose: 50 mg Enoxaparin Sodium (Lovenox) 40 mg SC [facility]ILY [facility] Last Admin: 01/01/18 10:21 Dose: 40 mg Escitalopram Oxalate (Lexapro) 15 mg PO DAILY [facility] Last Admin: 01/01/18 10:20 Dose: 15 mg Gabapentin (Neurontin) 300 mg PO BID [facility] Last Admin: 01/01/18 10:21 Dose: 300 mg Cefepime HCl (Maxipime Iv 1 Gm Premix) 1 gm in 50 mls @ 100 mls/hr IVPB ONCE [facility] PRN Reason: Protocol Piperacillin Sod/Tazobactam Sod (Zosyn 3.375 Gm Iv Premix) 3.375 gm in 50 mls @ 100 mls/hr IVPB Q6H [facility] PRN Reason: Protocol Last Admin: 01/01/18 14:11 Dose: 100 mls/hr Vancomycin/Sodium Chloride (Vancomycin 1 Gm/Ns 200 Ml) 1 gm in 200 mls @ 133.333 mls/hr IVPB Q12H [facility] PRN Reason: Protocol Last Admin: 12/31/17 21:07 Dose: 133.333 mls/hr Oxycodone/Acetaminophen (Percocet 5/325 Mg Tab) 2 tab PO Q4H PRN PRN Reason: Pain, moderate (4-7) Stop: 01/02/18 07:58 Last Admin: 01/01/18 16:14 Dose: 2 tab Trazodone HCl (Desyrel) 100 mg PO HS [facility] Last Admin: 12/31/17 21:08 Dose: 100 mg Zolpidem Tartrate (Ambien) 5 mg PO HS PRN PRN Reason: Insomnia Last Admin: 01/01/18 00:17 Dose: 5 mg - Labs Labs: 01/01/18 08:15 01/01/18 08:15 - Constitutional Appears: No Acute Distress - Head Exam Head Exam: ATRAUMATIC, NORMOCEPHALIC - Eye Exam Eye Exam: EOMI - ENT Exam ENT Exam: Mucous Membranes Moist - Respiratory Exam Respiratory Exam: Clear to Ausculation Bilateral, NORMAL BREATHING PATTERN - Cardiovascular Exam Cardiovascular Exam: +S1, +S2 - GI/Abdominal Exam GI & Abdominal Exam: Soft. absent: Tenderness - Extremities Exam Additional comments: right lower extremity with mild erythema and swelling - Neurological Exam Neurological Exam: Alert, Awake - Skin Skin Exam: Warm Assessment and Plan - Assessment and Plan (Free Text) Assessment: Right lower extremity cellulitis -Swelling improving- patient to keep foot elevated -Afebrile, no leukocytosis -ID consult, Dr. Galvan help appreciated -Zosyn 3.375mg IV Q6 -Vancomycin 1gm IV Q12h -Lower extremity venous dopppler negative for DVT Right Tibia fibula fracture -S/P ORIF [facility] Ilya Yuterrence [address] [place] [address] [phone] [place] [id number] is surgeon -patient is to maintain NWB to right leg and follow up with Dr. Null on discharge -CT showed Healing distal tibial and distal fibular diaphyseal fractures, with callus seen about both fractures. No evidence of abscess. No gross evidence of osteomyelitis. See report -Percocet 2 tab PO Q4h prn -PT recommendation: acute rehab Depression improved -Lexapro 15mg daily -trazodone 100mg PO HS -gabapentin 300mg PO BID -Dr. Aceves, psychiatry on board- help appreciated Hx Hepatitis C -Positive for hep C in 2014, pt unsure if it was treated -Follow up hep C ab Insomnia continue ambien 5m gpO HS prn Prophylactic measures -Lovenox -PT/OT Disposition: PT recommends acute rehab Discussed with attending Dr. Shah
--- NOTE | 2018-01-01 17:24 | PCM.PYCHPN ---
Psychiatric Progress Note - Psychiatric Progress Note Patient seen today, length of contact: 16 min Patient Chief Complaint: "I'm anxious" Problems Identified/Issues Discussed: The pt is seen, chart reviewed, case discussed with staff. Patient about living situation after discharge. States that he will be unable to work and support himself due to recent surgery Support given, CBT and LA used briefly No new symptoms reported, improving slowly and needs more time No SEs from medications, risks discussed. After care discussed Medication Change: Yes (add amien, increase lexapro) Medical Record Reviewed: Yes Mental Status Examination - Cognitive Function Orientation: Person, Place, Situation, Time Memory: Impaired Attention: Poor Concentration: Poor Association: WNL Fund of Knowledge: Poor - Mood Mood: Depressed (tearful at times), Anxious - Affect Affect: Constricted - Speech Speech: Appropriate - Formal Thought Process Formal Thought Process: No Impairment - Suicidal Ideation Suicidal Ideation: No - Homicidal Ideation Homicidal Ideation: No Goal/Treatment Plan - Goal/Treatment Plan Need for Continued Stay: Discharge may exacerbated symptoms, Severe functional impairment Progress Toward Problem(s) and Goals/Treatment Plan: Continue medications Support and psychoeducation daily Attend groups and activities daily After care planning by DEVORA
[2018-01-02] MEDS: Piperacill/Tazo 3.375gm in Dex 3.375 GM/50 ML BAG IVPB SCH ×4 (02:36→21:38)
[2018-01-02] MEDS: Oxycodone/Acetaminophen 5/325 mg Tab PO PRN ×4 (02:40→23:43)
[2018-01-02 07:38] LABS: BASO # 0.1 K/uL (0.0-0.2); BASO % 0.9 % (0.0-2.0); EOS # 0.3 K/uL (0.0-0.7); EOS % 4.5 % (0.0-4.0); HEMOGLOBIN 12.7 g/dL (12.0-18.0); LYMPH # 2.3 K/uL (1.0-4.3); LYMPH % 33.6 % (20.0-40.0); MEAN CORPUSCULAR HEMOGLOBIN 28.1 pg (27.0-31.0); MEAN CORPUSCULAR HGB CONC 33.4 g/dL (33.0-37.0); MEAN PLATELET VOLUME 9.8 fL (7.2-11.7); MONO # 0.8 K/uL (0.0-0.8); MONO % 11.3 % (0.0-10.0); NEUT # 3.3 K/uL (1.8-7.0); NEUT % 49.7 % (50.0-75.0); NRBC % 0.2 % (0.0-2.0); RBC 4.53 Mil/uL (4.40-5.90); RED CELL DISTRIBUTION WIDTH 14.5 % (11.5-14.5); WHITE BLOOD COUNT 6.7 K/uL (4.8-10.8)
[2018-01-02 07:39] LABS: ALB/GLOB RATIO 1.1 (1.0-2.1); ALBUMIN 3.6 g/dL (3.5-5.0); ALT/SGPT 49 U/L (21-72); AST/SGOT 49 U/L (17-59); BLOOD UREA NITROGEN 16 mg/dL (9-20); CALCIUM 9.1 mg/dl (8.6-10.4); GFR AFRICAN-AMERICAN > 60; GFR NON-AFRICAN AMERICAN > 60
[2018-01-02] MEDS: Vancomycin 1 gm/NS 200 ml 1 GM/200 ML BAG IVPB SCH ×2 (09:17→22:37)
[2018-01-02] MEDS: Enoxaparin 40 mg Syringe SC SCH (09:21)
--- NOTE | 2018-01-02 09:31 | CP.PCM.PN ---
Subjective - Date & Time of Evaluation Date of Evaluation: 01/02/18 Time of Evaluation: 09:30 - Subjective Subjective: PGY-[address] Shah Patient seen and examined at bedside. No acute events overnight. Patient complains of pain and itchiness at the right leg. Patient agreed on subacute rehab after hospital discharge. Patient denies fever, chills, shortness of breath, chest pain, nausea, or vomiting. Objective - Vital Signs/Intake and Output Vital Signs (last 24 hours): Temp Pulse Resp BP Pulse Ox 98.0 F 55 L 18 135/78 96 01/02/18 07:05 01/02/18 07:05 01/02/18 07:05 01/02/18 07:05 01/02/18 07:05 Intake and Output: 01/02/18 01/02/18 06:59 18:59 Intake Total 200 Output Total 800 Balance -600 - Medications Medications: Current Medications Diphenhydramine HCl (Benadryl) 50 mg PO Q8 PRN PRN Reason: Itching / Pruritus Last Admin: 12/31/17 14:30 Dose: 50 mg Enoxaparin Sodium (Lovenox) 40 mg SC DAILY [facility] Last Admin: 01/01/18 10:21 Dose: 40 mg Escitalopram Oxalate (Lexapro) 15 mg PO DAILY [facility] Last Admin: 01/01/18 10:20 Dose: 15 mg Gabapentin (Neurontin) 300 mg PO BID [facility] Last Admin: 01/01/18 17:28 Dose: 300 mg Cefepime HCl (Maxipime Iv 1 Gm Premix) 1 gm in 50 mls @ 100 mls/hr IVPB ONCE [facility] PRN Reason: Protocol Piperacillin Sod/Tazobactam Sod (Zosyn 3.375 Gm Iv Premix) 3.375 gm in 50 mls @ 100 mls/hr IVPB Q6H [facility] PRN Reason: Protocol Last Admin: 01/02/18 02:36 Dose: 100 mls/hr Vancomycin/Sodium Chloride (Vancomycin 1 Gm/Ns 200 Ml) 1 gm in 200 mls @ 133.333 mls/hr IVPB Q12H [facility] PRN Reason: Protocol Last Admin: 12/31/17 21:07 Dose: 133.333 mls/hr Trazodone HCl (Desyrel) 100 mg PO HS [facility] Last Admin: 01/01/18 21:23 Dose: 100 mg Zolpidem Tartrate (Ambien) 5 mg PO HS PRN PRN Reason: Insomnia Last Admin: 01/01/18 00:17 Dose: 5 mg - Labs Labs: 01/02/18 07:03 01/02/18 07:03 - Constitutional Appears: No Acute Distress - Head Exam Head Exam: ATRAUMATIC, NORMOCEPHALIC - Eye Exam Eye Exam: EOMI - ENT Exam ENT Exam: Mucous Membranes Moist - Neck Exam Neck Exam: Normal Inspection - Respiratory Exam Respiratory Exam: Clear to Ausculation Bilateral, NORMAL BREATHING PATTERN. absent: Respiratory Distress - Cardiovascular Exam Cardiovascular Exam: REGULAR RHYTHM, +S1, +S2. absent: Murmur - GI/Abdominal Exam GI & Abdominal Exam: Soft, Normal Bowel Sounds. absent: Tenderness - Extremities Exam Extremities Exam: Normal Capillary Refill, Tenderness. absent: Normal Inspection Additional comments: right lower extremity with mild erythema and swelling, improving - Neurological Exam Neurological Exam: Alert, Awake, Oriented x3 - Psychiatric Exam Psychiatric exam: Normal Affect, Normal Mood - Skin Skin Exam: Dry, Warm Assessment and Plan - Assessment and Plan (Free Text) Assessment: Right lower extremity cellulitis -Swelling improving- patient to keep foot elevated -Afebrile, no leukocytosis -ID consult, Dr. Galvan help appreciated -Zosyn 3.375mg IV Q6 -Vancomycin 1gm IV Q12h -Lower extremity venous dopppler negative for DVT Right Tibia fibula fracture -S/P ORIF [place] in 11/[address] Ilya Null [address] [place] [address] [address] [place] [address] -patient is to maintain NWB to right leg and follow up with Dr. Null on discharge -CT showed Healing distal tibial and distal fibular diaphyseal fractures, with callus seen about both fractures. No evidence of abscess. No gross evidence of osteomyelitis. See report -Percocet 2 tab PO Q4h prn -PT recommendation: acute rehab Depression improved -Lexapro 15mg daily -trazodone 100mg PO HS -gabapentin 300mg PO BID -Dr. Aceves, psychiatry on board- help appreciated Hx Hepatitis C -Positive for hep C in 2014, pt unsure if it was treated -Follow up hep C ab Insomnia continue ambien 5m gpO HS prn Prophylactic measures -Lovenox -Pepcid -Benadryl -PT/OT Disposition: PT recommends acute rehab, placement pending Discussed with attending Dr. Shah
--- NOTE | 2018-01-02 09:46 | CP.PCM.PN ---
Subjective - Date & Time of Evaluation Date of Evaluation: 01/02/18 Time of Evaluation: 09:44 - Subjective Subjective: Patient states leg pain is improved. Says it is still swollen and hurts when he is up with PT. Review of Systems - Review of Systems All systems: reviewed and no additional remarkable complaints except - Cardiovascular Cardiovascular: UNREMARKABLE - Respiratory Respiratory: UNREMARKABLE - Musculoskeletal Musculoskeletal: As Par HPI - Neurological Neurological: UNREMARKABLE Objective - Vital Signs/Intake and Output Vital Signs (last 24 hours): Temp Pulse Resp BP Pulse Ox 98.0 F 55 L 18 135/78 96 01/02/18 07:05 01/02/18 07:05 01/02/18 07:05 01/02/18 07:05 01/02/18 07:05 Intake and Output: 01/02/18 01/02/18 06:59 18:59 Intake Total 200 Output Total 800 Balance -600 - Medications Medications: Current Medications Diphenhydramine HCl (Benadryl) 50 mg PO Q8 PRN PRN Reason: Itching / Pruritus Last Admin: 12/31/17 14:30 Dose: 50 mg Enoxaparin Sodium (Lovenox) 40 mg SC DAILY [facility] Last Admin: 01/02/18 09:21 Dose: 40 mg Escitalopram Oxalate (Lexapro) 15 mg PO DAILY [facility] Last Admin: 01/02/18 09:16 Dose: 15 mg Gabapentin (Neurontin) 300 mg PO BID [facility] Last Admin: 01/02/18 09:16 Dose: 300 mg Cefepime HCl (Maxipime Iv 1 Gm Premix) 1 gm in 50 mls @ 100 mls/hr IVPB ONCE [facility] PRN Reason: Protocol Piperacillin Sod/Tazobactam Sod (Zosyn 3.375 Gm Iv Premix) 3.375 gm in 50 mls @ 100 mls/hr IVPB Q6H [facility] PRN Reason: Protocol Last Admin: 01/02/18 09:16 Dose: 100 mls/hr Vancomycin/Sodium Chloride (Vancomycin 1 Gm/Ns 200 Ml) 1 gm in 200 mls @ 133.333 mls/hr IVPB Q12H [facility] PRN Reason: Protocol Last Admin: 01/02/18 09:17 Dose: 133.333 mls/hr Trazodone HCl (Desyrel) 100 mg PO HS [facility] Last Admin: 01/01/18 21:23 Dose: 100 mg Zolpidem Tartrate (Ambien) 5 mg PO HS PRN PRN Reason: Insomnia Last Admin: 01/01/18 00:17 Dose: 5 mg - Labs Labs: 01/02/18 07:03 01/02/18 07:03 - Constitutional Appears: Well, No Acute Distress - Head Exam Head Exam: ATRAUMATIC - Neck Exam Neck Exam: Full ROM, Normal Inspection - Respiratory Exam Respiratory Exam: NORMAL BREATHING PATTERN - Extremities Exam Additional comments: swelling slightly improved encouraged elevation sensation intact - Neurological Exam Neurological Exam: Alert, Awake, Oriented x3 Neuro motor strength exam: Right Lower Extremity: 5 - Psychiatric Exam Psychiatric exam: Normal Affect, Normal Mood - Skin Skin Exam: Warm Additional comments: erythema around open wound site noted, minimal. Patient says he just scratched leg. Assessment and Plan (1) Cellulitis, wound, post-operative Assessment & Plan: improved ortho stable for d/c PT/OT possible rehab placement pending patient again instructed t continue NWB elevation at all times in bed Patient again instructed he must follow up with surgeon who did tibial nailing Ilya [address] [place] [id number] within 3 days of discharge without fail. Call for appt. Operative note on chart. d/w Dr. Tijerina, agrees with above ortho stable for d/c to rehab Status: Acute
[2018-01-02] MEDS ORDERED: Oxycodone/Acetaminophen 5/325 mg Tab PO PRN (11:40)
[2018-01-02] MEDS ORDERED: Oxycodone/Acetaminophen 5/325 mg Tab PO ONE (13:35)
[2018-01-03] MEDS: Piperacill/Tazo 3.375gm in Dex 3.375 GM/50 ML BAG IVPB SCH ×4 (02:27→20:40)
[2018-01-03] MEDS: Oxycodone/Acetaminophen 5/325 mg Tab PO PRN ×5 (04:02→21:37)
--- NOTE | 2018-01-03 07:58 | CP.PCM.PN ---
Subjective - Date & Time of Evaluation Date of Evaluation: 01/03/18 Time of Evaluation: 10:35 - Subjective Subjective: PGY-[address] Shah Patient seen and examined at bedside. No acute events reported overnight. Patient reports pain and swelling of right pain, but improving. Patient is aware of placement pending status of rehab. Patient further denies fever, chills , shortness of breath, chest pain, nausea, vomiting or diarrhea. Objective - Vital Signs/Intake and Output Vital Signs (last 24 hours): Temp Pulse Resp BP Pulse Ox 98.1 F 56 L 18 128/76 97 01/03/18 07:40 01/03/18 07:40 01/03/18 07:40 01/03/18 07:40 01/03/18 07:40 Intake and Output: 01/03/18 01/03/18 06:59 18:59 Intake Total 600 Output Total 500 Balance 100 - Medications Medications: Current Medications Diphenhydramine HCl (Benadryl) 50 mg PO Q8 PRN PRN Reason: Itching / Pruritus Last Admin: 12/31/17 14:30 Dose: 50 mg Enoxaparin Sodium (Lovenox) 40 mg SC DAILY [facility] Last Admin: 01/02/18 09:21 Dose: 40 mg Escitalopram Oxalate (Lexapro) 15 mg PO DAILY [facility] Last Admin: 01/02/18 09:16 Dose: 15 mg Famotidine (Pepcid) 20 mg PO DAILY [facility] Gabapentin (Neurontin) 300 mg PO BID [facility] Last Admin: 01/02/18 17:09 Dose: 300 mg Cefepime HCl (Maxipime Iv 1 Gm Premix) 1 gm in 50 mls @ 100 mls/hr IVPB ONCE [facility] PRN Reason: Protocol Piperacillin Sod/Tazobactam Sod (Zosyn 3.375 Gm Iv Premix) 3.375 gm in 50 mls @ 100 mls/hr IVPB Q6H [facility] PRN Reason: Protocol Last Admin: 01/03/18 02:27 Dose: 100 mls/hr Vancomycin/Sodium Chloride (Vancomycin 1 Gm/Ns 200 Ml) 1 gm in 200 mls @ 133.333 mls/hr IVPB Q12H [facility] PRN Reason: Protocol Last Admin: 01/02/18 22:37 Dose: 133.333 mls/hr Oxycodone/Acetaminophen (Percocet 5/325 Mg Tab) 2 tab PO Q4H PRN PRN Reason: Pain, severe (8-10) Stop: 01/05/18 11:41 Last Admin: 01/03/18 04:02 Dose: 2 tab Trazodone HCl (Desyrel) 100 mg PO HS [facility] Last Admin: 01/02/18 21:37 Dose: 100 mg Zolpidem Tartrate (Ambien) 5 mg PO HS PRN PRN Reason: Insomnia Last Admin: 01/01/18 00:17 Dose: 5 mg - Labs Labs: 01/02/18 07:03 01/02/18 07:03 - Constitutional Appears: No Acute Distress - Head Exam Head Exam: ATRAUMATIC, NORMOCEPHALIC - Eye Exam Eye Exam: EOMI Pupil Exam: NORMAL ACCOMODATION - ENT Exam ENT Exam: Mucous Membranes Moist - Neck Exam Neck Exam: Normal Inspection - Respiratory Exam Respiratory Exam: Clear to Ausculation Bilateral, NORMAL BREATHING PATTERN. absent: Respiratory Distress - Cardiovascular Exam Cardiovascular Exam: REGULAR RHYTHM, +S1, +S2. absent: Murmur - GI/Abdominal Exam GI & Abdominal Exam: Soft, Normal Bowel Sounds - Extremities Exam Additional comments: right lower extremity with mild erythema and swelling, continue to improve - Neurological Exam Neurological Exam: Alert, Awake, Oriented x3 - Psychiatric Exam Psychiatric exam: Normal Affect, Normal Mood - Skin Skin Exam: Dry, Warm Assessment and Plan - Assessment and Plan (Free Text) Assessment: Right lower extremity cellulitis -Swelling improving- patient to keep foot elevated -Afebrile, no leukocytosis -ID consult, Dr. Galvan help appreciated -Zosyn 3.375mg IV Q6 -Vancomycin 1gm IV Q12h -PICC line consented -Lower extremity venous dopppler negative for DVT Right Tibia fibula fracture -S/P ORIF [place] in 11/[address] Ilya Null [address] [place] [address] [address] [place] [address] -patient is to maintain NWB to right leg and follow up with Dr. Null on discharge -CT showed Healing distal tibial and distal fibular diaphyseal fractures, with callus seen about both fractures. No evidence of abscess. No gross evidence of osteomyelitis. See report -Percocet 2 tab PO Q4h prn -PT recommendation: acute rehab Depression improved -Lexapro 15mg daily -trazodone 100mg PO HS -gabapentin 300mg PO BID -Dr. Aceves, psychiatry on board- help appreciated Hx Hepatitis C -Positive for hep C in 2014, pt unsure if it was treated -Follow up hep C ab Insomnia continue ambien 5m gpO HS prn Prophylactic measures -Lovenox -Pepcid -Benadryl -PT/OT Disposition: Patient is to be discharge to [facility], placement pending Discussed with attending Dr. Shah
--- NOTE | 2018-01-03 08:41 | CP.PCM.PN ---
Subjective - Date & Time of Evaluation Date of Evaluation: 01/03/18 Time of Evaluation: 08:38 - Subjective Subjective: Patient states he still has pain in his leg, but that it is much better since he hasn't been putting weight on his leg. Denies CP/SOB/dizziness. Objective - Vital Signs/Intake and Output Vital Signs (last 24 hours): Temp Pulse Resp BP Pulse Ox 98.1 F 56 L 18 134/84 97 01/03/18 07:40 01/03/18 07:40 01/03/18 07:40 01/03/18 08:04 01/03/18 07:40 Intake and Output: 01/03/18 01/03/18 06:59 18:59 Intake Total 600 Output Total 500 251 Balance 100 -251 - Medications Medications: Current Medications Diphenhydramine HCl (Benadryl) 50 mg PO Q8 PRN PRN Reason: Itching / Pruritus Last Admin: 12/31/17 14:30 Dose: 50 mg Enoxaparin Sodium (Lovenox) 40 mg SC DAILY [facility] Last Admin: 01/02/18 09:21 Dose: 40 mg Escitalopram Oxalate (Lexapro) 15 mg PO DAILY [facility] Last Admin: 01/02/18 09:16 Dose: 15 mg Famotidine (Pepcid) 20 mg PO DAILY [facility] Gabapentin (Neurontin) 300 mg PO BID [facility] Last Admin: 01/02/18 17:09 Dose: 300 mg Cefepime HCl (Maxipime Iv 1 Gm Premix) 1 gm in 50 mls @ 100 mls/hr IVPB ONCE [facility] PRN Reason: Protocol Piperacillin Sod/Tazobactam Sod (Zosyn 3.375 Gm Iv Premix) 3.375 gm in 50 mls @ 100 mls/hr IVPB Q6H [facility] PRN Reason: Protocol Last Admin: 01/03/18 08:06 Dose: 100 mls/hr Vancomycin/Sodium Chloride (Vancomycin 1 Gm/Ns 200 Ml) 1 gm in 200 mls @ 133.333 mls/hr IVPB Q12H [facility] PRN Reason: Protocol Last Admin: 01/02/18 22:37 Dose: 133.333 mls/hr Oxycodone/Acetaminophen (Percocet 5/325 Mg Tab) 2 tab PO Q4H PRN PRN Reason: Pain, severe (8-10) Stop: 01/05/18 11:41 Last Admin: 01/03/18 08:05 Dose: 2 tab Trazodone HCl (Desyrel) 100 mg PO HS [facility] Last Admin: 01/02/18 21:37 Dose: 100 mg Zolpidem Tartrate (Ambien) 5 mg PO HS PRN PRN Reason: Insomnia Last Admin: 01/01/18 00:17 Dose: 5 mg - Labs Labs: 01/02/18 07:03 01/02/18 07:03 Assessment and Plan (1) Cellulitis, wound, post-operative Status: Acute
[2018-01-03 08:50] LABS: BASO # 0.1 K/uL (0.0-0.2); BASO % 1.2 % (0.0-2.0); EOS # 0.3 K/uL (0.0-0.7); EOS % 4.3 % (0.0-4.0); LYMPH # 2.5 K/uL (1.0-4.3); LYMPH % 36.8 % (20.0-40.0); MEAN CELL VOLUME 83.5 fL (80.0-94.0); MEAN CORPUSCULAR HEMOGLOBIN 27.8 pg (27.0-31.0); MEAN CORPUSCULAR HGB CONC 33.3 g/dL (33.0-37.0); MEAN PLATELET VOLUME 9.6 fL (7.2-11.7); MONO # 0.7 K/uL (0.0-0.8); MONO % 10.7 % (0.0-10.0); NEUT # 3.2 K/uL (1.8-7.0); NRBC % 0.1 % (0.0-2.0); RBC 4.68 Mil/uL (4.40-5.90); RED CELL DISTRIBUTION WIDTH 14.5 % (11.5-14.5); WHITE BLOOD COUNT 6.8 K/uL (4.8-10.8)
[2018-01-03] MEDS: Enoxaparin 40 mg Syringe SC SCH (09:06)
[2018-01-03 09:07] LABS: ALB/GLOB RATIO 1.2 (1.0-2.1); ALBUMIN 3.8 g/dL (3.5-5.0); ALT/SGPT 75 U/L (21-72); AST/SGOT 78 U/L (17-59); BLOOD UREA NITROGEN 15 mg/dL (9-20); CALCIUM 9.1 mg/dl (8.6-10.4); GFR AFRICAN-AMERICAN > 60; GFR NON-AFRICAN AMERICAN > 60
[2018-01-03] MEDS: Vancomycin 1 gm/NS 200 ml 1 GM/200 ML BAG IVPB SCH ×2 (09:24→21:37)
--- NOTE | 2018-01-03 11:50 | PCM.PYCHPN ---
Psychiatric Progress Note - Psychiatric Progress Note Patient seen today, length of contact: 16 min Patient Chief Complaint: "I am anxious" Problems Identified/Issues Discussed: The pt is seen, chart reviewed, case discussed with staff. The pt is compliant with medications and reports no side-effects. Anxious but happy that he is accepted to a [facility] No SI, HI or AVH/del Cleared for d/c Support given Medication Change: No Medical Record Reviewed: Yes Mental Status Examination - Cognitive Function Orientation: Person, Place, Situation, Time Memory: Intact Attention: WNL Concentration: Poor Association: WNL Fund of Knowledge: Poor - Mood Mood: Depressed (less than before), Anxious - Affect Affect: Constricted - Speech Speech: Appropriate - Formal Thought Process Formal Thought Process: No Impairment - Suicidal Ideation Suicidal Ideation: No - Homicidal Ideation Homicidal Ideation: No Goal/Treatment Plan - Goal/Treatment Plan Need for Continued Stay: Other (medical) Progress Toward Problem(s) and Goals/Treatment Plan: Lexapro for depression Gabapentin for anxiety All risks, benefits and alternatives of the meds discussed, and the pt agreed and understood. CBT for depression Psychoeducation and support daily Encourage compliance with meds and after care Refer to outpatient program Teach healthy lifestyle methods, i.e. diet, exercise, meditation Smoking cessation and patch if needed Cleared for d/c Psych will sign off Pls contact if there are changes
--- NOTE | 2018-01-03 16:35 | RAD ---
HISTORY: Verify right PICC COMPARISON: Comparison chest 04/25/2017 FINDINGS: Interval placement right-sided PICC line with in the SVC. LUNGS: No active pulmonary disease. Slight elevation right hemidiaphragm. PLEURA: No significant pleural effusion identified, no pneumothorax apparent. CARDIOVASCULAR: Normal. OSSEOUS STRUCTURES: No significant abnormalities. VISUALIZED UPPER ABDOMEN: Normal. OTHER FINDINGS: None. IMPRESSION: Interval placement right-sided PICC line with tip in the SVC
[2018-01-03 17:20] VITALS: RESP 20
--- NOTE | 2018-01-03 18:42 | CP.PCM.PN ---
Subjective - Date & Time of Evaluation Date of Evaluation: 01/03/18 Time of Evaluation: 09:00 - Subjective Subjective: no new positive cultures seen by ortho rx in progress Objective - Vital Signs/Intake and Output Vital Signs (last 24 hours): Temp Pulse Resp BP Pulse Ox 98.2 F 58 L 20 124/73 95 01/03/18 16:00 01/03/18 16:00 01/03/18 16:00 01/03/18 16:00 01/03/18 16:00 Intake and Output: 01/03/18 01/03/18 06:59 18:59 Intake Total 600 500 Output Total 500 251 Balance 100 249 - Medications Medications: Current Medications Diphenhydramine HCl (Benadryl) 50 mg PO Q8 PRN PRN Reason: Itching / Pruritus Last Admin: 01/03/18 09:09 Dose: 50 mg Enoxaparin Sodium (Lovenox) 40 mg SC DAILY [facility] Last Admin: 01/03/18 09:06 Dose: 40 mg Escitalopram Oxalate (Lexapro) 20 mg PO DAILY [facility] Famotidine (Pepcid) 20 mg PO DAILY [facility] Last Admin: 01/03/18 09:06 Dose: 20 mg Gabapentin (Neurontin) 300 mg PO BID [facility] Last Admin: 01/03/18 17:05 Dose: 300 mg Piperacillin Sod/Tazobactam Sod (Zosyn 3.375 Gm Iv Premix) 3.375 gm in 50 mls @ 100 mls/hr IVPB Q6H [facility] PRN Reason: Protocol Last Admin: 01/03/18 15:46 Dose: 100 mls/hr Vancomycin/Sodium Chloride (Vancomycin 1 Gm/Ns 200 Ml) 1 gm in 200 mls @ 133.333 mls/hr IVPB Q12H [facility] PRN Reason: Protocol Last Admin: 01/03/18 09:24 Dose: 133.333 mls/hr Oxycodone/Acetaminophen (Percocet 5/325 Mg Tab) 2 tab PO Q4H PRN PRN Reason: Pain, severe (8-10) Stop: 01/05/18 11:41 Last Admin: 01/03/18 16:49 Dose: 2 tab Trazodone HCl (Desyrel) 100 mg PO HS [facility] Last Admin: 01/02/18 21:37 Dose: 100 mg Zolpidem Tartrate (Ambien) 5 mg PO HS PRN PRN Reason: Insomnia Last Admin: 01/01/18 00:17 Dose: 5 mg - Labs Labs: 01/03/18 08:39 01/03/18 08:39 - Constitutional Appears: Non-toxic, Chronically Ill - Head Exam Head Exam: NORMOCEPHALIC - Eye Exam Eye Exam: absent: Scleral icterus - ENT Exam ENT Exam: Mucous Membranes Dry - Neck Exam Neck Exam: absent: Lymphadenopathy, Thyromegaly - Respiratory Exam Respiratory Exam: Decreased Breath Sounds - Cardiovascular Exam Cardiovascular Exam: REGULAR RHYTHM - GI/Abdominal Exam GI & Abdominal Exam: Distended - Rectal Exam Rectal Exam: Deferred - Exam Exam: NORMAL INSPECTION - Extremities Exam Extremities Exam: absent: Pedal Edema - Back Exam Back Exam: absent: CVA tenderness (L), CVA tenderness (R) - Neurological Exam Neurological Exam: Alert, Awake Assessment and Plan (1) Cellulitis Status: Acute (2) Alcohol abuse with intoxication Status: Acute (3) Hepatitis C reactive Status: Acute (4) Polysubstance (including opioids) dependence w/o physiol dependence Status: Acute (5) Tibia/fibula fracture Status: Acute
[2018-01-04] MEDS: Oxycodone/Acetaminophen 5/325 mg Tab PO PRN ×3 (02:08→11:10)
[2018-01-04] MEDS: Piperacill/Tazo 3.375gm in Dex 3.375 GM/50 ML BAG IVPB SCH ×3 (02:52→15:05)
--- NOTE | 2018-01-04 07:03 | CP.PCM.PN ---
Subjective - Date & Time of Evaluation Date of Evaluation: 01/04/18 Time of Evaluation: 07:00 - Subjective Subjective: PGY-[address] Shah Patient seen and examined at bedside. No acute events reported overnight. Patient pain and swelling are improving. Patient is aware of placement pending. Patient further denies fever, chills, shortness of breath, chest pain, nausea, vomiting or diarrhea. Objective - Vital Signs/Intake and Output Vital Signs (last 24 hours): Temp Pulse Resp BP Pulse Ox 98 F 60 20 115/71 95 01/04/18 00:00 01/04/18 00:00 01/04/18 00:00 01/04/18 00:00 01/04/18 00:00 Intake and Output: 01/04/18 01/04/18 06:59 18:59 Intake Total 730 Output Total 700 Balance 30 - Medications Medications: Current Medications Diphenhydramine HCl (Benadryl) 50 mg PO Q8 PRN PRN Reason: Itching / Pruritus Last Admin: 01/03/18 09:09 Dose: 50 mg Enoxaparin Sodium (Lovenox) 40 mg SC DAILY [facility] Last Admin: 01/03/18 09:06 Dose: 40 mg Escitalopram Oxalate (Lexapro) 20 mg PO DAILY [facility] Famotidine (Pepcid) 20 mg PO DAILY [facility] Last Admin: 01/03/18 09:06 Dose: 20 mg Gabapentin (Neurontin) 300 mg PO BID [facility] Last Admin: 01/03/18 17:05 Dose: 300 mg Piperacillin Sod/Tazobactam Sod (Zosyn 3.375 Gm Iv Premix) 3.375 gm in 50 mls @ 100 mls/hr IVPB Q6H [facility] PRN Reason: Protocol Last Admin: 01/04/18 02:52 Dose: 100 mls/hr Vancomycin/Sodium Chloride (Vancomycin 1 Gm/Ns 200 Ml) 1 gm in 200 mls @ 133.333 mls/hr IVPB Q12H [facility] PRN Reason: Protocol Last Admin: 01/03/18 21:37 Dose: 133.333 mls/hr Oxycodone/Acetaminophen (Percocet 5/325 Mg Tab) 2 tab PO Q4H PRN PRN Reason: Pain, severe (8-10) Stop: 01/05/18 11:41 Last Admin: 01/04/18 06:45 Dose: 2 tab Trazodone HCl (Desyrel) 100 mg PO HS [facility] Last Admin: 01/03/18 21:37 Dose: 100 mg Zolpidem Tartrate (Ambien) 5 mg PO HS PRN PRN Reason: Insomnia Last Admin: 01/01/18 00:17 Dose: 5 mg - Labs Labs: 01/03/18 08:39 01/03/18 08:39 - Additional Findings Additional findings: - Constitutional Appears: No Acute Distress - Head Exam Head Exam: ATRAUMATIC, NORMOCEPHALIC - Eye Exam Eye Exam: EOMI Pupil Exam: NORMAL ACCOMODATION - ENT Exam ENT Exam: Mucous Membranes Moist - Neck Exam Neck Exam: Normal Inspection - Respiratory Exam Respiratory Exam: Clear to Ausculation Bilateral, NORMAL BREATHING PATTERN. absent: Respiratory Distress - Cardiovascular Exam Cardiovascular Exam: REGULAR RHYTHM, +S1, +S2. absent: Murmur - GI/Abdominal Exam GI & Abdominal Exam: Soft, Normal Bowel Sounds - Extremities Exam Additional comments: right lower extremity with mild erythema and swelling, continue to improve right upper extremity PICC line in place - Neurological Exam Neurological Exam: Alert, Awake, Oriented x3 - Psychiatric Exam Psychiatric exam: Normal Affect, Normal Mood - Skin Skin Exam: Dry, Warm Assessment and Plan - Assessment and Plan (Free Text) Assessment: Right lower extremity cellulitis -Swelling improving- patient to keep foot elevated -Afebrile, no leukocytosis -ID consult, Dr. Galvan help appreciated -Zosyn 3.375mg IV Q6 -Vancomycin 1gm IV Q12h -PICC line inserted 01/04/18 -Lower extremity venous dopppler negative for DVT Right Tibia fibula fracture -S/P ORIF [place] in 11/[address] Ilya Null [address] [place] [address] [address] [place] [id number] -patient is to maintain NWB to right leg and follow up with Dr. Null on discharge -CT showed Healing distal tibial and distal fibular diaphyseal fractures, with callus seen about both fractures. No evidence of abscess. No gross evidence of osteomyelitis. See report -Percocet 2 tab PO Q4h prn -PT recommendation: acute rehab Depression improved -Lexapro 15mg daily -trazodone 100mg PO HS -gabapentin 300mg PO BID -Dr. Aceves, psychiatry on board- help appreciated Hx Hepatitis C -Positive for hep C in 2014, pt unsure if it was treated -Follow up hep C ab Insomnia continue ambien 5m gpO HS prn Prophylactic measures -Lovenox -Pepcid -Benadryl -PT/OT Disposition: Patient is to be discharge to [facility], placement/ authorization pending Discussed with attending Dr. Shah
[2018-01-04 07:24] LABS: BASO # 0.1 K/uL (0.0-0.2); BASO % 1.1 % (0.0-2.0); EOS # 0.3 K/uL (0.0-0.7); EOS % 4.8 % (0.0-4.0); HEMOGLOBIN 12.8 g/dL (12.0-18.0); LYMPH # 2.3 K/uL (1.0-4.3); LYMPH % 38.4 % (20.0-40.0); MEAN CELL VOLUME 83.9 fL (80.0-94.0); MEAN CORPUSCULAR HEMOGLOBIN 28.2 pg (27.0-31.0); MEAN CORPUSCULAR HGB CONC 33.6 g/dL (33.0-37.0); MEAN PLATELET VOLUME 9.9 fL (7.2-11.7); MONO # 0.6 K/uL (0.0-0.8); MONO % 10.3 % (0.0-10.0); NEUT # 2.7 K/uL (1.8-7.0); NEUT % 45.4 % (50.0-75.0); NRBC % 0.2 % (0.0-2.0); RBC 4.53 Mil/uL (4.40-5.90); RED CELL DISTRIBUTION WIDTH 14.5 % (11.5-14.5)
[2018-01-04 08:07] LABS: ALBUMIN 3.5 g/dL (3.5-5.0); ALT/SGPT 68 U/L (21-72); AST/SGOT 61 U/L (17-59); BLOOD UREA NITROGEN 15 mg/dL (9-20); CALCIUM 8.7 mg/dl (8.6-10.4); GFR AFRICAN-AMERICAN > 60; GFR NON-AFRICAN AMERICAN > 60
[2018-01-04] MEDS: Vancomycin 1 gm/NS 200 ml 1 GM/200 ML BAG IVPB SCH (09:40)
[2018-01-04] MEDS: Enoxaparin 40 mg Syringe SC SCH (09:41)
--- NOTE | 2018-01-04 09:55 | CP.PCM.PN ---
Subjective - Date & Time of Evaluation Date of Evaluation: 01/04/18 Time of Evaluation: 09:53 - Subjective Subjective: Patient still complaining of leg pain, no change. Review of Systems - Review of Systems All systems: reviewed and no additional remarkable complaints except - Constitutional Additional comments: no fever/chills - Cardiovascular Cardiovascular: UNREMARKABLE - Respiratory Respiratory: UNREMARKABLE - Gastrointestinal Gastrointestinal: UNREMARKABLE - Musculoskeletal Musculoskeletal: As Par HPI - Integumentary Integumentary: UNREMARKABLE - Neurological Neurological: UNREMARKABLE - Hematologic/Lymphatic Hematologic: UNREMARKABLE Objective - Vital Signs/Intake and Output Vital Signs (last 24 hours): Temp Pulse Resp BP Pulse Ox 98.2 F 54 L 20 96/58 L 93 L 01/04/18 08:00 01/04/18 08:00 01/04/18 08:00 01/04/18 08:00 01/04/18 08:00 Intake and Output: 01/04/18 01/04/18 06:59 18:59 Intake Total 730 Output Total 700 Balance 30 - Medications Medications: Current Medications Diphenhydramine HCl (Benadryl) 50 mg PO Q8 PRN PRN Reason: Itching / Pruritus Last Admin: 01/03/18 09:09 Dose: 50 mg Enoxaparin Sodium (Lovenox) 40 mg SC DAILY [facility] Last Admin: 01/04/18 09:41 Dose: 40 mg Escitalopram Oxalate (Lexapro) 20 mg PO DAILY [facility] Last Admin: 01/04/18 09:42 Dose: 20 mg Famotidine (Pepcid) 20 mg PO DAILY [facility] Last Admin: 01/04/18 09:42 Dose: 20 mg Gabapentin (Neurontin) 300 mg PO BID [facility] Last Admin: 01/04/18 09:42 Dose: 300 mg Piperacillin Sod/Tazobactam Sod (Zosyn 3.375 Gm Iv Premix) 3.375 gm in 50 mls @ 100 mls/hr IVPB Q6H [facility] PRN Reason: Protocol Last Admin: 01/04/18 08:44 Dose: 100 mls/hr Vancomycin/Sodium Chloride (Vancomycin 1 Gm/Ns 200 Ml) 1 gm in 200 mls @ 133.333 mls/hr IVPB Q12H [facility] PRN Reason: Protocol Last Admin: 01/04/18 09:40 Dose: 133.333 mls/hr Oxycodone/Acetaminophen (Percocet 5/325 Mg Tab) 2 tab PO Q4H PRN PRN Reason: Pain, severe (8-10) Stop: 01/05/18 11:41 Last Admin: 01/04/18 06:45 Dose: 2 tab Trazodone HCl (Desyrel) 100 mg PO HS [facility] Last Admin: 01/03/18 21:37 Dose: 100 mg Zolpidem Tartrate (Ambien) 5 mg PO HS PRN PRN Reason: Insomnia Last Admin: 01/01/18 00:17 Dose: 5 mg - Labs Labs: 01/04/18 06:59 01/04/18 06:59 - Constitutional Appears: Well, No Acute Distress - Head Exam Head Exam: ATRAUMATIC - Neck Exam Neck Exam: Full ROM, Normal Inspection - Respiratory Exam Respiratory Exam: NORMAL BREATHING PATTERN - Cardiovascular Exam Additional comments: +DP/PT pulses - Extremities Exam Additional comments: calves soft NT neg homans encourage elevation RLE no change in swelling no change in appearance of wound no erythema sensation intact - Neurological Exam Neurological Exam: Alert, Awake, Oriented x3 Neuro motor strength exam: Right Lower Extremity: 5 - Psychiatric Exam Psychiatric exam: Normal Affect, Normal Mood - Skin Skin Exam: Dry, Normal Color, Warm Assessment and Plan (1) Cellulitis, wound, post-operative Assessment & Plan: improved ortho stable for d/c PT/OT possible rehab placement pending patient again instructed to elevate leg in bed continue NWB elevation at all times in bed Patient again instructed he must follow up with surgeon who did tibial nailing [address] [place] [address] within 3 days of discharge without fail. Call for appt. Operative note on chart. d/w Dr. Tijerina, agrees with above ortho stable for d/c to rehab Status: Acute
[2018-01-04 16:12] VITALS: BP 104/63; PULSE 60; TEMP 98.4
[2018-01-05 07:18] VITALS: O2SAT 100
== END 2018-01-04 16:30 | DRG 277 ==
LOC: C.ER 16:54 → C.9E 18:50 → C.6T 21:37 → C.5S 12-31 09:05
PROVIDERS: ADMIT Internal Medicine Pulmonary Disease; ATTEND Internal Medicine Pulmonary Disease
PROC: 02HV33Z Insertion of Infusion Device into Superior Vena Cava, Percutaneous Approach (ICD-10-PCS; principal; 2018-01-03)
DX: L03.115 Cellulitis of right lower limb (principal); J44.9 Chronic obstructive pulmonary disease, unspecified; F33.3 Major depressive disorder, recurrent, severe with psychotic symptoms; R45.851 Suicidal ideations; F14.11 Cocaine abuse, in remission; F41.9 Anxiety disorder, unspecified; G47.00 Insomnia, unspecified; Z87.01 Personal history of pneumonia (recurrent); F17.210 Nicotine dependence, cigarettes, uncomplicated; F19.10 Other psychoactive substance abuse, uncomplicated; F10.10 Alcohol abuse, uncomplicated

== ENCOUNTER 2018-01-20 17:50 | Inpatient (IN) | payer MEDICAID ==
[2018-01-20 17:50] VITALS: BMI 25.8
[2018-01-20] MEDS ORDERED: Sodium Chloride 0.9% 1,000 ML IV ONE (18:51)
[2018-01-20 19:13] LABS: BASO # 0.2 K/uL (0.0-0.2); BASO % 1.7 % (0.0-2.0); EOS # 0.1 K/uL (0.0-0.7); HEMOGLOBIN 14.3 g/dL (12.0-18.0); LYMPH # 3.5 K/uL (1.0-4.3); LYMPH % 33.7 % (20.0-40.0); MEAN CELL VOLUME 82.5 fL (80.0-94.0); MEAN CORPUSCULAR HEMOGLOBIN 28.3 pg (27.0-31.0); MEAN CORPUSCULAR HGB CONC 34.3 g/dL (33.0-37.0); MEAN PLATELET VOLUME 9.3 fL (7.2-11.7); MONO # 0.5 K/uL (0.0-0.8); MONO % 5.3 % (0.0-10.0); NEUT % 58.3 % (50.0-75.0); NRBC % 0.1 % (0.0-2.0); RBC 5.06 Mil/uL (4.40-5.90); RED CELL DISTRIBUTION WIDTH 15.5 % (11.5-14.5); WHITE BLOOD COUNT 10.3 K/uL (4.8-10.8)
[2018-01-20 19:14] LABS: URINE BILIRUBIN NEGATIVE (NEGATIVE); URINE BLOOD 1+ (NEGATIVE); URINE CLARITY Clear (Clear); URINE COLOR Yellow (YELLOW); URINE GLUCOSE (UA) NORMAL (Normal); URINE LEUKOCYTE ESTERASE NEG Leu/uL (Negative); URINE PROTEIN NEGATIVE (NEGATIVE); URINE UROBILINOGEN NORMAL mg/dL (0.2-1.0)
[2018-01-20 19:24] LABS: ACETAMINOPHEN < 10.0 ug/mL (10.0-30.0); SALICYLATE < 1.0 mg/dL 1
[2018-01-20 19:27] LABS: ALB/GLOB RATIO 1.1 (1.0-2.1); ALBUMIN 4.7 g/dL (3.5-5.0); ALT/SGPT 74 U/L (21-72); AST/SGOT 63 U/L (17-59); BLOOD UREA NITROGEN 11 mg/dL (9-20); CALCIUM 9.8 mg/dl (8.6-10.4); GFR AFRICAN-AMERICAN > 60; GFR NON-AFRICAN AMERICAN > 60; LIPASE 241 U/L (23-300)
[2018-01-20 19:29] LABS: BARBITURATES, UR NEGATIVE (NEGATIVE); OPIATES, UR NEGATIVE (NEGATIVE); PHENCYCLIDINE, UR NEGATIVE (NEGATIVE)
[2018-01-20 19:30] LABS: BENZODIAZEPINES, UR POSITIVE (NEGATIVE)
--- NOTE | 2018-01-20 21:23 | C.PDOC ---
Time Seen by Provider: 01/20/18 18:13 Chief Complaint (Nursing): Psychiatric Evaluation History Per: Patient Onset/Duration Of Symptoms: Days Current Symptoms Are (Timing): Still Present Suicide/Self Injury Attempted (Context): None Modifying Factor(s): Alcohol Severity: Moderate Associated Symptoms: Depression, Suicidal Thoughts Additional History Per: Prior Records Past Medical History Reviewed: Historical Data, Nursing Documentation, Vital Signs Vital Signs: Last Vital Signs Temp 98.1 F 01/20/18 18:15 Pulse 74 01/20/18 20:14 Resp 16 01/20/18 20:14 BP 136/62 01/20/18 20:14 Pulse Ox 98 01/20/18 20:14 - Medical History PMH: Anxiety, Bipolar Disorder, Bronchitis, COPD (Chronic bronchitis), Depression, Hepatitis (C), Pancreatitis, Pneumonia, Post Traumatic Stress Disorder Other PMH: Alcohol abuse Other Surgeries: Right leg ORIF - [facility] DETOXIFICATION SERVICES FOR SUBSTANCE ABUSE TREATMENT (05/26/16) GROUP PSYCHOTHERAPY (05/26/16) INSERTION OF INFUSION DEV INTO SUP VENA CAVA, [facility] APPROACH (12/29/17) LINEAR REP LID LACER (07/03/15) SUTURE OF LIP LACERATION (07/03/15) Family History: States: Unknown Family Hx - Social History Hx Tobacco Use: Yes Hx Alcohol Use: Yes Hx Substance Use: Yes (casually) - Immunization History Hx Tetanus Toxoid Vaccination: No Hx Influenza Vaccination: No Hx Pneumococcal Vaccination: Yes Review Of Systems Except As Marked, All Systems Reviewed And Found Negative. Constitutional: Negative for: Fever Respiratory: Negative for: Shortness of Breath, Hemoptysis Gastrointestinal: Positive for: Abdominal Pain Musculoskeletal: Positive for: Leg Pain (right). Negative for: Neck Pain Neurological: Negative for: Weakness, Numbness Psych: Positive for: Psychosis Physical Exam - Physical Exam Appears: Non-toxic, No Acute Distress, Other (AOB) Skin: Normal Color, Warm, Dry, No Rash Head: Atraumatic, Normacephalic Eye(s): bilateral: PERRL, EOMI Neck: Normal ROM, Supple Cardiovascular: Rhythm Regular Respiratory: Normal Breath Sounds, No Accessory Muscle Use Gastrointestinal/Abdominal: Soft, Tenderness (mild nonspecific), No Distention, No Guarding, No Rebound Back: No CVA Tenderness Extremity: Normal ROM, Capillary Refill (wnl), Swelling (right leg), Other ( right anterior leg healing wound with mild surrouding cellulitis. ) Pulses: Right Dorsalis Pedis: Normal Neurological/Psych: Oriented x3, Normal Motor, Normal Sensation ED Course And Treatment - Laboratory Results Result Diagrams: 01/20/18 19:09 01/20/18 19:09 Lab Interpretation: No Acute Changes O2 Sat by Pulse Oximetry: 98 Pulse Ox Interpretation: Normal Progress Note: Pt was recently admitted to the hospital and received IV antibiotics for his right leg cellulitis with improvement. However he failed to continue oral antibiotics upon discharge. Pt is medically stable for psychiatric admission. Continue Keflex 500mg po qid for his mild remaining right leg cellulitis. Obtain internal medicine consultation as warranted. Progress - Interventions Interventions:: Observation, Intravenous fluid - Medications Administered Intravenous: Antiemetic, H-2 chau, NSAID - Data Reviewed Data Reviewed: Lab, Old records - Patient Status Patient status: Mostly improved - Continuity of Care Discussed patient case with:: Patient, ED Nurse Discussed pt. case with operations consultant/specialty: Psychiatry - Patient Plan Patient Plan: Admission (Psych) Disposition Counseled Patient/Family Regarding: Studies Performed, Diagnosis - Disposition Disposition: HOSPITALIZED Disposition Time: 21:27 Condition: STABLE - Clinical Impression Clinical Impression: PTSD (post-traumatic stress disorder), Alcohol abuse, Cellulitis of right lower leg, Auditory hallucinations Decision To Admit - Pt Status Changed To: Hospital Disposition Of: Inpatient - Admit Certification Admit to Inpatient:: After my assessment, the patient will require hospitalization for at least two midnights. This is because of the severity of symptoms shown, intensity of services needed, and/or the medical risk in this patient being treated as an outpatient. - InPatient: Physician Admission Certification: I certify that this patient requires 2 or more midnights of care for the following reason:: Psych. - . Bed Request Type: Psychiatry Admitting Physician: Luis Felix Patient Diagnosis: PTSD (post-traumatic stress disorder), Alcohol abuse, Cellulitis of right lower leg, Auditory hallucinations
--- NOTE | 2018-01-20 23:09 | PCM.BM ---
<Mayelin Santos - Last Filed: 01/20/18 23:06> Treatment Plan Problems - Problems identified on initial assessmt Depression Date Initiated: 01/20/18 Time Initiated: 22:15 Assessment reference: NA Status: Active Suicidal Ideation Date Initiated: 01/20/18 Time Initiated: 22:15 Assessment reference: NA Status: Active Treatment assets and liabiliti Patient Assests: cooperative, insightful, resourceful Patient Liabilities: physical pain, substance abuse, medical problems - Milieu Protocol Maintain good personal hygiene: daily Encourage regular showers, daily Remind patient to perform daily oral care, every shift Assist patient to perform ADL's Conduct patient checks and document Observation sheet: Q15 minutes Maintain personal safety: every shift Educate patient to report safety concerns to staff, every shift Monitor environment for contraband/sharps Medication safety: Monitor for expected outcome, potential side effects: every shift, Assess barriers to learning: every shift, Assess readiness for medication education: every shift <Maryan Aceves - Last Filed: 01/21/18 12:51> - Diagnosis (1) Alcohol dependence Status: Acute Interventions: 01/21/18 12:51 * Assess 7x/week regarding severity of withdrawal * Educate regarding risks, benefits, side effects and alternatives of medications * Use Motivational Interviewing for abstinence * Use CBT for relapse prevention * Medication management for withdrawal symptoms * Encourage medication assisted treatment * (2) Depression Status: Acute Interventions: 01/21/18 12:51 * Assess/adjust medications daily and /or as needed * See patient on an individual basis 7x/week to assess symptoms of depression * Monitor for side effects & effectiveness of medications * <Paulette Barnes - Last Filed: 01/22/18 12:44> Family Contact Family involvement: Patient does not wish Family/SO involvement Family contact: Patient declines to allow family contact at present - Goals for Treatment Patient goals for treatment: "I do not know what type of treatment I want." Discharge/Continuing Care - Education Needs Education Needs: Patient Medication, Patient Diagnosis/Disease Process, Patient Coping Skills, Patient Aftercare Safety Plan - Discharge Discharge Criteria: Free of Suicidal thoughts, Normal sleep pattern, Ability to care for self, No longer exhibiting s/s of withdrawal, Reduction of target symptoms Discharge to:: Other - Treatment Team Participation Discussed with Family/SO: No Was Patient/Family/SO present at Treatment Team Meeting: Yes
[2018-01-21] MEDS: Pantoprazole 40 mg EC Tab PO SCH (10:49)
--- NOTE | 2018-01-21 12:51 | PCM.PSYCH ---
Initial Psychiatric Evaluation - Initial Psychiatric Evaluation Type of Admission: Voluntary Legal Status: Capacity Chief Complaint (in patient's own words): "I'm very depressed" History of Present Illness and Precipitating Events: The patient is seen, chart reviewed and case discussed. He is known from a consultation recently. This is a 52-year-old white male, single with no child, homeless, unemployed. The patient reports depressive symptoms but denies manic symptoms. He had thought about suicide again by jumping off a building and "everything," but currently contracts for safety and agrees to follow safety plan. He denies drugs and alcohol but he used to use cocaine and alcohol in the past. He also drank once "because of pain." He was here in the medical floor, discharged to a [facility] where he stayed 2 weeks, then he went to his sister's house but he could only stay for 2 days there b/c "it's too crowded, we don't get along." He then went to [facility] but they made him sleep in his wheelchair and then gave him a hard time. He is also unhappy that he cannot walk properly and had his leg swollen. He says there was a glitch and he couldn't use his Abx for a few days but he was on IV abx for 3 weeks. He has an appt with his ortho and asked us to reschedule. He looks very depressed due to his ongoing stressors. Support given Past psych history: He was hospitalized twice in [facility] but last one was in . He is not on any medications. He attempted suicide 4 times he claims and last one was 2 months ago by trying to hang himself. Medical history: He had MRSA and cellulitis now. Family psych history: Mother's side had depression Current Medications: Active Medications Generic Name Dose Route Start Last Admin Trade Name Freq PRN Reason Stop Dose Admin Cephalexin Monohydrate 500 mg 01/21/18 10:00 01/21/18 09:08 Keflex PO 500 mg Q12H [facility] Administration Protocol Hydroxyzine HCl 25 mg 01/20/18 22:55 Atarax PO Q6H PRN Anxiety Ibuprofen 600 mg 01/20/18 22:55 01/20/18 23:47 Motrin Tab PO 600 mg Q6H PRN Administration Pain, severe (8-10) Pantoprazole Sodium 40 mg 01/21/18 10:45 01/21/18 10:49 Protonix Ec Tab PO 40 mg DAILY [facility] Administration Trazodone HCl 50 mg 01/20/18 23:00 01/20/18 23:47 Desyrel PO 50 mg HS [facility] Administration Past Psychiatric History - Past Psychiatric History Previous Treatment History: Inpatient Pertinent Medical Hx (Current Medical&Sleep Prob, Allergies): Allergies Allergy/AdvReac Type Severity Reaction Status Date / Time No Known Allergies Allergy Verified 01/20/18 18:03 oxyCODONE/Acetaminophen [Percocet 5/325 mg Tab] 5 - 325 mg PO Q6H PRN 01/20/18 Review of Systems - Psychiatric Psychiatric: Abnormal Sleep Pattern, Anhedonia, Anxiety, Behavioral Changes, Depression, Difficulty Concentrating. absent: Homicidal Ideation, Irritability , Suicidal Ideation Mental Status Examination - Personal Presentation Personal Presentation: Looks older than stated age - Affect Affect: Constricted - Motor Activity Motor Activity: Calm - Reliability in Providing Information Reliability in Providing Information: Good - Speech Speech: Organized - Mood Mood: Depressed, Anxious - Formal Thought Process Formal Thought Process: No Impairment - Cognitive Functions Orientation: Person, Place, Situation, Time Sensorium: Alert Attention/Concentration: Easily distracted Estimate of Intelligence: Average Judgement: Intact, as evidence by: Insight regarding need for hospitalization Memory: Recent intact, as evidence by: Ability to recall events of the day, Remote intact, as evidenced by: Abilit to recall sig. life events - Risk Risk: Diminished functioning - Strength & Assets Inventory Strength & Assets Inventory: Cooperative - Limitations Limitations: Living alone, Other DSM 5 DX - DSM 5 DSM 5 Diagnosis: Major depressive disorder, recurrent, severe without psychotic features Anxiety disorder unspecified Cocaine use disorder in remission Alcohol use disorder in partial remission - Recommended/Plan of Treatment Treatment Recommendations and Plan of Treatment: Start Lexapro for depression Gabapentin for anxiety All risks, benefits and alternatives of the meds discussed, and the pt agreed and understood. CBT for depression Psychoeducation and support daily Encourage compliance with meds and after care Refer to outpatient program Teach healthy lifestyle methods, i.e. diet, exercise, meditation Smoking cessation and patch if needed Medicine consult 34 min Projected ELOS: 7 days - Smoking Cessation Smoking Cessation Initiated: Yes
--- NOTE | 2018-01-21 16:20 | CP.PCM.CON ---
<Krystle Westfall - Last Filed: 01/21/18 18:24> History of Present Illness - History of Present Illness History of Present Illness: Medicine Consult Note Patient seen and examined at approximately 14:50 PM. Patient's emergency contact is his sister Yesenia Villanueva [phone]. 52 year old year male with past medical history significant for Hepatitis C Virus presents with complaints of right lower extremity pain which he has been experiencing for the past couple of days. Patient states that he slipped and fell down a flight of stairs back in December fracturing his tibia and fibula. Patient states that he needed surgery and followed up with a primary physician outpatient for continuing care. Patient was to follow up with his Orthopedist Dr. Ilya Null on 01/22/18 for continuing care but ended up being hospitalized for suicidal ideations with a plan. Patient's pressing complaints are the swelling and tenderness . He describes an achy feeling. He also admits to left hand pain as well after an injury that he sustained awhile back. Patient states that he was given percocet for the pain; however he believes that he may have taken it on an empty stomach a few times; resulting in stomach pain. At this time, he admits to nausea, vomiting. He denies subjective fevers or chills, paresthesias, headaches, dysuria, urinary urgency or palpitations at this time. PMHx- As stated above PSHx- left shoulder surgery approx ten years ago; ORIF at [facility] Fam hx- Mom had heart disease, father had a tumor behind his heart Meds- Unknown. Patient is unsure Social- Admits to smoking 1 pack per week since teenage years; admits to alcohol use; admits to cocaine use ( last used several months ago) Allergies- NKDA Review of Systems - Cardiovascular Cardiovascular: absent: Chest Pain, Chest Pain at Rest - Respiratory Respiratory: absent: Cough, Dyspnea - Gastrointestinal Gastrointestinal: Abdominal Pain, Nausea, Vomiting - Genitourinary Genitourinary: absent: Difficulty Urinating, Dysuria - Musculoskeletal Musculoskeletal: absent: Joint Swelling - Integumentary Integumentary: Dry Skin, Swelling, Wounds - Psychiatric Psychiatric: Suicidal Ideation Past Patient History - Infectious Disease Hx of Infectious Diseases: None - Past Medical History & Family History Past Medical History?: Yes - Past Social History Smoking Status: Light Smoker < 10 Cigarettes Daily - CARDIAC Hx Cardiac Disorders: No (Patient denied) Hx Hypertension: No (Patient denied) - PULMONARY Hx Bronchitis: Yes Hx Chronic Obstructive Pulmonary Disease (COPD): Yes (Chronic bronchitis) Hx Pneumonia: Yes - NEUROLOGICAL HX Cerebrovascular Accident: No (Patient denied) Hx Seizures: No - HEENT Hx HEENT Problems: Yes Other/Comment: " defect on L eye,Blurry Vision " - RENAL Hx Chronic Kidney Disease: No - ENDOCRINE/METABOLIC Hx Endocrine Disorders: No - HEMATOLOGICAL/ONCOLOGICAL Hx Cancer: No (Patient denied) Hx Human Immunodeficiency Virus (HIV): No (Patient denied) - INTEGUMENTARY Hx Dermatological Problems: No - MUSCULOSKELETAL/RHEUMATOLOGICAL Hx Falls: Yes - GASTROINTESTINAL Hx Pancreatitis: Yes - GENITOURINARY/GYNECOLOGICAL Hx Sexually Transmitted Disorders: No (Patient denied) - PSYCHIATRIC Hx Substance Use: (+ Benzo) - SURGICAL HISTORY Hx Surgeries: Yes Hx Orthopedic Surgery: Yes (R leg 11/28/17) Other/Comment: Surgery on L shoulder 15. years ago from injury", a big TV fell on my Shoulder" - ANESTHESIA Hx Anesthesia: Yes Hx Anesthesia Reactions: No Hx Malignant Hyperthermia: No Meds Allergies/Adverse Reactions: Allergies Allergy/AdvReac Type Severity Reaction Status Date / Time No Known Allergies Allergy Verified 01/20/18 18:03 - Medications Medications: Current Medications Acetaminophen (Tylenol 325mg Tab) 650 mg PO Q6 PRN PRN Reason: Pain, moderate (4-7) Last Admin: 01/21/18 13:18 Dose: 650 mg Cephalexin Monohydrate (Keflex) 500 mg PO Q12H [facility] PRN Reason: Protocol Last Admin: 01/21/18 09:08 Dose: 500 mg Escitalopram Oxalate (Lexapro) 10 mg PO DAILY [facility] Last Admin: 01/21/18 13:16 Dose: 10 mg Gabapentin (Neurontin) 300 mg PO TID [facility] Last Admin: 01/21/18 13:16 Dose: 300 mg Hydroxyzine HCl (Atarax) 25 mg PO Q6H PRN PRN Reason: Anxiety Pantoprazole Sodium (Protonix Ec Tab) 40 mg PO DAILY [facility] Last Admin: 01/21/18 10:49 Dose: 40 mg Trazodone HCl (Desyrel) 100 mg PO HS [facility] Physical Exam - Constitutional Appears: Non-toxic, No Acute Distress - Head Exam Head Exam: ATRAUMATIC, NORMAL INSPECTION, NORMOCEPHALIC - Eye Exam Eye Exam: EOMI, Normal appearance, PERRL Pupil Exam: NORMAL ACCOMODATION, PERRL - ENT Exam ENT Exam: Mucous Membranes Moist - Neck Exam Neck exam: Positive for: Full Rom - Respiratory Exam Respiratory Exam: NORMAL BREATHING PATTERN. absent: Wheezes - Cardiovascular Exam Cardiovascular Exam: +S1, +S2 - GI/Abdominal Exam GI & Abdominal Exam: Normal Bowel Sounds, Soft. absent: Tenderness - Extremities Exam Extremities exam: Positive for: full ROM, normal capillary refill, pedal pulses present. Negative for: calf tenderness Additional comments: right lower extremity swelling ( mildly larger than left ) - Back Exam Back exam: FULL ROM - Neurological Exam Neurological exam: Alert, Oriented x3 - Psychiatric Exam Psychiatric exam: Normal Affect, Normal Mood - Skin Skin Exam: Dry, Warm (some warmth of right lower extremity) Additional comments: scab noted on lateral right clifford, mild erythema, healed suture sites noted- mild erythema Results - Vital Signs Recent Vital Signs: Last Vital Signs Temp 97.7 F 01/21/18 05:51 Pulse 55 L 01/21/18 05:51 Resp 20 01/21/18 05:51 BP 132/79 01/21/18 05:51 Pulse Ox 95 01/20/18 21:53 - Labs Result Diagrams: 01/20/18 19:09 01/20/18 19:09 Labs: Laboratory Results - last 24 hr 01/20/18 01/20/18 01/20/18 19:09 19:09 19:09 WBC 10.3 D RBC 5.06 Hgb 14.3 Hct 41.8 MCV 82.5 MCH 28.3 MCHC 34.3 RDW 15.5 H Plt Count 195 MPV 9.3 Neut % (Auto) 58.3 Lymph % (Auto) 33.7 Lucas % (Auto) 5.3 Eos % (Auto) 1.0 Baso % (Auto) 1.7 Neut # (Auto) 6.0 Lymph # (Auto) 3.5 Lucas # (Auto) 0.5 Eos # (Auto) 0.1 Baso # (Auto) 0.2 Sodium 140 Potassium 4.0 Chloride 98 Carbon Dioxide 21 L Anion Gap 24 H BUN 11 Creatinine 0.7 L Est GFR ( Amer) > 60 Est GFR (Non-Af Amer) > 60 Random Glucose 94 Calcium 9.8 Total Bilirubin 0.8 AST 63 H ALT 74 H Alkaline Phosphatase 98 Troponin I < 0.0120 Total Protein 8.7 H Albumin 4.7 Globulin 4.1 H Albumin/Globulin Ratio 1.1 Lipase 241 Urine Color Yellow Urine Clarity Clear Urine pH 6.0 Ur Specific Yoder 1.006 Urine Protein Negative Urine Glucose (UA) Normal Urine Ketones Negative Urine Blood 1+ H Urine Nitrate Negative Urine Bilirubin Negative Urine Urobilinogen Normal Ur Leukocyte Esterase Neg Urine WBC (Auto) < 1 Salicylates Urine Opiates Screen Urine Methadone Screen Acetaminophen Ur Barbiturates Screen Ur Phencyclidine Scrn Ur Amphetamines Screen U Benzodiazepines Scrn U Oth Cocaine Metabols U Cannabinoids Screen Alcohol, Quantitative 78 H 01/20/18 01/20/18 19:09 19:09 WBC RBC Hgb Hct MCV MCH MCHC RDW Plt Count MPV Neut % (Auto) Lymph % (Auto) Lucas % (Auto) Eos % (Auto) Baso % (Auto) Neut # (Auto) Lymph # (Auto) Lucas # (Auto) Eos # (Auto) Baso # (Auto) Sodium Potassium Chloride Carbon Dioxide Anion Gap BUN Creatinine Est GFR ( Amer) Est GFR (Non-Af Amer) Random Glucose Calcium Total Bilirubin AST ALT Alkaline Phosphatase Troponin I Total Protein Albumin Globulin Albumin/Globulin Ratio Lipase Urine Color Urine Clarity Urine pH Ur Specific Yoder Urine Protein Urine Glucose (UA) Urine Ketones Urine Blood Urine Nitrate Urine Bilirubin Urine Urobilinogen Ur Leukocyte Esterase Urine WBC (Auto) Salicylates < 1.0 Urine Opiates Screen Negative Urine Methadone Screen Negative Acetaminophen < 10.0 L Ur Barbiturates Screen Negative Ur Phencyclidine Scrn Negative Ur Amphetamines Screen Negative U Benzodiazepines Scrn Positive U Oth Cocaine Metabols Negative U Cannabinoids Screen Negative Alcohol, Quantitative Assessment & Plan - Assessment and Plan (Free Text) Assessment: Right lower extremity cellulitis Swelling improved per patient- Patient encouraged to keep foot elevated Afebrile, no leukocytosis was on IV antibiotics during previous admission Patient did not continue with oral antibiotics outpatient after discharge . Will restart oral antibiotics at this time. Keflex 500 mg Q12 ( started 01/21/18) On florastor -Lower extremity venous dopppler negative for DVT on 12/30 On Tramadol 25 mg PO TID PRN ( Discontinued percocet, tylenol- on hold due to elevated LFTs) Toradol or NSAIDS not recommended due to gastritis F/U Labs S/P ORIF -S/P ORIF [place]. Ilya Famterrence [address] [place] [address] [id number] [place] [id number] is surgeon -patient is to maintain NWB to right leg and follow up with Dr. Null on discharge. Patient is encouraged to follow up with Orthopedic Doctor on discharge for continuing care. - Lower extremity CT ( 12/30/17) showed Healing distal tibial and distal fibular diaphyseal fractures, with callus seen about both fractures. No evidence of abscess. No gross evidence of osteomyelitis then. See report -PT evaluation warranted Avulsion injury of Left hand Patient had XRAYS from September 2017 which confirm avulsion injury No recommendations for further imaging Patient to follow up with Orthopedic doctor outpatient for further workup Gastritis Clear Liquid diet at this time. Recommended to hold off on taking any medications on an empty stomach avoid NSAIDS Monitor in AM- may consider diet advancement Suicidal Ideations Counseling services Management per Psych History of Hepatitis C -Positive for HCV in 2014 -Hep C antibody reactive -Avoid Tylenol based agents at this time. -Being treated by primary doctor outpatient Prophylactic measure Recommendations for ambulation with crutches PT services at this time. <Danni Martinez - Last Filed: 01/24/18 11:21> Meds - Medications Medications: Current Medications Acetaminophen (Tylenol 325mg Tab) 650 mg PO Q6 PRN PRN Reason: Pain, moderate (4-7) Last Admin: 01/21/18 13:18 Dose: 650 mg Clonazepam (Klonopin) 0.5 mg PO BID [facility] Last Admin: 01/24/18 09:54 Dose: 0.5 mg Escitalopram Oxalate (Lexapro) 20 mg PO DAILY [facility] Last Admin: 01/24/18 09:54 Dose: 20 mg Gabapentin (Neurontin) 400 mg PO TID [facility] Hydroxyzine HCl (Atarax) 25 mg PO Q6H PRN PRN Reason: Anxiety Last Admin: 01/23/18 21:07 Dose: 25 mg Nystatin (Nystop Topical Powder) 1 applic TOP BID [facility] Last Admin: 01/24/18 09:53 Dose: 1 applic Pantoprazole Sodium (Protonix Ec Tab) 40 mg PO DAILY [facility] Last Admin: 01/24/18 09:54 Dose: 40 mg Quetiapine Fumarate (Seroquel) 50 mg PO HS [facility] Last Admin: 01/23/18 21:07 Dose: 50 mg Saccharomyces Boulardii (Florastor) 250 mg PO BID [facility] Last Admin: 01/24/18 09:54 Dose: 250 mg Tramadol HCl (Ultram) 25 mg PO TID PRN PRN Reason: Pain, moderate (4-7) Last Admin: 01/23/18 21:06 Dose: 25 mg Trazodone HCl (Desyrel) 100 mg PO HS [facility] Last Admin: 01/23/18 21:08 Dose: Not Given Trimethoprim/Sulfamethoxazole (Bactrim Ds Tab) 1 tab PO Q12 [facility] PRN Reason: Protocol Last Admin: 01/24/18 09:54 Dose: 1 tab Results - Vital Signs Recent Vital Signs: Last Vital Signs Temp 97.8 F 01/24/18 06:07 Pulse 72 01/24/18 06:07 Resp 18 01/24/18 06:07 BP 111/67 01/24/18 06:07 Pulse Ox 95 01/20/18 21:53 - Labs Result Diagrams: 01/22/18 08:18 01/22/18 08:18 Attending/Attestation - Attestation I have personally seen and examined this patient.: Yes I have fully participated in the care of the patient.: Yes I have reviewed all pertinent clinical information: Yes Notes (Text): Patient was seen and examined complaining of leg pain and requesting pain medication. 1.Right lower extremity cellulitis Swelling improved per patient,recent hospitalization and treated with IV antibiotics during previous admission He has no fever,no leukocytosis,no discharge from surgical site Patient did not continue with oral antibiotics outpatient after discharge . Keflex 500 mg Q12. Patient was asked to follow his orthopedic physician after discharge 2.S/P ORIF - follow up with Orthopedic Doctor on discharge for continuing care. 3.Avulsion injury of Left hand 4.Gastritis 5. Suicidal Ideations d/w resident. I agree with the documentation of the assessment and the plan
[2018-01-21] MEDS: Saccharomyces Boulardi 250 mg Cap PO SCH (17:34)
[2018-01-21] MEDS: Tramadol 25 mg PO PRN (19:54)
[2018-01-22 08:25] LABS: BASO # 0.1 K/uL (0.0-0.2); BASO % 1.2 % (0.0-2.0); EOS # 0.3 K/uL (0.0-0.7); EOS % 4.1 % (0.0-4.0); HEMOGLOBIN 13.7 g/dL (12.0-18.0); LYMPH # 2.8 K/uL (1.0-4.3); LYMPH % 39.3 % (20.0-40.0); MEAN CELL VOLUME 83.6 fL (80.0-94.0); MEAN CORPUSCULAR HEMOGLOBIN 28.1 pg (27.0-31.0); MEAN CORPUSCULAR HGB CONC 33.7 g/dL (33.0-37.0); MEAN PLATELET VOLUME 8.9 fL (7.2-11.7); MONO # 0.6 K/uL (0.0-0.8); MONO % 8.1 % (0.0-10.0); NEUT # 3.4 K/uL (1.8-7.0); NEUT % 47.3 % (50.0-75.0); NRBC % 0.1 % (0.0-2.0); RBC 4.88 Mil/uL (4.40-5.90); RED CELL DISTRIBUTION WIDTH 15.5 % (11.5-14.5); WHITE BLOOD COUNT 7.1 K/uL (4.8-10.8)
[2018-01-22 08:42] LABS: ALB/GLOB RATIO 1.2 (1.0-2.1); ALBUMIN 3.9 g/dL (3.5-5.0); ALT/SGPT 63 U/L (21-72); AMYLASE 124 U/L (30-110); AST/SGOT 56 U/L (17-59); BLOOD UREA NITROGEN 12 mg/dL (9-20); CALCIUM 9.5 mg/dl (8.6-10.4); GFR AFRICAN-AMERICAN > 60; GFR NON-AFRICAN AMERICAN > 60; LIPASE 232 U/L (23-300)
[2018-01-22] MEDS: Tramadol 25 mg PO PRN (10:01)
[2018-01-22] MEDS: Pantoprazole 40 mg EC Tab PO SCH (10:01)
[2018-01-22] MEDS: Saccharomyces Boulardi 250 mg Cap PO SCH ×2 (10:01→18:08)
--- NOTE | 2018-01-22 13:21 | CP.PCM.PN ---
Addendum entered and electronically signed by Michael Solorio DO 01/24/18 13: 42: PE: * A/O x3 * Heart is RRR no MRG * Lungs are CTAB * Abdomen is soft non-tender, non-distended, normal bowel sounds * R. Leg is non tender, some mild erythema but no increased warmth or tenderness , No discharge A/P: Patient will need to follow up with his own orthopedic surgeon as soon as possible. Patient should continue to take antibiotics as prescribed. Original Note: <Michael Solorio - Last Filed: 01/22/18 13:17> Subjective - Date & Time of Evaluation Date of Evaluation: 01/22/18 Time of Evaluation: 13:17 - Subjective Subjective: Patient is seen and examined at bedside. He was still complaining of pain on the leg as well as a rash on his groin bilaterally for which we gave him nystatin powder BID. He should continue his PO antibiotics until he is seen by the orthopedic surgeon. We are signing off the case at this time. Please do not hesitate reconsult if necessary. Thank you very much Objective - Vital Signs/Intake and Output Vital Signs (last 24 hours): Temp Pulse Resp BP Pulse Ox 98 F 52 L 18 116/71 95 01/22/18 06:16 01/22/18 10:38 01/22/18 06:16 01/22/18 06:16 01/20/18 21:53 - Medications Medications: Current Medications Acetaminophen (Tylenol 325mg Tab) 650 mg PO Q6 PRN PRN Reason: Pain, moderate (4-7) Last Admin: 01/21/18 13:18 Dose: 650 mg Escitalopram Oxalate (Lexapro) 15 mg PO DAILY [facility] Gabapentin (Neurontin) 300 mg PO TID [facility] Last Admin: 01/22/18 10:04 Dose: 300 mg Hydroxyzine HCl (Atarax) 25 mg PO Q6H PRN PRN Reason: Anxiety Last Admin: 01/21/18 21:24 Dose: 25 mg Nystatin (Nystop Topical Powder) 1 applic TOP BID [facility] Pantoprazole Sodium (Protonix Ec Tab) 40 mg PO DAILY [facility] Last Admin: 01/22/18 10:01 Dose: 40 mg Saccharomyces Boulardii (Florastor) 250 mg PO BID [facility] Last Admin: 01/22/18 10:01 Dose: 250 mg Tramadol HCl (Ultram) 25 mg PO TID PRN PRN Reason: Pain, moderate (4-7) Last Admin: 01/22/18 10:01 Dose: 25 mg Trazodone HCl (Desyrel) 100 mg PO HS [facility] Last Admin: 01/21/18 21:24 Dose: 100 mg - Labs Labs: 01/22/18 08:18 01/22/18 08:18 <Danni Martinez - Last Filed: 01/26/18 11:45> Objective - Vital Signs/Intake and Output Vital Signs (last 24 hours): Temp Pulse Resp BP Pulse Ox 98.6 F 83 20 120/71 95 01/26/18 06:10 01/26/18 06:10 01/26/18 06:10 01/26/18 06:10 01/20/18 21:53 - Medications Medications: Current Medications Acetaminophen (Tylenol 325mg Tab) 650 mg PO Q6 PRN PRN Reason: Pain, moderate (4-7) Last Admin: 01/21/18 13:18 Dose: 650 mg Clonazepam (Klonopin) 0.5 mg PO BID [facility] Last Admin: 01/26/18 10:21 Dose: 0.5 mg Clotrimazole (Lotrimin 1%) 0 gm TOP BID [facility] Last Admin: 01/26/18 10:49 Dose: 1 applic Escitalopram Oxalate (Lexapro) 20 mg PO DAILY [facility] Last Admin: 01/26/18 10:21 Dose: 20 mg Gabapentin (Neurontin) 600 mg PO TID [facility] Last Admin: 01/26/18 10:21 Dose: 600 mg Hydroxyzine HCl (Atarax) 25 mg PO Q6H PRN PRN Reason: Anxiety Last Admin: 01/23/18 21:07 Dose: 25 mg Pantoprazole Sodium (Protonix Ec Tab) 40 mg PO DAILY [facility] Last Admin: 01/26/18 10:21 Dose: 40 mg Quetiapine Fumarate (Seroquel) 50 mg PO [facility] Last Admin: 01/25/18 21:18 Dose: 50 mg Saccharomyces Boulardii (Florastor) 250 mg PO BID [facility] Last Admin: 01/26/18 10:23 Dose: 250 mg Tramadol HCl (Ultram) 25 mg PO TID PRN PRN Reason: Pain, moderate (4-7) Last Admin: 01/26/18 10:44 Dose: 25 mg Trazodone HCl (Desyrel) 100 mg PO HS [facility] Last Admin: 01/25/18 21:18 Dose: 100 mg Trimethoprim/Sulfamethoxazole (Bactrim Ds Tab) 1 tab PO Q12 [facility] PRN Reason: Protocol Last Admin: 01/26/18 10:21 Dose: 1 tab - Labs Labs: 01/25/18 07:49 01/22/18 08:18 Attending/Attestation - Attestation I have personally seen and examined this patient.: Yes I have fully participated in the care of the patient.: Yes I have reviewed all pertinent clinical information, including history, physical exam and plan: Yes Notes (Text): Patient was told to follow his orthopedic physician. has no wound discharge,no fever we will sign off
[2018-01-22] MEDS: Tmp-Smz 800 mg-160 mg DS Tab PO SCH (14:09)
[2018-01-23] MEDS: Saccharomyces Boulardi 250 mg Cap PO SCH ×2 (10:03→17:12)
[2018-01-23] MEDS: Tmp-Smz 800 mg-160 mg DS Tab PO SCH ×2 (10:04→21:06)
[2018-01-23] MEDS: Pantoprazole 40 mg EC Tab PO SCH (10:04)
--- NOTE | 2018-01-23 13:48 | PCM.PYCHPN ---
Psychiatric Progress Note - Psychiatric Progress Note Patient seen today, length of contact: 16 min Patient Chief Complaint: "I'm still depressed" Problems Identified/Issues Discussed: The pt is seen, chart reviewed, case discussed with staff. Support given, CBT and [place] used briefly No new symptoms reported, improving slowly and needs more time No SEs from medications, risks discussed. After care discussed Medication Change: Yes Medical Record Reviewed: Yes Mental Status Examination - Cognitive Function Orientation: Person, Place, Situation, Time Memory: Impaired Attention: Poor Concentration: Poor Association: WNL Fund of Knowledge: WNL - Mood Mood: Depressed, Anxious - Affect Affect: Constricted - Speech Speech: Appropriate - Formal Thought Process Formal Thought Process: No Impairment - Suicidal Ideation Suicidal Ideation: No - Homicidal Ideation Homicidal Ideation: No Goal/Treatment Plan - Goal/Treatment Plan Need for Continued Stay: Severe depression anxiety, Discharge may exacerbated symptoms, Severe functional impairment Progress Toward Problem(s) and Goals/Treatment Plan: Add klonopin Lexapro for depression Gabapentin for anxiety All risks, benefits and alternatives of the meds discussed, and the pt agreed and understood. CBT for depression Psychoeducation and support daily Encourage compliance with meds and after care Refer to outpatient program Teach healthy lifestyle methods, i.e. diet, exercise, meditation Smoking cessation and patch if needed Medicine consult appreciated
[2018-01-23] MEDS: Tramadol 25 mg PO PRN (21:06)
[2018-01-24] MEDS: Pantoprazole 40 mg EC Tab PO SCH (09:54)
[2018-01-24] MEDS: Saccharomyces Boulardi 250 mg Cap PO SCH ×2 (09:54→17:32)
[2018-01-24] MEDS: Tmp-Smz 800 mg-160 mg DS Tab PO SCH ×3 (09:54→21:42)
--- NOTE | 2018-01-24 22:36 | PCM.PYCHPN ---
Psychiatric Progress Note - Psychiatric Progress Note Patient seen today, length of contact: 16 min Patient Chief Complaint: "I'm not well" Problems Identified/Issues Discussed: The pt is seen, chart reviewed, case discussed with staff. The pt is compliant with medications and reports no side-effects. Symptoms are improving but needs more time to stabilize. After care discussed, support and psychoeducation given. Still pessimistic, questioning medications Medication Change: Yes (increase lexapro) Medical Record Reviewed: Yes Mental Status Examination - Cognitive Function Orientation: Person, Place, Situation, Time Memory: Impaired Attention: Poor Concentration: Poor Association: WNL Fund of Knowledge: WNL - Mood Mood: Depressed, Anxious - Affect Affect: Constricted - Speech Speech: Appropriate - Formal Thought Process Formal Thought Process: No Impairment - Suicidal Ideation Suicidal Ideation: No - Homicidal Ideation Homicidal Ideation: No Goal/Treatment Plan - Goal/Treatment Plan Need for Continued Stay: Severe depression anxiety, Discharge may exacerbated symptoms, Severe functional impairment Progress Toward Problem(s) and Goals/Treatment Plan: Klonopin for anxiety Lexapro for depression Gabapentin for anxiety All risks, benefits and alternatives of the meds discussed, and the pt agreed and understood. CBT for depression Psychoeducation and support daily Encourage compliance with meds and after care Refer to outpatient program Teach healthy lifestyle methods, i.e. diet, exercise, meditation Smoking cessation and patch if needed
[2018-01-25 08:06] LABS: BASO # 0.1 K/uL (0.0-0.2); BASO % 1.1 % (0.0-2.0); EOS # 0.6 K/uL (0.0-0.7); EOS % 8.8 % (0.0-4.0); HEMOGLOBIN 13.9 g/dL (12.0-18.0); LYMPH # 2.1 K/uL (1.0-4.3); LYMPH % 31.5 % (20.0-40.0); MEAN CELL VOLUME 82.6 fL (80.0-94.0); MEAN CORPUSCULAR HEMOGLOBIN 28.1 pg (27.0-31.0); MEAN CORPUSCULAR HGB CONC 34.1 g/dL (33.0-37.0); MEAN PLATELET VOLUME 9.4 fL (7.2-11.7); MONO # 0.8 K/uL (0.0-0.8); MONO % 11.1 % (0.0-10.0); NEUT # 3.2 K/uL (1.8-7.0); NEUT % 47.5 % (50.0-75.0); NRBC % 0.1 % (0.0-2.0); RBC 4.93 Mil/uL (4.40-5.90); RED CELL DISTRIBUTION WIDTH 15.2 % (11.5-14.5); WHITE BLOOD COUNT 6.8 K/uL (4.8-10.8)
[2018-01-25] MEDS: Pantoprazole 40 mg EC Tab PO SCH (09:56)
[2018-01-25] MEDS: Tmp-Smz 800 mg-160 mg DS Tab PO SCH ×2 (09:56→21:19)
[2018-01-25] MEDS: Saccharomyces Boulardi 250 mg Cap PO SCH ×2 (09:56→17:29)
--- NOTE | 2018-01-25 11:57 | PCM.PYCHPN ---
Psychiatric Progress Note - Psychiatric Progress Note Patient seen today, length of contact: 16 min Patient Chief Complaint: "I'm anxious" Problems Identified/Issues Discussed: The pt is seen, chart reviewed, case discussed with staff. Support given, CBT and [place] used briefly No new symptoms reported, improving slowly and needs more time No SEs from medications, risks discussed. After care discussed - somewhat uninterested bc he wants to "feel better than this." Risks of klonopin discussed - gabapentin to be increased Medication Change: Yes (increase lexapro) Medical Record Reviewed: Yes Mental Status Examination - Cognitive Function Orientation: Person, Place, Situation, Time Memory: Impaired Attention: Poor Concentration: Poor Association: WNL Fund of Knowledge: WNL - Mood Mood: Depressed, Anxious - Affect Affect: Constricted - Speech Speech: Appropriate - Formal Thought Process Formal Thought Process: No Impairment - Suicidal Ideation Suicidal Ideation: No - Homicidal Ideation Homicidal Ideation: No Goal/Treatment Plan - Goal/Treatment Plan Need for Continued Stay: Severe depression anxiety, Discharge may exacerbated symptoms, Severe functional impairment Progress Toward Problem(s) and Goals/Treatment Plan: Klonopin for anxiety Lexapro for depression Gabapentin for anxiety All risks, benefits and alternatives of the meds discussed, and the pt agreed and understood. CBT for depression Psychoeducation and support daily Encourage compliance with meds and after care Refer to outpatient program Teach healthy lifestyle methods, i.e. diet, exercise, meditation Smoking cessation and patch if needed
[2018-01-25] MEDS: Clotrimazole 1% Cream(30 gm) TOP SCH ×2 (14:29→17:31)
[2018-01-26] MEDS: Tmp-Smz 800 mg-160 mg DS Tab PO SCH ×2 (10:21→21:11)
[2018-01-26] MEDS: Pantoprazole 40 mg EC Tab PO SCH (10:21)
[2018-01-26] MEDS: Saccharomyces Boulardi 250 mg Cap PO SCH ×3 (10:22→17:11)
[2018-01-26] MEDS: Tramadol 25 mg PO PRN ×2 (10:44→17:11)
[2018-01-26] MEDS: Clotrimazole 1% Cream(30 gm) TOP SCH ×2 (10:49→17:11)
--- NOTE | 2018-01-26 13:03 | PCM.PYCHPN ---
Psychiatric Progress Note - Psychiatric Progress Note Patient seen today, length of contact: 16 min Patient Chief Complaint: I am feeling depressed.' Problems Identified/Issues Discussed: Patient seen and evaluated, chart reviewed and discussed with the nurse. Patient still reports depressed mood and reports at times feelings of hopelessness or helplessness. He reports withdrawal symptoms including cramps, back pain and sweating. However he denies any suicidal ideation or homicidal ideation. He denies any auditory or visual hallucinations or any psychotic symptoms. He needs some more time for stabilization. He is compliant with his medications and denies any side effects. Supportive therapy and psychoeducation were given. Medication Change: Yes (increase lexapro) Medical Record Reviewed: Yes Mental Status Examination - Cognitive Function Orientation: Person, Place, Situation, Time Memory: Impaired Attention: Poor Concentration: Poor Association: WNL Fund of Knowledge: WNL - Mood Mood: Depressed, Anxious - Affect Affect: Constricted - Speech Speech: Appropriate - Formal Thought Process Formal Thought Process: No Impairment - Suicidal Ideation Suicidal Ideation: No - Homicidal Ideation Homicidal Ideation: No Goal/Treatment Plan - Goal/Treatment Plan Need for Continued Stay: Severe depression anxiety, Discharge may exacerbated symptoms, Severe functional impairment Progress Toward Problem(s) and Goals/Treatment Plan: Klonopin for anxiety Lexapro for depression Gabapentin for anxiety All risks, benefits and alternatives of the meds discussed, and the pt agreed and understood. CBT for depression Psychoeducation and support daily Encourage compliance with meds and after care Refer to outpatient program Teach healthy lifestyle methods, i.e. diet, exercise, meditation Smoking cessation and patch if needed - Smoking Cessation Smoking Cessation Initiated: No
[2018-01-27] MEDS: Tramadol 25 mg PO PRN ×4 (01:34→16:35)
[2018-01-27] MEDS: Pantoprazole 40 mg EC Tab PO SCH (09:22)
[2018-01-27] MEDS: Clotrimazole 1% Cream(30 gm) TOP SCH ×3 (09:30→17:21)
[2018-01-27] MEDS: Tmp-Smz 800 mg-160 mg DS Tab PO SCH (09:30)
[2018-01-27] MEDS: Saccharomyces Boulardi 250 mg Cap PO SCH ×2 (10:26→17:24)
--- NOTE | 2018-01-28 00:54 | PCM.PYCHPN ---
Psychiatric Progress Note - Psychiatric Progress Note Patient seen today, length of contact: 16 min Patient Chief Complaint: I am feeling depressed.' Problems Identified/Issues Discussed: Patient seen and evaluated, chart reviewed and discussed with the nurse. Patient still reports depressed mood and he is still reporting feelings of hopelessness and helplessness. He reports withdrawal symptoms including cramps, back pain and sweating. However he denies any suicidal ideation or homicidal ideation. He denies any auditory or visual hallucinations or any psychotic symptoms. He needs some more time for stabilization. He is compliant with his medications and denies any side effects. Supportive therapy and psychoeducation were given. Medication Change: Yes (increase lexapro) Medical Record Reviewed: Yes Mental Status Examination - Cognitive Function Orientation: Person, Place, Situation, Time Memory: Impaired Attention: Poor Concentration: Poor Association: WNL Fund of Knowledge: WNL - Mood Mood: Depressed, Anxious - Affect Affect: Constricted - Speech Speech: Appropriate - Formal Thought Process Formal Thought Process: No Impairment - Suicidal Ideation Suicidal Ideation: No - Homicidal Ideation Homicidal Ideation: No Goal/Treatment Plan - Goal/Treatment Plan Need for Continued Stay: Severe depression anxiety, Discharge may exacerbated symptoms, Severe functional impairment Progress Toward Problem(s) and Goals/Treatment Plan: Klonopin for anxiety Lexapro for depression Gabapentin for anxiety All risks, benefits and alternatives of the meds discussed, and the pt agreed and understood. CBT for depression Psychoeducation and support daily Encourage compliance with meds and after care Refer to outpatient program Teach healthy lifestyle methods, i.e. diet, exercise, meditation Smoking cessation and patch if needed
[2018-01-28] MEDS: Tramadol 25 mg PO PRN ×2 (05:17→12:06)
[2018-01-28 06:44] VITALS: O2SAT 95
[2018-01-28] MEDS: Saccharomyces Boulardi 250 mg Cap PO SCH ×2 (09:42→17:15)
[2018-01-28] MEDS: Pantoprazole 40 mg EC Tab PO SCH (09:43)
[2018-01-28] MEDS: Clotrimazole 1% Cream(30 gm) TOP SCH ×2 (09:44→17:15)
--- NOTE | 2018-01-28 12:42 | PCM.PYCHPN ---
Psychiatric Progress Note - Psychiatric Progress Note Patient seen today, length of contact: 17 min Patient Chief Complaint: "I have pain" Problems Identified/Issues Discussed: The pt is seen, chart reviewed, case discussed with staff. Support given, CBT and MT used briefly No new symptoms reported, improving slowly and needs more time No SEs from medications, risks discussed. After care discussed - he still wants to try Brayan Acosta even after denied. He doesn;t see why he would be denied, and mortgage loan underwriter agrees. [facility] referral is pending Tramadol increased, gabapentin inceased Buspar started bc of anxiety Medication Change: Yes (increase gabapentin, add buspar) Medical Record Reviewed: Yes Mental Status Examination - Cognitive Function Orientation: Person, Place, Situation, Time Memory: Impaired Attention: Poor Concentration: Poor Association: WNL Fund of Knowledge: WNL - Mood Mood: Depressed, Anxious - Affect Affect: Constricted - Speech Speech: Appropriate - Formal Thought Process Formal Thought Process: No Impairment - Suicidal Ideation Suicidal Ideation: No - Homicidal Ideation Homicidal Ideation: No Goal/Treatment Plan - Goal/Treatment Plan Need for Continued Stay: Severe depression anxiety, Discharge may exacerbated symptoms, Severe functional impairment Progress Toward Problem(s) and Goals/Treatment Plan: Klonopin for anxiety - risks discussed, he did not agree with stopping on d/c Lexapro for depression Gabapentin for anxiety increased Buspar added All risks, benefits and alternatives of the meds discussed, and the pt agreed and understood. CBT for depression Psychoeducation and support daily Encourage compliance with meds and after care Refer to outpatient program Teach healthy lifestyle methods, i.e. diet, exercise, meditation Smoking cessation and patch if needed
--- NOTE | 2018-01-28 14:36 | PCM.BM ---
<Paulette Barnes - Last Filed: 01/28/18 14:35> Treatment Plan Problems - Problems identified on initial assessmt Depression Date Initiated: 01/20/18 Time Initiated: 22:15 Assessment reference: NA Status: Active Suicidal Ideation Date Initiated: 01/20/18 Time Initiated: 22:15 Assessment reference: NA Status: Active Treatment assets and liabiliti Patient Assests: cooperative, insightful, resourceful Patient Liabilities: physical pain, substance abuse, medical problems - Milieu Protocol Maintain good personal hygiene: daily Encourage regular showers, daily Remind patient to perform daily oral care, every shift Assist patient to perform ADL's Conduct patient checks and document Observation sheet: Q15 minutes Maintain personal safety: every shift Educate patient to report safety concerns to staff, every shift Monitor environment for contraband/sharps Medication safety: Monitor for expected outcome, potential side effects: every shift, Assess barriers to learning: every shift, Assess readiness for medication education: every shift Milieu Narrative: Klonopin for anxiety - risks discussed, he did not agree with stopping on d/c Lexapro for depression Gabapentin for anxiety increased Buspar added All risks, benefits and alternatives of the meds discussed, and the pt agreed and understood. CBT for depression Psychoeducation and support daily Encourage compliance with meds and after care Refer to outpatient program Teach healthy lifestyle methods, i.e. diet, exercise, meditation Smoking cessation and patch if needed Family Contact Family involvement: Patient does not wish Family/SO involvement Family contact: Patient declines to allow family contact at present - Goals for Treatment Patient goals for treatment: "I do not know what type of treatment I want." Discharge/Continuing Care - Education Needs Education Needs: Patient Medication, Patient Diagnosis/Disease Process, Patient Coping Skills, Patient Aftercare Safety Plan - Discharge Discharge Criteria: Free of Suicidal thoughts, Normal sleep pattern, Ability to care for self, No longer exhibiting s/s of withdrawal, Reduction of target symptoms Discharge to:: Other - Treatment Team Participation Patient/Family/SO Statement: Klonopin for anxiety - risks discussed, he did not agree with stopping on d/c Lexapro for depression Gabapentin for anxiety increased Buspar added All risks, benefits and alternatives of the meds discussed, and the pt agreed and understood. CBT for depression Psychoeducation and support daily Encourage compliance with meds and after care Refer to outpatient program Teach healthy lifestyle methods, i.e. diet, exercise, meditation Smoking cessation and patch if needed Discussed with Family/SO: No Was Patient/Family/SO present at Treatment Team Meeting: Yes Treatment Plan Review - Problem Depression Time Initiated: 22:15 Suicidal Ideation Time Initiated: 22:15 - Discharge / Continuing Care Discharge to:: [facility]: Partial hospital Health Needs: Medications/Rx, Alcohol/Drug treatment <Terri Solis - Last Filed: 01/29/18 09:04> Treatment Plan Problems - Problems identified on initial assessmt Depression Assessment reference: NA Suicidal Ideation Date resolved: 01/29/18 Assessment reference: NA Status: Monitor <Maryan Aceves - Last Filed: 01/29/18 12:33> - Diagnosis (1) Alcohol dependence Status: Chronic Interventions: 01/29/18 12:32 * Educate regarding risks, benefits, side effects and alternatives of medications * Use Motivational Interviewing for abstinence * Use CBT for relapse prevention * Medication management for withdrawal symptoms * Encourage medication assisted treatment * (2) Depression Status: Acute Interventions: 01/29/18 12:33 * Assess/adjust medications daily and /or as needed * See patient on an individual basis 7x/week to assess symptoms of depression * Monitor for side effects & effectiveness of medications *
[2018-01-29] MEDS: Pantoprazole 40 mg EC Tab PO SCH (09:37)
[2018-01-29] MEDS: Saccharomyces Boulardi 250 mg Cap PO SCH ×2 (09:38→18:06)
[2018-01-29] MEDS: Clotrimazole 1% Cream(30 gm) TOP SCH (09:38)
--- NOTE | 2018-01-29 12:35 | PCM.PYCHPN ---
Psychiatric Progress Note - Psychiatric Progress Note Patient seen today, length of contact: 17 min Patient Chief Complaint: "I am not 100% well, but getting ready" Problems Identified/Issues Discussed: The pt is seen, chart reviewed, case discussed with staff. The pt is compliant with medications and reports no side-effects. Symptoms are improving but needs more time to stabilize. After care discussed, support and psychoeducation given. After care is set for [facility] Medication Change: No Medical Record Reviewed: Yes Mental Status Examination - Cognitive Function Orientation: Person, Place, Situation, Time Memory: Impaired Attention: Poor Concentration: Poor Association: WNL Fund of Knowledge: WNL - Mood Mood: Depressed, Anxious - Affect Affect: Constricted - Speech Speech: Appropriate - Formal Thought Process Formal Thought Process: No Impairment - Suicidal Ideation Suicidal Ideation: No - Homicidal Ideation Homicidal Ideation: No Goal/Treatment Plan - Goal/Treatment Plan Need for Continued Stay: Severe depression anxiety, Discharge may exacerbated symptoms, Severe functional impairment Progress Toward Problem(s) and Goals/Treatment Plan: Klonopin for anxiety - risks discussed, he did not agree with stopping on d/c Lexapro for depression Gabapentin for anxiety increased Buspar added All risks, benefits and alternatives of the meds discussed, and the pt agreed and understood. CBT for depression Psychoeducation and support daily Encourage compliance with meds and after care Refer to outpatient program Teach healthy lifestyle methods, i.e. diet, exercise, meditation Smoking cessation and patch if needed
[2018-01-29] MEDS: Hydrocortisone 1% Cream (30 GM) TOP SCH (18:07)
[2018-01-30 05:57] VITALS: BP 123/74; PULSE 59; RESP 18; TEMP 97.7
[2018-01-30] MEDS: Hydrocortisone 1% Cream (30 GM) TOP SCH (09:31)
[2018-01-30] MEDS: Pantoprazole 40 mg EC Tab PO SCH (09:32)
[2018-01-30] MEDS: Saccharomyces Boulardi 250 mg Cap PO SCH (09:32)
--- NOTE | 2018-01-30 09:57 | PCM.PYCHDC ---
Mental Status Examination - Mental Status Examination Orientation: Person, Place, Situation, Time Memory: Intact Mood: Anxious Affect: Constricted Speech: Appropriate Attention: WNL Concentration: WNL Association: WNL Fund of Knowledge: WNL Formal Thought Process: No Impairment Suicidal Ideation: No Current Homicidal Ideation?: No Discharge Summary - Discharge Note Reason for Hospitalization: Feeling suicidal, depressed. Consultations:: List each consultation separately and include: 1. Reason for request. 2. Findings. 3. Follow-up Summary of Hospital Course include:: 1. Description of specific treatment plan utilized for patients during their course of treatmen. 2. Summarize the time- course for resolution of acute symptoms and/or regressed behaviors. 3. Describe issues identified and worked on during hospitalization. 4. Describe medication utilized. 5. Describe medical problems identified and treated. 6. Reassessment of suicide risk Summary of Hospital Course: The patient is seen, chart reviewed and case discussed. He is known from a consultation recently. On admission: This is a 52-year-old white male, single with no child, homeless, unemployed. The patient reports depressive symptoms but denies manic symptoms. He had thought about suicide again by jumping off a building and "everything," but currently contracts for safety and agrees to follow safety plan. He denies drugs and alcohol but he used to use cocaine and alcohol in the past. He also drank once "because of pain." He was here in the medical floor, discharged to a [facility] where he stayed 2 weeks, then he went to his sister's house but he could only stay for 2 days there b/c "it's too crowded, we don't get along." He then went to [facility] skilled nursing but they made him sleep in his wheelchair and then gave him a hard time. He is also unhappy that he cannot walk properly and had his leg swollen. He says there was a glitch and he couldn't use his Abx for a few days but he was on IV abx for 3 weeks. He has an appt with his ortho and asked us to reschedule. He looks very depressed due to his ongoing stressors. Support given Past psych history: He was hospitalized twice in [facility] but last one was in . He is not on any medications. He attempted suicide 4 times he claims and last one was 2 months ago by trying to hang himself. Medical history: He had MRSA and cellulitis now. Family psych history: Mother's side had depression Hospital course: The pt was admitted and started on treatment with psychotherapy, support, psychoeducation and medications. OK and CBT used. The pt attended groups and activities, as well as milieu therapy. All the risks and benefits of medications are discussed and the patient understood and agreed. The pt improved with the treatments provided. However, it took much time due to his severe condition He was able to walk better, smile more and denied SI, HI and had no cravings on his dc date After care discussed with the patient. He is rejected by [facility] but accepted by [facility] - Final Diagnosis (DSM 5) Condition upon Discharge: STABLE DSM 5: Major depressive disorder, recurrent, severe without psychotic features Anxiety disorder unspecified Cocaine use disorder in remission Alcohol use disorder in partial remission Disposition: HOME/ ROUTINE Follow-up Treatment Plan: Continue below medications after discharge. Follow after care plan as discussed. Use relapse prevention skills Return to ER or call 911 if suicidal, homicidal or symptoms relapse. Stay away from stress, alcohol and drugs. See primary doctor regularly and get labs. Consult PCP for pain meds but refrain from opioid meds Prescriptions/Medication Reconciliation: busPIRone [Buspar] 10 mg PO BID #60 tab Escitalopram [Lexapro] 20 mg PO DAILY #30 tab Gabapentin [Neurontin] 600 mg PO TID #30 tab Pantoprazole [Protonix EC Tab] 40 mg PO DAILY #30 ect QUEtiapine [SEROquel] 50 mg PO HS #30 tab Saccharomyces Boulardi [Florastor] 250 mg PO BID #10 cap Sulfamethoxazole/Trimethoprim [Bactrim DS Tab] 1 tab PO Q12 #10 tab traZODone [Desyrel] 100 mg PO HS #30 tab - Smoking Cessation Smoking Cessation Medication prescribed: No - Antipsychotic Medications Pt discharged on 2 or more routine antipsychotic medications: No
== END 2018-01-30 12:00 | disposition home or self-care (01) | DRG 430 ==
LOC: C.ER 17:50 → C.5E 21:29
PROC: GZHZZZZ Group Psychotherapy (ICD-10-PCS; principal; 2018-01-20)
DX: F33.2 Major depressive disorder, recurrent severe without psychotic features (principal); F14.11 Cocaine abuse, in remission; L03.115 Cellulitis of right lower limb; F41.9 Anxiety disorder, unspecified; F17.210 Nicotine dependence, cigarettes, uncomplicated; J42 Unspecified chronic bronchitis; K29.70 Gastritis, unspecified, without bleeding; Z87.01 Personal history of pneumonia (recurrent); F10.120 Alcohol abuse with intoxication, uncomplicated; Y90.3 Blood alcohol level of 60-79 mg/100 ml; F19.10 Other psychoactive substance abuse, uncomplicated

== ENCOUNTER 2018-04-15 22:48 | Emergency (ER) | payer MEDICAID ==
[2018-04-15 22:48] VITALS: BMI 25.8
[2018-04-15] MEDS ORDERED: Naloxone 0.4 mg/ml Inj (Adult) IV ONE (23:44)
--- NOTE | 2018-04-15 23:59 | C.PDOC ---
History Of Present Illness <Raulito Galarza - Last Filed: 04/15/18 23:54> <Olivier Keith - Last Filed: 04/16/18 06:32> 53 y/o male brought to ED by ambulance after he was found on the side of the street having difficulty to arouse. Patient was administered Narcan 2mg intranasally by police and .4 mg IV by paramedics. Patient is intoxicated. He admits to alcohol use and heroin use today. Denies any physical complaints. ( Raulito Galarza) History Per: Patient History/Exam Limitations: no limitations Onset/Duration Of Symptoms: Hrs Current Symptoms Are (Timing): Still Present Suicide/Self Injury Attempted (Context): None Modifying Factor(s): Alcohol, Narcotics (Heroin) Associated Symptoms: denies: Suicidal Thoughts, Suicidal Plan Involuntary Hold By: None Recent travel outside of the [place]: No <Raulito Galarza - Last Filed: 04/15/18 23:54> <Olivier Keith - Last Filed: 04/16/18 06:32> Time Seen by Provider: 04/15/18 23:44 Chief Complaint (Nursing): Substance Abuse Past Medical History Reviewed: Historical Data, Nursing Documentation, Vital Signs - Medical History PMH: Anxiety, Bipolar Disorder, Bronchitis, COPD, Depression, Hepatitis (C), Pancreatitis, Pneumonia, Post Traumatic Stress Disorder Family History: States: Unknown Family Hx - Social History Hx Tobacco Use: Yes Hx Alcohol Use: Yes (two six pack of beer twice at week.) Hx Substance Use: Yes - Immunization History Hx Tetanus Toxoid Vaccination: No Hx Influenza Vaccination: Yes Hx Pneumococcal Vaccination: Yes <Raulito Galarza - Last Filed: 04/15/18 23:54> Vital Signs: Last Vital Signs Temp 98 F 04/16/18 04:24 Pulse 74 04/16/18 05:48 Resp 18 04/16/18 05:48 BP 120/74 04/16/18 04:24 Pulse Ox 98 04/16/18 05:48 - [facility] Procedures DETOXIFICATION SERVICES FOR SUBSTANCE ABUSE TREATMENT (05/26/16) GROUP DEICER TESTER FOR SUBSTANCE ABUSE TREATMENT, PSYCHOEDUCATION (02/16/18) GROUP PSYCHOTHERAPY (02/16/18) INDIV PSYCHOTHERAPY FOR SUBSTANCE ABUSE TREATMENT, SUPPORT (02/16/18) INSERTION OF INFUSION DEV INTO SUP VENA CAVA, [facility] APPROACH (12/29/17) LINEAR REP LID LACER (07/03/15) MEDICATION MANAGEMENT (02/16/18) MEDS MGMT FOR SUBSTANCE ABUSE TREATMENT, OTH REPL MED (02/16/18) SUTURE OF LIP LACERATION (07/03/15) Review Of Systems Constitutional: Negative for: Fever, Chills Cardiovascular: Negative for: Chest Pain Respiratory: Negative for: Shortness of Breath Gastrointestinal: Negative for: Nausea, Vomiting, Abdominal Pain, Diarrhea Skin: Negative for: Rash Neurological: Negative for: Weakness, Numbness Psych: Negative for: Suicidal ideation <Raulito Galarza - Last Filed: 04/15/18 23:54> Physical Exam - Physical Exam Appears: Non-toxic, No Acute Distress, Other (Argumentative, intoxicated) Eye(s): bilateral: Other (Pin point pupils) Nose: Normal, No Discharge Oral Mucosa: Moist Tongue: Normal Appearing Lips: Normal Appearing Throat: Normal, No Erythema, No Exudate, No Drooling Neck: Supple Chest: Symmetrical, No Tenderness Cardiovascular: Rhythm Regular, No Murmur Respiratory: Normal Breath Sounds, No Decreased Breath Sounds, No Rales, No Rhonchi, No Wheezing Gastrointestinal/Abdominal: Soft, No Tenderness Extremity: Normal ROM, No Deformity Extremity: Bilateral: Atraumatic, Normal Color And Temperature, Normal ROM Pulses: Left Dorsalis Pedis: Normal, Right Dorsalis Pedis: Normal Neurological/Psych: Oriented x3 (Awake and alert), Normal Speech (Speaking in full sentences), Other (No focal deficits ) Gait: Steady <Raulito Galarza - Last Filed: 04/15/18 23:54> Medical Decision Making <Raulito Galarza - Last Filed: 04/15/18 23:54> <Olivier Keith - Last Filed: 04/16/18 06:32> Medical Decision Making: Administered Narcan (Raulito Galarza) Disposition <Raulito Galarza - Last Filed: 04/15/18 23:54> - Disposition Disposition Time: 06:30 - POA Present On Arrival: None <Olivier Keith - Last Filed: 04/16/18 06:32> - Disposition Referrals: [facility] [Outside] Condition: STABLE Instructions: Alcohol Abuse and Alcoholism (DC), Drug Abuse and Drug Addiction (DC) Forms: [facility] (Swedish) - Clinical Impression Clinical Impression: Alcohol use disorder, severe, dependence, Narcotic abuse - Scribe Statement The provider has reviewed the documentation as recorded by the Scribe <Raulito Galarza - Last Filed: 04/15/18 23:54> <Olivier Keith - Last Filed: 04/16/18 06:32> - Scribe Statement Katelyn Alegria All medical record entries made by the Scribe were at my direction and personally dictated by me. I have reviewed the chart and agree that the record accurately reflects my personal performance of the history, physical exam, medical decision making, and the department course for this patient. I have also personally directed, reviewed, and agree with the discharge instructions and disposition. (Raulito Galarza)
[2018-04-16] MEDS ORDERED: Naloxone 0.4 mg/ml Inj (Adult) ONE (00:05)
[2018-04-16 00:12] VITALS: TEMP 98
--- NOTE | 2018-04-16 00:12 | C.PDOC ---
Time Seen by Provider: 04/15/18 23:44 Chief Complaint (Nursing): Substance Abuse Past Medical History Vital Signs: Last Vital Signs Temp 98.4 F 04/15/18 22:56 Pulse Resp BP Pulse Ox - Medical History PMH: Anxiety, Bipolar Disorder, Bronchitis, COPD, Depression, Hepatitis (C), Pancreatitis, Pneumonia, Post Traumatic Stress Disorder Denies: Diabetes, HIV (Patient denied), HTN (Patient denied), Chronic Kidney Disease, Seizures, Sexually Transmitted Disease (Patient denied) - [facility] Procedures DETOXIFICATION SERVICES FOR SUBSTANCE ABUSE TREATMENT (05/26/16) GROUP CLINICAL EDITOR FOR SUBSTANCE ABUSE TREATMENT, PSYCHOEDUCATION (02/16/18) GROUP PSYCHOTHERAPY (02/16/18) INDIV PSYCHOTHERAPY FOR SUBSTANCE ABUSE TREATMENT, SUPPORT (02/16/18) INSERTION OF INFUSION DEV INTO SUP VENA CAVA, [facility] APPROACH (12/29/17) LINEAR REP LID LACER (07/03/15) MEDICATION MANAGEMENT (02/16/18) MEDS MGMT FOR SUBSTANCE ABUSE TREATMENT, OTH REPL MED (02/16/18) SUTURE OF LIP LACERATION (07/03/15) Family History: States: Unknown Family Hx - Social History Hx Tobacco Use: Yes Hx Alcohol Use: Yes (two six pack of beer twice at week.) Hx Substance Use: Yes - Immunization History Hx Tetanus Toxoid Vaccination: No Hx Influenza Vaccination: Yes Hx Pneumococcal Vaccination: Yes ED Course And Treatment Progress Note: 0000: asleep, mild desat, pinpoint pupils, Narcan IV ordered Medical Decision Making Medical Decision Making: alcohol/heroine abuse Disposition - Disposition Disposition Time: 01:00 Condition: GOOD - Clinical Impression Clinical Impression: Alcohol use disorder, severe, dependence, Narcotic abuse Physician Patient Turnover Patient Signed Over To: Olivier Keith Handoff Comments: dispo in AM when sober
[2018-04-16 04:25] VITALS: BP 120/74
[2018-04-16 05:49] VITALS: PULSE 74; RESP 18; O2SAT 98
--- NOTE | 2018-04-16 23:21 | CARD ---
APPROVED REPORT EKG Measurement Heart [id number] <Conclusion> Sinus tachycardia Otherwise normal ECG
== END 2018-04-16 06:55 | disposition home or self-care (01) ==
LOC: C.ER 22:48
DX: F10.20 Alcohol dependence, uncomplicated (principal); F11.10 Opioid abuse, uncomplicated; Z72.0 Tobacco use
CPT/HCPCS: 93005; 99285; J2310

== ENCOUNTER 2018-04-22 14:59 | Emergency (ER) | payer MEDICAID ==
[2018-04-22 14:59] VITALS: BMI 25.8
== END 2018-04-22 15:31 | disposition left against medical advice (07) ==
LOC: C.ER 14:59
DX: Z02.89 Encounter for other administrative examinations (principal); F19.10 Other psychoactive substance abuse, uncomplicated

== ENCOUNTER 2018-04-27 13:48 | Emergency (ER) | payer MEDICAID ==
[2018-04-27 13:49] VITALS: BMI 25.8
[2018-04-27 13:53] VITALS: BP 138/87; PULSE 83; RESP 18; TEMP 98; O2SAT 98
--- NOTE | 2018-04-27 14:35 | C.PDOC ---
History Of Present Illness 53 year old male, with PMHx of depression, alcohol abuse, is brought to ED by EMS for public intoxication. Pt is well know to ED staff for multiple prior visits for similar reason. Pt admits to drinking alcohol today. On arrival, pt was groggy but became awake and alert. Pt complains of epigastric abdominal pain and states he has chronic pancreatitis. Otherwise, denies fever, chills, n/ v/d, back pain, or urinary symptoms. Time Seen by Provider: 04/27/18 13:51 Chief Complaint (Nursing): Substance Abuse History Per: Patient History/Exam Limitations: no limitations Onset/Duration Of Symptoms: Gradual Current Symptoms Are (Timing): Still Present Suicide/Self Injury Attempted (Context): None Modifying Factor(s): Alcohol Associated Symptoms: denies: Suicidal Thoughts, Suicidal Plan Involuntary Hold By: None Recent travel outside of the [place]: No Additional History Per: EMS Past Medical History Reviewed: Historical Data, Nursing Documentation, Vital Signs Vital Signs: Last Vital Signs Temp 98 F 04/27/18 13:49 Pulse 83 04/27/18 13:49 Resp 18 04/27/18 13:49 BP 138/87 04/27/18 13:49 Pulse Ox 98 04/27/18 14:38 - Medical History PMH: Anxiety, Bipolar Disorder, Bronchitis, COPD, Depression, Hepatitis (C), Pancreatitis, Pneumonia, Post Traumatic Stress Disorder Denies: Diabetes, HIV (Patient denied), HTN (Patient denied), Chronic Kidney Disease, Seizures, Sexually Transmitted Disease (Patient denied) - [facility] Procedures DETOXIFICATION SERVICES FOR SUBSTANCE ABUSE TREATMENT (05/26/16) GROUP APPRENTICE PLUMBER FOR SUBSTANCE ABUSE TREATMENT, PSYCHOEDUCATION (02/16/18) GROUP PSYCHOTHERAPY (02/16/18) INDIV PSYCHOTHERAPY FOR SUBSTANCE ABUSE TREATMENT, SUPPORT (02/16/18) INSERTION OF INFUSION DEV INTO SUP VENA CAVA, PERC APPROACH (12/29/17) LINEAR REP LID LACER (07/03/15) MEDICATION MANAGEMENT (02/16/18) MEDS MGMT FOR SUBSTANCE ABUSE TREATMENT, OTH REPL MED (02/16/18) SUTURE OF LIP LACERATION (07/03/15) Family History: States: Unknown Family Hx - Social History Hx Tobacco Use: Yes Hx Alcohol Use: Yes (two six pack of beer twice at week.) Hx Substance Use: Yes - Immunization History Hx Tetanus Toxoid Vaccination: No Hx Influenza Vaccination: Yes Hx Pneumococcal Vaccination: Yes Review Of Systems Except As Marked, All Systems Reviewed And Found Negative. Constitutional: Negative for: Fever, Chills Cardiovascular: Negative for: Chest Pain, Palpitations Respiratory: Negative for: Cough, Shortness of Breath Gastrointestinal: Negative for: Nausea, Vomiting, Abdominal Pain Neurological: Negative for: Headache, Dizziness Psych: Negative for: Suicidal ideation Physical Exam - Physical Exam Appears: Non-toxic, No Acute Distress Skin: Normal Color, Warm, Dry Head: Atraumatic, Normacephalic Eye(s): bilateral: Normal Inspection Oral Mucosa: Moist Neck: Normal ROM, Supple Chest: Symmetrical Cardiovascular: Rhythm Regular, No Murmur Respiratory: Normal Breath Sounds, No Rales, No Rhonchi, No Wheezing Gastrointestinal/Abdominal: Soft, No Tenderness Extremity: Normal ROM Neurological/Psych: Oriented x3, Normal Speech ED Course And Treatment - Laboratory Results Result Diagrams: 04/27/18 14:50 04/27/18 14:50 O2 Sat by Pulse Oximetry: 98 (RA) Pulse Ox Interpretation: Normal Medical Decision Making Medical Decision Making: Plan: Blood work Urinalysis CXR EKG Patient awake , alert, becomes agressive, loud, yelling. Patient is assaultive towards manufacturing plant technician, spitting. Code maloney called, patient discharged, stable, no ataxia, belligerent. Disposition Counseled Patient/Family Regarding: Diagnosis - Disposition Disposition: HOME/ ROUTINE Disposition Time: 15:24 Condition: STABLE Forms: [facility] (Marshallese) - Clinical Impression Clinical Impression: Alcohol abuse - Scribe Statement The provider has reviewed the documentation as recorded by the Scribe KP All medical record entries made by the Scribe were at my direction and personally dictated by me. I have reviewed the chart and agree that the record accurately reflects my personal performance of the history, physical exam, medical decision making, and the department course for this patient. I have also personally directed, reviewed, and agree with the discharge instructions and disposition.
[2018-04-27 14:55] LABS: BASO # 0.1 K/uL (0.0-0.2); BASO % 0.9 % (0.0-2.0); EOS # 0.2 K/uL (0.0-0.7); EOS % 2.6 % (0.0-4.0); LYMPH # 3.8 K/uL (1.0-4.3); LYMPH % 45.1 % (20.0-40.0); MEAN CORPUSCULAR HEMOGLOBIN 29.7 pg (27.0-31.0); MEAN CORPUSCULAR HGB CONC 34.3 g/dL (33.0-37.0); MEAN PLATELET VOLUME 8.5 fL (7.2-11.7); MONO # 0.5 K/uL (0.0-0.8); MONO % 6.2 % (0.0-10.0); NEUT # 3.8 K/uL (1.8-7.0); NEUT % 45.2 % (50.0-75.0); NRBC % 0.1 % (0.0-2.0); RBC 5.06 Mil/uL (4.40-5.90); WHITE BLOOD COUNT 8.5 K/uL (4.8-10.8)
[2018-04-27 14:56] LABS: MEAN CELL VOLUME 86.6 fL (80.0-94.0)
[2018-04-27 15:10] LABS: ALB/GLOB RATIO 1.5 (1.0-2.1); ALBUMIN 4.7 g/dL (3.5-5.0); ALT/SGPT 114 U/L (21-72); AST/SGOT 118 U/L (17-59); BLOOD UREA NITROGEN 8 mg/dL (9-20); CALCIUM 8.9 mg/dl (8.6-10.4); GFR AFRICAN-AMERICAN > 60; GFR NON-AFRICAN AMERICAN > 60
[2018-04-27 15:23] LABS: URINE BILIRUBIN NEGATIVE (NEGATIVE); URINE BLOOD NEGATIVE (NEGATIVE); URINE CLARITY Clear (Clear); URINE COLOR Yellow (YELLOW); URINE GLUCOSE (UA) NORMAL (Normal); URINE LEUKOCYTE ESTERASE NEG Leu/uL (Negative); URINE PROTEIN NEGATIVE (NEGATIVE); URINE UROBILINOGEN NORMAL mg/dL (0.2-1.0)
--- NOTE | 2018-04-27 15:30 | RAD ---
Chest x-ray single frontal view History: Detox. Comparison: 01/03/2018 Findings: Mild venous congestion. Heart size within normal limits. Degenerative changes in the spine. Foreshortening of the distal left clavicle. Impression: Mild venous congestion.
[2018-04-27 16:02] LABS: BARBITURATES, UR NEGATIVE (NEGATIVE); BENZODIAZEPINES, UR NEGATIVE (NEGATIVE); OPIATES, UR NEGATIVE (NEGATIVE); PHENCYCLIDINE, UR NEGATIVE (NEGATIVE)
== END 2018-04-27 15:25 | disposition home or self-care (01) ==
LOC: C.ER 13:48
DX: F10.10 Alcohol abuse, uncomplicated (principal); Z87.891 Personal history of nicotine dependence
CPT/HCPCS: 71045; 80053; 80320; 80324; 80345; 80346; 80349; 80353; 80358; 80361; 81001; 82948; 83992; 85025; 96374; 99284; J1885

== ENCOUNTER 2018-06-16 22:56 | Emergency (ER) | payer MEDICAID ==
[2018-06-16 22:56] VITALS: BMI 31.5
[2018-06-16 23:08] VITALS: BP 133/79; PULSE 106; RESP 20; TEMP 97.6; O2SAT 98
--- NOTE | 2018-06-16 23:28 | C.PDOC ---
History Of Present Illness 53 year old male presents to the ER with complaint of epigastric burning and abdominal pain. Patient states he has Hx of pancreatitis, admits he has been and notes he has been drinking ETOH all day. Patient is also complaining of chronic lower extremity edema. He denies chest pain, SOB, palpitations, vomiting, diarrhea, nausea, fever, dysuria/hematuria. Time Seen by Provider: 06/16/18 23:08 Chief Complaint (Nursing): Substance Abuse History Per: Patient History/Exam Limitations: no limitations Onset/Duration Of Symptoms: Hrs Suicide/Self Injury Attempted (Context): None Modifying Factor(s): Alcohol Involuntary Hold By: None Recent travel outside of the [place]: No Past Medical History Reviewed: Historical Data, Nursing Documentation, Vital Signs Vital Signs: Last Vital Signs Temp 97.6 F 06/16/18 23:04 Pulse 106 H 06/16/18 23:04 Resp 20 06/16/18 23:04 BP 133/79 06/16/18 23:04 Pulse Ox 98 06/17/18 06:44 - Medical History PMH: Anxiety, Bipolar Disorder, Bronchitis, COPD, Depression, Hepatitis (C), Pancreatitis, Pneumonia, Post Traumatic Stress Disorder - [facility] Procedures DETOXIFICATION SERVICES FOR SUBSTANCE ABUSE TREATMENT (05/26/16) GROUP CHILDCARE ATTENDANT FOR SUBSTANCE ABUSE TREATMENT, PSYCHOEDUCATION (02/16/18) GROUP PSYCHOTHERAPY (02/16/18) INDIV PSYCHOTHERAPY FOR SUBSTANCE ABUSE TREATMENT, SUPPORT (02/16/18) INSERTION OF INFUSION DEV INTO SUP VENA CAVA, PERC APPROACH (12/29/17) LINEAR REP LID LACER (07/03/15) MEDICATION MANAGEMENT (02/16/18) MEDS MGMT FOR SUBSTANCE ABUSE TREATMENT, OTH REPL MED (02/16/18) SUTURE OF LIP LACERATION (07/03/15) Family History: States: No Known Family Hx - Social History Hx Tobacco Use: Yes Hx Alcohol Use: Yes Hx Substance Use: Yes (DENIES THIS VISIT) - Immunization History Hx Tetanus Toxoid Vaccination: No Hx Influenza Vaccination: Yes Hx Pneumococcal Vaccination: Yes Review Of Systems Constitutional: Negative for: Fever, Chills Cardiovascular: Negative for: Chest Pain, Palpitations Respiratory: Negative for: Cough, Shortness of Breath Gastrointestinal: Positive for: Abdominal Pain. Negative for: Nausea, Vomiting , Diarrhea Genitourinary: Negative for: Dysuria, Hematuria Physical Exam - Physical Exam Appears: Well, Non-toxic, Other (Crying, Tearful) Skin: Warm, Dry Head: Normacephalic Eye(s): bilateral: Normal Inspection Oral Mucosa: Moist Neck: Supple Chest: Symmetrical Cardiovascular: Rhythm Regular Respiratory: Normal Breath Sounds, No Rales, No Rhonchi, No Wheezing Gastrointestinal/Abdominal: Bowel Sounds, Soft, Tenderness (Mild epigastric TTP , (-) Madrigal's, (-) McBurney's), No Guarding, No Rebound Back: Normal Inspection, No CVA Tenderness Extremity: Pedal Edema (+1 pitting edema with chronic skin changes), Capillary Refill (< 2 sec all digits) Pulses: Left Dorsalis Pedis: Normal, Right Dorsalis Pedis: Normal Neurological/Psych: Oriented x3 ED Course And Treatment - Laboratory Results Result Diagrams: 06/17/18 00:08 06/17/18 00:08 O2 Sat by Pulse Oximetry: 98 (Room air) Pulse Ox Interpretation: Normal Progress Note: Blood work and UA ordered and reviewed. Patient given IV NS bolus, IV protonix. 4:00- Patient is AAOx3, ambulating normally in the ED. On exam, abdomen is soft and nontender. Patient is clinically sober at this time, will discharge. Patient instructed to follow up with PMD/clinic in 1-2 days, and he understands he should return to ED if symptoms worsen. Disposition Counseled Patient/Family Regarding: Studies Performed, Diagnosis, Need For Followup - Disposition Referrals: [facility] [Outside] Disposition: HOME/ ROUTINE Disposition Time: 16:00 Condition: STABLE Instructions: Alcohol Abuse and Alcoholism (DC) Forms: [employer] (Kinyarwanda) Print Language: SERBIAN - POA Present On Arrival: None - Clinical Impression Clinical Impression: Alcohol abuse - Scribe Statement The provider has reviewed the documentation as recorded by the Scribe Brigido Kaur All medical record entries made by the Scribe were at my direction and personally dictated by me. I have reviewed the chart and agree that the record accurately reflects my personal performance of the history, physical exam, medical decision making, and the department course for this patient. I have also personally directed, reviewed, and agree with the discharge instructions and disposition.
[2018-06-16] MEDS ORDERED: Sodium Chloride 0.9% 1,000 ML IV ONE (23:48)
[2018-06-17 00:13] LABS: BASO # 0.1 K/uL (0.0-0.2); BASO % 1.1 % (0.0-2.0); EOS # 0.1 K/uL (0.0-0.7); EOS % 2.1 % (0.0-4.0); HEMOGLOBIN 13.9 g/dL (12.0-18.0); LYMPH # 3.4 K/uL (1.0-4.3); LYMPH % 47.4 % (20.0-40.0); MEAN CELL VOLUME 88.5 fL (80.0-94.0); MEAN CORPUSCULAR HEMOGLOBIN 30.1 pg (27.0-31.0); MONO # 0.8 K/uL (0.0-0.8); MONO % 11.5 % (0.0-10.0); NEUT # 2.7 K/uL (1.8-7.0); NEUT % 37.9 % (50.0-75.0); NRBC % 0.1 % (0.0-2.0); RBC 4.61 Mil/uL (4.40-5.90); RED CELL DISTRIBUTION WIDTH 13.9 % (11.5-14.5); WHITE BLOOD COUNT 7.1 K/uL (4.8-10.8)
[2018-06-17 00:23] LABS: ALB/GLOB RATIO 1.5 (1.0-2.1); ALBUMIN 4.3 g/dL (3.5-5.0); ALT/SGPT 107 U/L (21-72); AST/SGOT 103 U/L (17-59); BLOOD UREA NITROGEN 16 mg/dL (9-20); CALCIUM 8.7 mg/dl (8.6-10.4); GFR NON-AFRICAN AMERICAN > 60; LIPASE 237 U/L (23-300)
== END 2018-06-17 04:15 | disposition home or self-care (01) ==
LOC: SUPCPDRO 22:56 → C.ER 22:56
DX: F10.10 Alcohol abuse, uncomplicated (principal); J44.9 Chronic obstructive pulmonary disease, unspecified; Z72.0 Tobacco use
CPT/HCPCS: 80053; 83690; 85025; 96374; 99283; C9113; J7030